=== PATIENT | male | born 1955 | race Caucasian/White ===

== ENCOUNTER 2017-09-22 06:17 | Day surgery (SDC) | payer OTHER ==
[2017-09-18 15:45] VITALS: BMI 25.0
[~2017-09-22 06:17] MED LIST: DEXAMETHASONE SOD PHOSPHATE 10 MG/ML 1 ML VIAL IV ONE; HEPARIN SODIUM,PORCINE 5,000 UNIT/ML 1 ML VIAL SQ ONE; LACTATED RINGERS 1,000 ML IV SCH; LIDOCAINE 1% 20 ML VIAL (10MG/ML) FOR IV START INTRADERMA PRN; MIDAZOLAM 2 MG/2 ML VIAL IV PRN; MORPHINE SULFATE 2 MG/ML SYRINGE IV PRN; ONDANSETRON 4 MG/2 ML VIAL IVP ONE; SCOPOLAMINE 1.5MG/72HR PATCH TRANSDERM ONE; ceFAZolin IN SWFI 2 GM/20 ML SYRINGE IVP ONE
[2017-09-22] MEDS ORDERED: LACTATED RINGERS 1,000 ML IV ONE ×2 (07:16→09:08)
--- NOTE | 2017-09-22 07:55 | P.GSHP ---
History of Present Illness H&P Date: 09/22/17 Chief Complaint: Incarcerated umbilical hernia This a 6-year-old male referred from Dr. Emely Baker. Patient rents today for laparoscopic robotic-assisted repair of incarcerated umbilical hernia. Past Medical History Past Medical History: Hyperlipidemia, Osteoarthritis (OA), Prostate Disorder History of Any Multi-Drug Resistant Organisms: None Reported Past Surgical History: Hernia Repair Additional Past Surgical History / Comment(s): inguinal hernia repair Past Anesthesia/Blood Transfusion Reactions: No Reported Reaction Smoking Status: Former smoker - Past Family History Mother Family Medical History: No Reported History Medications and Allergies Home Medications Medication Instructions Recorded Confirmed Type Atorvastatin [Lipitor] 40 mg PO HS 09/18/17 09/22/17 History Naproxen Sodium [Aleve] 220 mg PO BID PRN 09/18/17 09/18/17 History Prozac(Unknown Dose) 1 tab PO DAILY 09/18/17 09/22/17 History Seroquel(Unknown Dose) 1 tab PO HS 09/18/17 09/22/17 History Tamsulosin HCl [Flomax] 0.4 mg PO BID 09/18/17 09/22/17 History Allergies Allergy/AdvReac Type Severity Reaction Status Date / Time No Known Allergies Allergy Verified 09/18/17 14:44 Surgical - Exam Vital Signs Temp Pulse Resp BP Pulse Ox 97.9 F 95 18 156/90 98 09/22/17 07:03 09/22/17 07:03 09/22/17 07:03 09/22/17 07:03 09/22/17 07:03 - General well developed, no distress - Eyes PERRL - ENT normal pinna - Neck no masses - Respiratory normal expansion - Cardiovascular Rhythm: regular - Abdomen Abdomen: soft, non tender Hernia: umbilical (Incarcerated umbilical hernia 3 cm) Assessment and Plan Assessment: Incarcerated umbilical hernia. We'll perform laparoscopic robotic assistance repair.
[2017-09-22] MEDS ORDERED: PROPOFOL 10 MG/ML 20 ML VIAL IV ONE (07:58)
[2017-09-22] MEDS ORDERED: GLYCOPYRROLATE 0.2 MG/ML 2 ML VIAL ONE (07:58)
[2017-09-22] MEDS ORDERED: ROCURONIUM BROMIDE 10 MG/ML 10 ML VIAL IV ONE (07:58)
[2017-09-22] MEDS ORDERED: LIDOCAINE 1% INJ 10MG/ML (20 ML MDV) ONE (07:58)
[2017-09-22] MEDS ORDERED: NEOSTIGMINE 1 MG/ML 10 ML VIAL ONE (07:58)
[2017-09-22] MEDS ORDERED: SUCCINYLCHOLINE CHLORIDE 100 MG/5 ML SYR IV ONE (07:58)
[2017-09-22] MEDS ORDERED: fentaNYL (PF) 50 MCG/ML 2 ML AMP ONE (07:58)
[2017-09-22] MEDS ORDERED: BUPIVACAINE (PF) 0.25% 30 ML VIAL SQ ONE ×2 (08:24→08:30)
[2017-09-22 09:23] VITALS: TEMP 97.8
[2017-09-22] MEDS: fentaNYL (PF) 50 MCG/ML 2 ML AMP IVP ONE ×2 (09:31→09:38)
--- NOTE | 2017-09-22 09:38 | P.OP ---
Date of Procedure: 09/22/17 Preoperative Diagnosis: Incarcerated umbilical hernia Postoperative Diagnosis: Incarcerated umbilical hernia Procedure(s) Performed: Laparoscopic robotic system repair of incarcerated umbilical hernia Partial omentectomy Anesthesia: KARLA Surgeon: Dwight Gagnon Estimated Blood Loss (ml): 5 Pathology: other (Omentum) Condition: stable Disposition: PACU Description of Procedure: RThe patient was placed on the operating table in the supine position. He received general anesthesia. His abdomen was prepped and draped usual fashion. Using a 5 mm optical trocar under direct visualization the peritoneal cavity was entered in the left upper quadrant. The abdomen was then insufflated. The laparoscope was placed back into the perineal cavity. Next a 8 mm robotic trocar was placed in the left lower quadrant and a 12 mm robotic trocar was placed in the left lateral position. The original 5 mm trocar was exchanged for a 8 mm robotic trocar. The patient's placed in the left side up position. And the patient was undocked the robot. The umbilical hernia was visualized. Using hook cautery the peritoneum over the umbilical hernia was excised. Incarcerated omentum was excised. The fascial opening was repaired using 0V LOC suture. Next a piece of 11 cm round ventral light ST mesh was placed into the. Cavity and secured with 2 OV lock suture. The patient was undocked the robot. The needles were retrieved. The incarcerated omentum was retrieved. The fascia of the 12 mm trocar site was closed with 0 Ethibond suture. Skin was closed interrupted 3-0 Monocryl suture. Dermabond dressings was applied. Patient top procedure well and was sent to recovery room stable condition.
[2017-09-22] MEDS ORDERED: KETOROLAC 30 MG/ML 1 ML VIAL IVP ONE (09:45)
[2017-09-22] MEDS ORDERED: HYDROcodone/APAP 7.5-325MG 1 EACH TAB PO ONE (10:27)
[2017-09-22 12:20] VITALS: RESP 16
[2017-09-22] MEDS ORDERED: TAMSULOSIN 0.4 MG CAP.ER.24H PO STA (14:27)
[2017-09-22 15:25] VITALS: BP 140/85; PULSE 78
[2017-09-22] MEDS ORDERED: ONDANSETRON 4 MG/2 ML VIAL IVP ONE (16:35)
== END 2017-09-22 18:28 | disposition home or self-care (01) ==
LOC: OR 06:17
PROVIDERS: ATTEND Surgery
DX: K42.0 Umbilical hernia with obstruction, without gangrene (principal); E78.5 Hyperlipidemia, unspecified; M19.90 Unspecified osteoarthritis, unspecified site; N40.0 Benign prostatic hyperplasia without lower urinary tract symptoms; F32.9 Major depressive disorder, single episode, unspecified; Z87.891 Personal history of nicotine dependence; Z79.899 Other long term (current) drug therapy
CPT/HCPCS: 88305; 49653; C1781; J1644; J1100; J2405; J3010; J1885; J0690

== ENCOUNTER → 2019-03-29 | Outpatient (CLI) | payer OTHER ==
--- NOTE | 2019-03-29 11:36 | US ---
EXAMINATION TYPE: US venous doppler duplex LE LT DATE OF EXAM: 03/29/2019 11:06 AM COMPARISON: NONE CLINICAL HISTORY: Left Lower Ext, R22.42 swelling/mass. SIDE PERFORMED: Left TECHNIQUE: The lower extremity deep venous system is examined utilizing real time linear array sonog katlin with graded compression, doppler sonography and color-flow sonography. VESSELS IMAGED: External Iliac Vein (EIV) Common Femoral Vein Deep Femoral Vein Greater Saphenous Vein * Femoral Vein Popliteal Vein Small Saphenous Vein * Proximal Calf Veins (* superficial vessels) Left Leg: Negative for DVT IMPRESSION: 1. Left lower extremity ultrasound negative for deep venous thrombosis.
== END | disposition home or self-care (01) ==
LOC: RADUSWWP 10:35
PROVIDERS: ATTEND Family Medicine
DX: R22.42 Localized swelling, mass and lump, left lower limb (principal)

== ENCOUNTER → 2019-04-21 | Outpatient (CLI) | payer OTHER ==
--- NOTE | 2019-04-22 03:07 | MR ---
EXAMINATION TYPE: MR ankle LT wo con DATE OF EXAM: 04/21/2019 COMPARISON: None HISTORY: Lt ankle pain/swelling, no trauma; did not bring outside xrays Standard multiplanar, multisequence MRI departmental protocol Multiplanar, multisequence images of the left ankle were acquired. FINDINGS: The Achilles tendon is intact. Plantar fascia is intact. Ankle mortise is anatomic. Joint s paces are fairly normal. The collateral ligaments appear intact. There is a mild ankle joint effusion . There is no evidence of a fracture. I see no bony destructive process. The medial and lateral flexo r tendons of the ankle appear intact. There is moderate subcutaneous edema around the lower leg and a nkle and foot. There is a moderate plantar calcaneal spur. IMPRESSION: No fracture seen. Extensive subcutaneous edema. Calcaneal spurring. No evidence of ligament or tendon tear. Ankle joint effusion consistent with synovitis.
== END | disposition home or self-care (01) ==
LOC: RADMRIMAIN 18:21
PROVIDERS: ATTEND Nurse Practitioner Family
DX: M77.32 Calcaneal spur, left foot (principal)

== ENCOUNTER 2019-06-07 08:33 | Day surgery (SDC) | payer OTHER ==
[2019-06-07 09:34] VITALS: TEMP 97
[2019-06-07] MEDS ORDERED: LACTATED RINGERS 1,000 ML IV ONE (09:34)
[2019-06-07] MEDS ORDERED: PROPOFOL 10 MG/ML 20 ML VIAL IV ONE (10:13)
--- NOTE | 2019-06-07 11:05 | P.PCN ---
Date of Procedure: 06/07/19 Description of Procedure: BRIEF HISTORY: Patient is a 63-year-old pleasant male scheduled for an elective colonoscopy as a part of evaluation of change in bowel habits. Patient reports that during the summer hematuria. Of having multiple loose stools. Currently he reports that this is improved. No blood per rectum or family history of colon cancer. He reports last colonoscopy was approximately 11 years ago. PROCEDURE PERFORMED: Colonoscopy with polypectomy. PREOPERATIVE DIAGNOSIS: Change in bowel habits, last colonoscopy 11 years. ESTIMATED BLOOD LOSS: Minimal. IV sedation per Anesthesia. PROCEDURE: After informed consent was obtained, the patient, was brought into the endoscopy unit. IV sedation was administered by Anesthesia under continuous monitoring. Digital rectal examination was normal. Initially the Olympus CF-190 flexible video colonoscope was then inserted in the rectum, gradually advanced into the cecum without any difficulty. Careful examination was performed as the scope was gradually being withdrawn. Ileocecal valve and the appendiceal orifice were visualized and appeared normal. Prep was excellent. Mucosa of the cecum, ascending colon, transverse colon, descending colon, sigmoid colon, and rectum appeared normal. A 5 mm sessile ascending colon polyp removed with cold snare polypectomy. 6 mm sessile descending colon polyp removed with cold snare polypectomy. Diminutive 2 mm sigmoid polyp removed with cold forcep polypectomy. Diminutive 2 mm rectal polyp removed with cold forcep polypectomy. 2 rectal polyps measuring 4 mm and 6 mm in size removed with cold snare polypectomy. Random biopsies were taken of the left colon in the setting of altered bowel habits. Retroflexion was performed in the rectum and no lesions were seen. The patient tolerated the procedure well. IMPRESSION: 6 colonic polyps measuring from 2 mm in size to 6 mm in size (please see body of report for location, size and the technique of removal). Random biopsies of the left colon. RECOMMENDATIONS: Findings of this examination were discussed with the patient and his mother. Okay to resume diet. Okay to resume medications. Anticipate repeat colonoscopy in 3 years for high-risk colon polyps pending pathology from polypectomies. Await pathology from polypectomies.
[2019-06-07 11:29] VITALS: BP 132/89; PULSE 74; RESP 18
== END 2019-06-07 11:50 | disposition home or self-care (01) ==
LOC: ORWHC2ENDO 08:33
PROVIDERS: ATTEND Internal Medicine
DX: D12.2 Benign neoplasm of ascending colon (principal); D12.4 Benign neoplasm of descending colon; D12.5 Benign neoplasm of sigmoid colon; D12.8 Benign neoplasm of rectum; K62.1 Rectal polyp; E78.5 Hyperlipidemia, unspecified; N40.0 Benign prostatic hyperplasia without lower urinary tract symptoms; Z87.891 Personal history of nicotine dependence; Z79.899 Other long term (current) drug therapy; Z98.890 Other specified postprocedural states; Z87.448 Personal history of other diseases of urinary system
CPT/HCPCS: 88305; 45385; 45380; J2704

== ENCOUNTER 2021-06-11 09:15 | Inpatient (IN) | payer OTHER ==
[2021-06-11] MEDS ORDERED: DIPH,PERTUS(ACELL)TETVAC-LF 0.5 ML VIAL IM ONE (09:25)
[2021-06-11] MEDS ORDERED: SODIUM CHLORIDE 0.9% 1,000 ML IV STA (09:25)
[2021-06-11 09:42] LABS: Basophils % (A) 0 %; Eosinophils # (A) 0.1 k/uL (0-0.7); Eosinophils % (A) 1 %; HCT 40.2 % (39.0-53.0); HGB 13.5 gm/dL (13.0-17.5); Lymphocytes % (A) 26 %; MCH 33.1 pg (25.0-35.0); MCHC 33.6 g/dL (31.0-37.0); MCV 98.8 fL (80.0-100.0); Mean Platelet Volume 6.8; Monocytes # (A) 0.3 k/uL (0-1.0); Monocytes % (A) 4 %; Neutrophils # (A) 5.2 k/uL (1.3-7.7); Neutrophils % (A) 67 %; Platelet Count 204 k/uL (150-450); RBC 4.07 m/uL (4.30-5.90); WBC 7.7 k/uL (3.8-10.6)
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
[2021-06-11 09:51] LABS: AST 40 U/L (17-59); African American GFR (CKD) >90 (>60 ml/min/1.73 sqM); Albumin 3.5 g/dL (3.5-5.0); Alkaline Phosphatase 74 U/L (38-126); Carbon Dioxide 23 mmol/L (22-30); Glucose 148 mg/dL (74-99); Non-African American GFR(CKD) >90 (>60 ml/min/1.73 sqM)
[2021-06-11 09:56] LABS: Partial Thromboplastin Time 20.2 sec (22.0-30.0); Prothrombin Time 10.4 sec (9.0-12.0)
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
[2021-06-11 10:20] LABS: ALT 23 U/L (4-49); Anion Gap 9 mmol/L; Blood Urea Nitrogen 6 mg/dL (9-20); Calcium 7.7 mg/dL (8.4-10.2); Chloride 100 mmol/L (98-107); Potassium 3.6 mmol/L (3.5-5.1); Sodium 132 mmol/L (137-145); Total Bilirubin 0.4 mg/dL (0.2-1.3)
[2021-06-11 10:22] LABS: Alcohol 114 mg/dL
[2021-06-11 10:22] LABS: Appearance,Urine Clear (Clear); Bilirubin,Urine Negative (Negative); Blood,Urine Moderate (Negative); Color,Urine Yellow; Glucose,Urine (UA) Trace (Negative); Hyaline Casts,Urine 3 /lpf (0-2); Ketones,Urine Negative (Negative); Leukocyte Esterase,Urine Negative (Negative); Mucus,Urine Rare /hpf; Nitrite,Urine Negative (Negative); Protein,Urine 1+ (Negative); RBC,Urine 4 /hpf (0-5); Specific Gravity,Urine 1.013 (1.001-1.035); Urobilinogen,Urine <2.0 mg/dL (<2.0); WBC,Urine 1 /hpf (0-5)
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
[2021-06-11 10:29] LABS: Amphetamine Screen,Urine Not Detected (NotDetected); Barbiturate Screen,Urine Not Detected (NotDetected); Benzodiazepines Screen,Urine Not Detected (NotDetected); Cocaine Screen,Urine Not Detected (NotDetected); Methadone Screen, Urine Not Detected (NotDetected); Opiate Screen,Urine Not Detected (NotDetected); Oxycodone Screen, Urine Not Detected (NotDetected); Phencyclidine Screen,Urine Not Detected (NotDetected); Tricyclic Antidepressant,Urine Not Detected (NotDetected); Urn Cannabinoid Scrn Detected (NotDetected)
--- NOTE | 2021-06-11 10:38 | CT ---
EXAMINATION TYPE: CT brain yoniine wo con DATE OF EXAM: 06/11/2021 COMPARISON: None HISTORY: [facility] trauma CT DLP: 1337.8 mGycm Automated exposure control for dose reduction was used. TECHNIQUE: CT scan of the head and cervical spine are performed without contrast. FINDINGS: There is mild to moderate generalized degenerative change with no evidence of acute intra cranial hemorrhage or mass effect. No midline shift. Sinuses are clear. Orbits are symmetric. Assessment spinal canal is limited due to resolution and artifact. There is multilevel severe degener ative disc disease with facet arthropathy. Suspect canal stenosis C5-6 and C6-C7 with bilateral brian inal encroachment. Again noted is soft tissue fullness in the paraspinal region anterior to the T2 le reno. This could be related to soft tissue mass or adenopathy, extra medullary hematopoiesis. Hematoma or esophageal injury not excluded correlate clinically. There is a deformity of the right facet C6 suspicious for a fracture through the facet on the right. Additionally along the left facet at this level findings are also suspicious for hairline fracture. IMPRESSION: 1. No acute hemorrhage or mass effect. 2. Findings are suspicious for fractures through the bilateral facet of C6 no anterior listhesis. MRI is recommended. Multilevel severe degenerative disc disease, facet arthropathy, canal stenosis and f oraminal encroachment suspected. 3. Increased soft tissue attenuation paraspinal region and paraesophageal region at the cervical thor acic junction of indeterminate etiology possibly hematoma or mass.
[2021-06-11] MEDS ORDERED: DEXAMETHASONE SOD PHOSPHATE 10 MG/ML 1 ML VIAL IVP STA (12:01)
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
[2021-06-11] MEDS ORDERED: HYDROmorphone 0.5 MG/0.5 ML SYRINGE IVP STA (14:01)
[2021-06-11] MEDS ORDERED: SODIUM CHLORIDE 0.9% 500 ML 500 ML IV ONE (14:01)
--- NOTE | 2021-06-11 14:30 | P.PN ---
Progress Note - Text Progress Note Date: 06/11/21 Mri of CTL spine is reviewed. 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 There is pincer type lesion at C6-7 and Grade I anterior listhesis of C7-T1 which apperas chronic in nature. No fractures evident of C7-T1 at this time. C0-1 and C1-2 appear stable and w/o fracture T spine: T12 burst fracture as mentioned AOA4 type. No stenosis related. No retropulsion. Fracture does extend into the pedicle on the L side. Multilevel spondylotic changes of the T spine. No other fractures evident at this time. L spine: Multilevel lumbar spondylosis with varying degrees of central and foaminal stenosis due to disc collapse, dessication, boggy facets, facet arthrosis. There are modic edplate changes L1-2 due to complete disc collapse in this area. There is central and foraminal stenosis that is on the LHS of L5-S1 as well. No acute lumbar fractures evident at this time. No acute areas of compression noted. Continue with plan of C5-7 ACDF today urgently. Cont with steroids NPO
[2021-06-11] MEDS ORDERED: IV FLUID CONTINUATION 1,000 ML IV ONE (14:35)
[2021-06-11] MEDS ORDERED: LACTATED RINGERS 1,000 ML IV ONE ×4 (14:47→17:26)
[2021-06-11] MEDS ORDERED: MIDAZOLAM 2 MG/2 ML VIAL IVP ONE (15:00)
[2021-06-11] MEDS ORDERED: fentaNYL (PF) 50 MCG/ML 5 ML AMP IVP ONE ×2 (15:02→15:29)
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
[2021-06-11] MEDS ORDERED: TRANEXAMIC ACID 1,000 MG in SODIUM CHLORIDE 0.9% 100 ML IVPB ONE ×4 (15:14)
[2021-06-11] MEDS: ONDANSETRON 4 MG/2 ML VIAL ONE (15:28)
[2021-06-11] MEDS ORDERED: SODIUM CHLORIDE 0.9% 100 ML BAG ONE (16:10)
[2021-06-11] MEDS ORDERED: SUCCINYLCHOLINE CHLORIDE 100 MG/5 ML SYR IV ONE (16:10)
[2021-06-11] MEDS ORDERED: TRANEXAMIC ACID 1,000 MG/10 ML VIAL ONE (16:10)
[2021-06-11] MEDS ORDERED: MIDAZOLAM 2 MG/2 ML VIAL ONE (16:10)
[2021-06-11] MEDS ORDERED: fentaNYL (PF) 50 MCG/ML 2 ML AMP ONE (16:10)
[2021-06-11] MEDS ORDERED: KETAMINE 10 MG/ML 20 ML VIAL ONE (16:10)
[2021-06-11] MEDS ORDERED: PROPOFOL 10 MG/ML 20 ML VIAL IV ONE (16:10)
[2021-06-11] MEDS ORDERED: LIDOCAINE 1% INJ 10MG/ML (20 ML MDV) ONE (16:10)
[2021-06-11] MEDS ORDERED: ePHEDrine 50 MG/ML 1 ML AMP ONE (16:10)
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
[2021-06-11] MEDS ORDERED: HYDROcodone/APAP 7.5-325MG 1 EACH TAB PO PRN (19:05)
[2021-06-11] MEDS ORDERED: HYDROmorphone 0.5 MG/0.5 ML SYRINGE IVP PRN (19:07)
[2021-06-11] MEDS ORDERED: MAG HYDROX/AL HYDROX/SIMETH 30 ML CUP PO PRN (19:07)
[2021-06-11] MEDS ORDERED: SENNOSIDES-DOCUSATE SODIUM 1 EACH TAB PO PRN (19:07)
[2021-06-11] MEDS ORDERED: MAGNESIUM HYDROXIDE 2,400 MG/10 ML CUP PO PRN (19:07)
[2021-06-11] MEDS ORDERED: bisacodyL 10 MG SUPP RECTAL PRN (19:07)
--- NOTE | 2021-06-11 19:14 | P.PN ---
Progress Note - Text Progress Note Date: 06/11/21 Brief Post Op: Surgeon: Elke Assist: Branch Pre op dx; C6 7 bilateral facet fractures with severe stenosis C5 to C7 Post op dx: Same Procedure: C5 to C7 ACDF Anesthesia: GETA EBL: 50 Fluids: 1200 UO: 220 Dispo: Stable to PACU Post op Plan: Post operative noncontrasted CT scan Encourage ambulation IS 10x/hr Teds/SCDs Pain control Hard cervical collar at all times Record Drain output Neuro checks every 3 hours Patient moving all 4 extremities postop still weak in the left lower extremity does not follow commands well secondary to just waking up from surgery.
--- NOTE | 2021-06-11 19:19 | FL ---
EXAMINATION TYPE: FL guidance operating room DATE OF EXAM: 06/11/2021 FLUOROSCOPY Fluoroscopy time of 39.9 seconds was used during hardware placement. 0 image/s document/s the proced ure.
[2021-06-11] MEDS: DEXAMETHASONE SOD PHOSPHATE 10 MG/ML 1 ML VIAL IVP SCH ×2 (22:23→22:29)
[2021-06-11] MEDS: ACETAMINOPHEN TAB 325 MG TAB PO SCH (22:30)
[2021-06-11] MEDS: ONDANSETRON 4 MG/2 ML VIAL IVP PRN (22:36)
[2021-06-11] MEDS: SODIUM CHLORIDE 0.9% 1,000 ML IV SCH (22:37)
--- NOTE | 2021-06-11 23:07 | XR ---
EXAMINATION TYPE: XR cervical spine limited DATE OF EXAM: 06/11/2021 7:08 PM INDICATION: Patient age:Male; 65 years old; Reason for study: HARDWARE PLACEMENT; FINDINGS/TECHNIQUE/IMPRESSION: Intraoperative fluoroscopic services were provided for internal fixation of a cervical spine. Total f luoroscopy time is 39.9 seconds with a total of 6 submitted images to PACS. Please see the operative note for further details. Gross evidence of fracture. Fixation hardware in place and appears intact. Endotracheal tube is present.
[2021-06-11] MEDS: HYDROmorphone 1 MG/ML 1 ML SYRINGE IVP PRN (23:17)
[2021-06-12] MEDS: DEXAMETHASONE SOD PHOSPHATE 10 MG/ML 1 ML VIAL IVP SCH ×6 (02:25→20:55)
[2021-06-12] MEDS: HYDROmorphone 1 MG/ML 1 ML SYRINGE IVP PRN ×5 (03:12→23:59)
[2021-06-12] MEDS: ACETAMINOPHEN TAB 325 MG TAB PO SCH ×4 (05:39→23:59)
[2021-06-12 05:59] LABS: Basophils % (A) 0 %; Eosinophils % (A) 0 %; HCT 37.6 % (39.0-53.0); HGB 12.4 gm/dL (13.0-17.5); Lymphocytes # (A) 0.4 k/uL (1.0-4.8); Lymphocytes % (A) 3 %; MCH 33.1 pg (25.0-35.0); MCHC 32.9 g/dL (31.0-37.0); MCV 100.7 fL (80.0-100.0); Mean Platelet Volume 7.1; Monocytes # (A) 0.3 k/uL (0-1.0); Monocytes % (A) 2 %; Neutrophils % (A) 94 %; Platelet Count 176 k/uL (150-450); RBC 3.74 m/uL (4.30-5.90); RDW 13.8 % (11.5-15.5); WBC 12.7 k/uL (3.8-10.6)
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
[2021-06-12] MEDS: ONDANSETRON 4 MG/2 ML VIAL IVP PRN (09:14)
[2021-06-12] MEDS: SODIUM CHLORIDE 0.9% 1,000 ML IV SCH (09:14)
--- NOTE | 2021-06-12 09:45 | CT ---
EXAMINATION TYPE: CT cervical spine wo con DATE OF EXAM: 06/12/2021 COMPARISON: MRI and CT cervical spine yesterday HISTORY: Post op CT DLP: 560.1 mGycm. Automated Exposure Control for Dose Reduction was Utilized. TECHNIQUE: CT scan of the cervical spine is obtained without contrast, axial images are obtained, sa gittal and coronal reformatted images are also reviewed. FINDINGS: There is new anterior fusion plate and metallic disc material C5-C7 levels with satisfactor y and improved alignment after surgery. Some adjacent foci of air present including anterior spinal c anal sagittal image 52 at C5 level. There is stable anterior positioning of the C7 spinous process effacing the posterior aspect of the s jeronimo canal sagittal image [address] sagittal image 32 and MRI sagittal image 9 wh ere it extends to the posterior level of the spinal cord. [id number] disc space narrowing and spurring C4-C5 level redemonstrated. Slight underlying scol iotic curvature on coronal images. C1-C2 articulation maintained. Axial images redemonstrate multilevel left-sided uncovertebral facet degenerative changes causing mul tilevel left-sided neural foraminal narrowing. Additional involvement right C5-C6 and left C6-C7 leve ls remains present. Persistent bony fragmentation into the superior aspect of the left C6-C7 neural foramina sagittal angely ge 59 at site of fracture noted. Thyroid gland remains within normal limits. Lung apices show emphysematous change without pneumothora x. Foci of subcutaneous air extending inferiorly. Some posterior right upper lung opacity favoring at electatic change is now present. IMPRESSION: Improved alignment after surgical fixation. Some persistent areas of concern noted as det tung above.
[2021-06-12 11:20] LABS: African American GFR (CKD) 114.8 (60.0-200.0); Anion Gap 12.4 mmol/L (10.00-18.00); BUN/Creat Ratio 14.71 Ratio (12.00-20.00); Blood Urea Nitrogen 10.3 mg/dL (9.0-27.0); Calcium 8.2 mg/dL (8.7-10.3); Carbon Dioxide 20.6 mmol/L (20.0-27.5); Potassium 4.4 mmol/L (3.5-5.5)
[2021-06-12] MEDS ORDERED: IV FLUID CONTINUATION 700 ML IV ONE (12:46)
[2021-06-12 12:48] LABS: Glucose,Whole Blood 129 mg/dL (75-99)
[2021-06-12] MEDS: ONDANSETRON 4 MG/2 ML VIAL ONE (13:22)
[2021-06-12] MEDS ORDERED: DEXAMETHASONE SOD PHOSPHATE 4 MG/ML 1 ML VIAL IVP ONE (13:22)
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
[2021-06-12] MEDS ORDERED: MIDAZOLAM 2 MG/2 ML VIAL ONE (14:06)
[2021-06-12] MEDS ORDERED: PROPOFOL 10 MG/ML 20 ML VIAL IV ONE (14:06)
[2021-06-12] MEDS ORDERED: GLYCOPYRROLATE 0.2 MG/ML 2 ML VIAL ONE (14:06)
[2021-06-12] MEDS ORDERED: fentaNYL (PF) 50 MCG/ML 2 ML AMP ONE (14:06)
[2021-06-12] MEDS ORDERED: KETAMINE 10 MG/ML 20 ML VIAL ONE (14:06)
[2021-06-12] MEDS ORDERED: PHENYLEPHRINE-0.9% NACL SYG 1,000 MCG/10 ML SYRINGE ONE (14:06)
[2021-06-12] MEDS ORDERED: SUCCINYLCHOLINE CHLORIDE 100 MG/5 ML SYR IV ONE (14:06)
[2021-06-12] MEDS ORDERED: LIDOCAINE 1% INJ 10MG/ML (20 ML MDV) ONE (14:06)
[2021-06-12] MEDS ORDERED: ALBUMIN HUMAN 5% (25gm) 500 ML VIAL IVPB ONE (14:06)
[2021-06-12] MEDS ORDERED: BUPIVACAINE (PF) 0.5% 30 ML VIAL SQ ONE (15:21)
[2021-06-12] MEDS ORDERED: ceFAZolin 3,000 MG in SODIUM CHLORIDE 0.9% IRRIGATIO 3,000 ML IRRIGATION ONE (15:37)
[2021-06-12] MEDS ORDERED: LORazepam 2 MG/ML INJ IV PRN ×2 (16:44)
[2021-06-12] MEDS ORDERED: THIAMINE 100 MG/ML 2 ML VIAL IM STA (16:44)
[2021-06-12] MEDS ORDERED: LACTATED RINGERS 1,000 ML IV ONE (16:59)
[2021-06-12] MEDS ORDERED: ONDANSETRON 4 MG/2 ML VIAL IVP ONE (18:08)
[2021-06-12] MEDS ORDERED: HYDROmorphone 0.5 MG/0.5 ML SYRINGE IVP ONE (18:08)
--- NOTE | 2021-06-12 19:45 | XR ---
INDICATION PROVIDED: Intraoperative thoracolumbar fusion. COMPARISON: CT 06/11/2021. TECHNIQUE: 19 stored intraoperative fluoroscopic images of the thoracolumbar spine in the AP and late ral projections for surgical hardware localization were created. FINDINGS: Intraoperative fluoroscopic images obtained during thoracolumbar spine fusion. Total fluoroscopic ti me is 180 seconds. IMPRESSION: Intraoperative images obtained during thoracolumbar spine fusion. See operative report for surgical details.
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
[2021-06-12] MEDS: PANTOPRAZOLE 40 MG/10 ML VIAL IVP SCH (20:54)
[2021-06-12] MEDS: TAMSULOSIN 0.4 MG CAP.ER.24H PO SCH (20:54)
[2021-06-12] MEDS: ATORVASTATIN 20 MG TAB PO SCH (20:55)
[2021-06-12] MEDS: HEPARIN SODIUM,PORCINE/PF 5,000 UNIT/0.5 ML SYRINGE SQ SCH (20:55)
[2021-06-12] MEDS: QUEtiapine 100 MG TAB PO SCH (20:56)
[2021-06-13] MEDS: HYDROmorphone 1 MG/ML 1 ML SYRINGE IVP PRN ×3 (02:53→20:16)
[2021-06-13] MEDS: DEXAMETHASONE SOD PHOSPHATE 10 MG/ML 1 ML VIAL IVP SCH ×6 (02:56→20:16)
[2021-06-13] MEDS: ACETAMINOPHEN TAB 325 MG TAB PO SCH ×3 (04:52→18:08)
[2021-06-13 06:29] LABS: Basophils % (A) 0 %; Eosinophils % (A) 0 %; HCT 30.5 % (39.0-53.0); Lymphocytes # (A) 0.8 k/uL (1.0-4.8); Lymphocytes % (A) 5 %; MCH 32.9 pg (25.0-35.0); MCHC 32.5 g/dL (31.0-37.0); Macrocytosis Slight; Mean Platelet Volume 7.2; Monocytes # (A) 0.7 k/uL (0-1.0); Monocytes % (A) 5 %; Neutrophils # (A) 13.6 k/uL (1.3-7.7); Neutrophils % (A) 90 %; Platelet Count 146 k/uL (150-450); RBC 3.01 m/uL (4.30-5.90); RDW 14.3 % (11.5-15.5); WBC 15.1 k/uL (3.8-10.6)
[2021-06-13 06:33] LABS: HGB 9.9 gm/dL (13.0-17.5)
[2021-06-13] MEDS: ONDANSETRON 4 MG/2 ML VIAL IVP PRN ×2 (07:37→13:04)
[2021-06-13] MEDS: PANTOPRAZOLE 40 MG/10 ML VIAL IVP SCH (07:37)
[2021-06-13] MEDS: HEPARIN SODIUM,PORCINE/PF 5,000 UNIT/0.5 ML SYRINGE SQ SCH ×2 (07:38→20:16)
[2021-06-13] MEDS: FLUoxetine HCL 20 MG CAP PO SCH (07:38)
[2021-06-13] MEDS: TAMSULOSIN 0.4 MG CAP.ER.24H PO SCH (07:38)
[2021-06-13] MEDS: VITAMIN D3 PO SCH (07:39)
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
--- NOTE | 2021-06-13 07:54 | FL ---
EXAMINATION TYPE: FL guidance operating room DATE OF EXAM: 06/12/2021 FLUOROSCOPY Fluoroscopy time of not reported was used during T10-L2 stabilization. 19 image/s document/s the pro cedure.
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
[2021-06-13] MEDS: LORazepam 2 MG/ML INJ IV PRN (10:14)
[2021-06-13 10:21] LABS: African American GFR (CKD) 131.8 (60.0-200.0); Anion Gap 9.4 mmol/L (10.00-18.00); BUN/Creat Ratio 23.2 Ratio (12.00-20.00); Blood Urea Nitrogen 11.6 mg/dL (9.0-27.0); Calcium 8.3 mg/dL (8.7-10.3); Carbon Dioxide 24.6 mmol/L (20.0-27.5); Non-African American GFR(CKD) 113.7 (60.0-200.0); Potassium 4.2 mmol/L (3.5-5.5)
--- NOTE | 2021-06-13 11:29 | XR ---
EXAMINATION TYPE: XR chest 1V portable DATE OF EXAM: 06/13/2021 Comparison: 06/11/2021 Clinical History: 65-year-old male pneumonia Findings: ACDF hardware. Heart normal size. Some mild patchy medial right basilar and left basilar opacity like ly atelectasis mild hyperinflation. Lumbar fusion hardware noted. Impression: COPD and strandy basilar areas of atelectasis. Otherwise, no definite acute process.
[2021-06-13] MEDS: CYCLOBENZAPRINE 5 MG TAB PO PRN (13:03)
[2021-06-13] MEDS: 0.9% NACL WITH KCL 20 MEQ/L 1,000 ML with THIAMINE 100 MG, FOLIC ACID 1 MG IV SCH ×6 (14:58)
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
[2021-06-13] MEDS: HYDROcodone/APAP 10-325MG 1 EACH TAB PO PRN (18:08)
[2021-06-13] MEDS: ATORVASTATIN 20 MG TAB PO SCH (20:16)
[2021-06-13] MEDS: QUEtiapine 100 MG TAB PO SCH (20:16)
[2021-06-14] MEDS: DEXAMETHASONE SOD PHOSPHATE 10 MG/ML 1 ML VIAL IVP SCH ×7 (00:39→23:22)
[2021-06-14] MEDS: ACETAMINOPHEN TAB 325 MG TAB PO SCH ×4 (00:39→21:26)
[2021-06-14] MEDS: HYDROcodone/APAP 10-325MG 1 EACH TAB PO PRN (05:35)
[2021-06-14 05:49] LABS: Basophils % (A) 0 %; Eosinophils % (A) 0 %; HCT 29.4 % (39.0-53.0); HGB 9.9 gm/dL (13.0-17.5); Lymphocytes # (A) 0.5 k/uL (1.0-4.8); Lymphocytes % (A) 4 %; MCH 32.8 pg (25.0-35.0); MCHC 33.6 g/dL (31.0-37.0); MCV 97.8 fL (80.0-100.0); Mean Platelet Volume 7.5; Monocytes # (A) 0.3 k/uL (0-1.0); Monocytes % (A) 3 %; Neutrophils # (A) 10.3 k/uL (1.3-7.7); Neutrophils % (A) 93 %; Platelet Count 135 k/uL (150-450); RBC 3.01 m/uL (4.30-5.90); RDW 13.1 % (11.5-15.5); WBC 11.1 k/uL (3.8-10.6)
[2021-06-14] MEDS: LORazepam 2 MG/ML INJ IV PRN ×2 (06:00→21:18)
[2021-06-14] MEDS: HYDROmorphone 1 MG/ML 1 ML SYRINGE IVP PRN ×2 (11:48→22:58)
[2021-06-14] MEDS: TAMSULOSIN 0.4 MG CAP.ER.24H PO SCH (11:51)
[2021-06-14] MEDS: HEPARIN SODIUM,PORCINE/PF 5,000 UNIT/0.5 ML SYRINGE SQ SCH ×2 (11:51→23:31)
[2021-06-14] MEDS: FLUoxetine HCL 20 MG CAP PO SCH (11:52)
[2021-06-14] MEDS: VITAMIN D3 PO SCH (11:52)
[2021-06-14] MEDS: PANTOPRAZOLE 40 MG/10 ML VIAL IVP SCH (11:52)
[2021-06-14] MEDS: 0.9% NACL WITH KCL 20 MEQ/L 1,000 ML with THIAMINE 100 MG, FOLIC ACID 1 MG IV SCH ×6 (11:53→23:02)
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
[2021-06-14] MEDS ORDERED: IV FLUID CONTINUATION 1,000 ML IV ONE (13:50)
[2021-06-14] MEDS ORDERED: ONDANSETRON 4 MG/2 ML VIAL IVP ONE (13:51)
[2021-06-14] MEDS ORDERED: SODIUM CHLORIDE 0.9% 100 ML BAG ONE (14:14)
[2021-06-14] MEDS ORDERED: LIDOCAINE 1% INJ 10MG/ML (20 ML MDV) ONE (14:14)
[2021-06-14] MEDS ORDERED: fentaNYL (PF) 50 MCG/ML 2 ML AMP ONE (14:14)
[2021-06-14] MEDS ORDERED: PROPOFOL 10 MG/ML 20 ML VIAL IV ONE (14:14)
[2021-06-14] MEDS ORDERED: ROCURONIUM 10 MG/ML (5 ML VIAL) IV ONE (14:14)
[2021-06-14] MEDS ORDERED: KETAMINE 10 MG/ML 20 ML VIAL ONE (14:14)
[2021-06-14] MEDS ORDERED: SUCCINYLCHOLINE CHLORIDE 100 MG/5 ML SYR IV ONE (14:14)
[2021-06-14] MEDS ORDERED: TRANEXAMIC ACID 1,000 MG/10 ML VIAL ONE (14:14)
[2021-06-14] MEDS ORDERED: MIDAZOLAM 2 MG/2 ML VIAL ONE (14:14)
[2021-06-14] MEDS ORDERED: THROMBIN (BOVINE) 5,000 UNIT VIAL TOPICAL ONE (14:20)
[2021-06-14] MEDS ORDERED: GELATIN SPONGE,ABSORB (LARGE) 1 EACH SPONGE TOPICAL ONE (14:20)
[2021-06-14] MEDS ORDERED: BUPIVACAIN-EPI 0.25%-1:200,000 30 ML VIAL SQ ONE (14:20)
[2021-06-14] MEDS ORDERED: TRANEXAMIC ACID 1,000 MG in SODIUM CHLORIDE 0.9% 100 ML IVPB ONE ×2 (15:04→15:05)
[2021-06-14] MEDS ORDERED: ceFAZolin 3,000 MG in SODIUM CHLORIDE 0.9% IRRIGATIO 3,000 ML IRRIGATION ONE (16:10)
[2021-06-14 16:27] LABS: Partial Thromboplastin Time 26.4 sec (22.0-30.0); Prothrombin Time 10.7 sec (9.0-12.0)
[2021-06-14] MEDS ORDERED: VANCOMYCIN 1,000 MG VIAL MISCELLANE ONE (17:50)
[2021-06-14] MEDS ORDERED: LACTATED RINGERS 1,000 ML IV ONE ×2 (18:04→18:05)
--- NOTE | 2021-06-14 18:51 | P.PN ---
Progress Note - Text Progress Note Date: 06/14/21 Brief Post op: Pt cecile hardwick. PACU. VSS. Still groggy, not following commands. Will go to fl oor when awake and stable per PACU staff and anesthesia services.
[2021-06-14 19:23] LABS: Basophils % (A) 0 %; Eosinophils % (A) 0 %; HCT 26.6 % (39.0-53.0); HGB 9.2 gm/dL (13.0-17.5); Lymphocytes # (A) 0.5 k/uL (1.0-4.8); Lymphocytes % (A) 6 %; MCH 33.3 pg (25.0-35.0); MCHC 34.6 g/dL (31.0-37.0); MCV 96.1 fL (80.0-100.0); Mean Platelet Volume 7.5; Monocytes # (A) 0.5 k/uL (0-1.0); Monocytes % (A) 6 %; Neutrophils # (A) 7.1 k/uL (1.3-7.7); Neutrophils % (A) 87 %; Platelet Count 121 k/uL (150-450); RBC 2.76 m/uL (4.30-5.90); RDW 13.1 % (11.5-15.5); WBC 8.2 k/uL (3.8-10.6)
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
[2021-06-14] MEDS: QUEtiapine 100 MG TAB PO SCH (23:12)
[2021-06-14] MEDS: ATORVASTATIN 20 MG TAB PO SCH (23:12)
[2021-06-15] MEDS: ACETAMINOPHEN TAB 325 MG TAB PO SCH ×5 (01:31→22:56)
[2021-06-15] MEDS: HYDROmorphone 1 MG/ML 1 ML SYRINGE IVP PRN ×7 (03:59→22:56)
[2021-06-15 04:23] LABS: Basophils % (A) 0 %; Eosinophils % (A) 0 %; HCT 29.9 % (39.0-53.0); Lymphocytes # (A) 0.3 k/uL (1.0-4.8); Lymphocytes % (A) 3 %; MCH 32.8 pg (25.0-35.0); MCHC 33.5 g/dL (31.0-37.0); MCV 97.9 fL (80.0-100.0); Mean Platelet Volume 7.4; Monocytes # (A) 0.4 k/uL (0-1.0); Monocytes % (A) 3 %; Neutrophils # (A) 10.8 k/uL (1.3-7.7); Neutrophils % (A) 93 %; Platelet Count 136 k/uL (150-450); RBC 3.06 m/uL (4.30-5.90); RDW 13.9 % (11.5-15.5); WBC 11.5 k/uL (3.8-10.6)
[2021-06-15] MEDS: DEXAMETHASONE SOD PHOSPHATE 10 MG/ML 1 ML VIAL IVP SCH ×5 (05:25→21:00)
[2021-06-15] MEDS: LORazepam 2 MG/ML INJ IV PRN (05:27)
[2021-06-15] MEDS: HEPARIN SODIUM,PORCINE/PF 5,000 UNIT/0.5 ML SYRINGE SQ SCH ×2 (08:25→21:01)
[2021-06-15] MEDS: TAMSULOSIN 0.4 MG CAP.ER.24H PO SCH (08:26)
[2021-06-15] MEDS: FLUoxetine HCL 20 MG CAP PO SCH (08:26)
[2021-06-15] MEDS: PANTOPRAZOLE 40 MG/10 ML VIAL IVP SCH (08:27)
[2021-06-15] MEDS: VITAMIN D3 PO SCH (09:17)
[2021-06-15 10:12] LABS: African American GFR (CKD) 127.1 (60.0-200.0); Anion Gap 9.4 mmol/L (10.00-18.00); BUN/Creat Ratio 25.27 Ratio (12.00-20.00); Blood Urea Nitrogen 13.8 mg/dL (9.0-27.0); Calcium 7.8 mg/dL (8.7-10.3); Carbon Dioxide 26.2 mmol/L (20.0-27.5); Non-African American GFR(CKD) 109.7 (60.0-200.0); Potassium 4.4 mmol/L (3.5-5.5)
--- NOTE | 2021-06-15 12:10 | P.PN ---
Progress Note - Text Progress Note Date: 06/15/21 Patient is seen lying in bed. Cervical collars in place. He does complain of some back pain. He has no other complaints at this point. He is able to move all 4 extremities but does report some numbness in the upper extremities. There appeared to be good perfusion to all 4 extremities. Hb:10 Impression: Cervical and thoracic spine fractures Plan: Continue current plan as per Dr. Bedoya Medical management
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
[2021-06-15] MEDS: 0.9% NACL WITH KCL 20 MEQ/L 1,000 ML with THIAMINE 100 MG, FOLIC ACID 1 MG IV SCH ×6 (16:16→21:00)
[2021-06-15] MEDS: ONDANSETRON 4 MG/2 ML VIAL IVP PRN (16:33)
[2021-06-15] MEDS: HYDROcodone/APAP 10-325MG 1 EACH TAB PO PRN (16:33)
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
--- NOTE | 2021-06-15 20:46 | FL ---
EXAMINATION TYPE: FL guidance operating room DATE OF EXAM: 06/14/2021 HISTORY: Fluoroscopy time 1 minute and 7 seconds of fluoroscopy provided. IMPRESSION: 1. Fluoroscopy time.
[2021-06-15] MEDS: QUEtiapine 100 MG TAB PO SCH (21:00)
[2021-06-15] MEDS: ATORVASTATIN 20 MG TAB PO SCH (21:00)
[2021-06-16] MEDS: DEXAMETHASONE SOD PHOSPHATE 10 MG/ML 1 ML VIAL IVP SCH ×6 (00:47→22:52)
[2021-06-16] MEDS: HYDROcodone/APAP 10-325MG 1 EACH TAB PO PRN (00:48)
[2021-06-16] MEDS: HYDROmorphone 1 MG/ML 1 ML SYRINGE IVP PRN ×5 (04:44→23:02)
[2021-06-16] MEDS: ACETAMINOPHEN TAB 325 MG TAB PO SCH ×3 (04:44→18:23)
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
[2021-06-16] MEDS: FLUoxetine HCL 20 MG CAP PO SCH (09:54)
[2021-06-16] MEDS: TAMSULOSIN 0.4 MG CAP.ER.24H PO SCH (09:55)
[2021-06-16] MEDS: HEPARIN SODIUM,PORCINE/PF 5,000 UNIT/0.5 ML SYRINGE SQ SCH ×2 (09:55→22:53)
[2021-06-16] MEDS: PANTOPRAZOLE 40 MG/10 ML VIAL IVP SCH (09:55)
[2021-06-16] MEDS: VITAMIN D3 PO SCH (09:56)
[2021-06-16] MEDS: LORazepam 2 MG/ML INJ IV PRN ×3 (11:10→20:53)
[2021-06-16] MEDS: CYCLOBENZAPRINE 5 MG TAB PO PRN (11:11)
--- NOTE | 2021-06-16 11:42 | P.PN ---
Progress Note - Text Progress Note Date: 06/16/21 Patient seen. He complains of some back pain. No new issues. Cervical collar in place. Moving all 4 extremities. Impression/Plan: Recs as per Dr Bedoya Recs as per Medical/Surgial DVT prophylaxis
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
[2021-06-16] MEDS: SODIUM CHLORIDE 0.9% 1,000 ML IV SCH (17:14)
--- NOTE | 2021-06-16 21:47 | CT ---
EXAMINATION TYPE: CT cervical spine wo con DATE OF EXAM: 06/16/2021 COMPARISON: 06/12/2021 HISTORY: Post op. Pt experiencing foot drop. Best possible images given patient would not follow comm ands to remain still. CT DLP: 786.50 mGycm Automated exposure control for dose reduction was used. Images obtained from the skull base to T1 vertebra without contrast. Vertebra have fairly normal alignment. There is anterior fusion surgery at C5-6 and C6-7. There is po sterior fusion surgery from C4 to the T2 vertebra. There are posterior skin chandan. There is multile reno laminectomy defect in the lower cervical spine. There is posterior brain at the surgery site. The prevertebral soft tissues are intact. IMPRESSION: There is recent posterior multilevel fusion surgery. No definite complicating process seen. Exam limi audrey by metal artifact.
[2021-06-16] MEDS: ATORVASTATIN 20 MG TAB PO SCH (22:52)
[2021-06-16] MEDS: QUEtiapine 100 MG TAB PO SCH (22:52)
[2021-06-17] MEDS: ACETAMINOPHEN TAB 325 MG TAB PO SCH ×3 (00:23→13:16)
[2021-06-17] MEDS: DEXAMETHASONE SOD PHOSPHATE 10 MG/ML 1 ML VIAL IVP SCH ×5 (01:25→15:30)
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
[2021-06-17] MEDS: HYDROmorphone 1 MG/ML 1 ML SYRINGE IVP PRN ×4 (05:13→20:01)
[2021-06-17 07:09] LABS: Basophils % (A) 0 %; Eosinophils % (A) 0 %; HCT 27.4 % (39.0-53.0); HGB 9.3 gm/dL (13.0-17.5); Lymphocytes # (A) 0.3 k/uL (1.0-4.8); Lymphocytes % (A) 2 %; MCV 97.1 fL (80.0-100.0); Mean Platelet Volume 7.4; Monocytes # (A) 0.4 k/uL (0-1.0); Monocytes % (A) 4 %; Neutrophils % (A) 94 %; Platelet Count 140 k/uL (150-450); RBC 2.83 m/uL (4.30-5.90); RDW 13.4 % (11.5-15.5); WBC 11.8 k/uL (3.8-10.6)
[2021-06-17 07:19] LABS: African American GFR (CKD) >90 (>60 ml/min/1.73 sqM); Anion Gap 0 mmol/L; Blood Urea Nitrogen 17 mg/dL (9-20); Calcium 7.8 mg/dL (8.4-10.2); Carbon Dioxide 33 mmol/L (22-30); Chloride 99 mmol/L (98-107); Glucose 115 mg/dL (74-99); Magnesium 2.3 mg/dL (1.6-2.3); Non-African American GFR(CKD) >90 (>60 ml/min/1.73 sqM); Potassium 4.4 mmol/L (3.5-5.1); Sodium 132 mmol/L (137-145)
[2021-06-17] MEDS: LORazepam 2 MG/ML INJ IV PRN ×2 (08:10→17:29)
[2021-06-17] MEDS: PANTOPRAZOLE 40 MG/10 ML VIAL IVP SCH (08:10)
[2021-06-17] MEDS: TAMSULOSIN 0.4 MG CAP.ER.24H PO SCH (08:11)
[2021-06-17] MEDS: VITAMIN D3 PO SCH (08:11)
[2021-06-17] MEDS: HEPARIN SODIUM,PORCINE/PF 5,000 UNIT/0.5 ML SYRINGE SQ SCH ×2 (08:11→21:32)
[2021-06-17] MEDS: FLUoxetine HCL 20 MG CAP PO SCH (08:11)
[2021-06-17] MEDS: SODIUM CHLORIDE 0.9% 1,000 ML IV SCH ×2 (08:22→23:46)
[2021-06-17] MEDS: HYDROcodone/APAP 10-325MG 1 EACH TAB PO PRN ×2 (08:24→14:07)
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
--- NOTE | 2021-06-17 10:41 | CT ---
EXAMINATION TYPE: CT brain cspine wo con DATE OF EXAM: 06/17/2021 COMPARISON: Cervical spine 06/16/2021 HISTORY: 65-year-old male Confusion and s/p cervical surgery CT DLP: 3013 mGycm Automated exposure control for dose reduction was used. Technique: Examination of the head was done in axial plane without intravenous contrast. Coronal and sagittal reconstructions performed. CT of the cervical spine was obtained in axial plane without intravenous injection of contrast mater ial. Coronal and sagittal reformatted images were obtained from the axial views for evaluation of f ractures, spinal alignment and canal. FINDINGS: Head: There is extensive patient motion degrading the exam. Unable to reliably exclude any abnormal extra-a xial fluid collection. No midline shift, hydrocephalus, effacement of basal subarachnoid cisterns, or large intraparenchymal hematoma seen. Partially empty sella. Leftward nasal septal deviation. Visualized paranasal sinuses and mastoid air cells well pneumatized. Orbits and globes are intact. Degenerative changes at the TMT joints. Cervical spine: Motion degraded exam. A right-sided anterior surgical drain terminates at the C5-C6 level. A right-sided posterior surgical drain courses down the surgical laminectomy bed at C5-C7 levels There are post surgical changes of C5-C7 ACDF. Additional posterior cervical fusion from C4 through T2 posterior cervical fusion. Lateral osseous fu mani changes are present with laminectomies from C4 through C7 levels. Streak and beam hardening artifact from patient's orthopedic hardware limits evaluation. Posterior skin chandan. Grade 1 anterolisthesis C2-C3 secondary to severe hypertrophic facet arthropathy. Grade 1 anterolisthesis at C7-T1 is unchanged. No prevertebral soft tissue swelling seen. Of note, a segment of the right T1 pedicular screw has an extraosseous course and the distal aspect i s within the medial right second rib and costovertebral joint. The left T2 pedicular screw tip extends just beyond the anterior vertebral body cortex and abuts the posterior wall of the esophagus. Generalized soft tissue swelling relating to the patient's surgery. Some residual pleural-based thick ening/hematoma along the posteromedial right apex. Sagittal and coronal reformatted images confirm above findings. COMBINED IMPRESSION: HEAD: 1. Significantly motion degraded exam. No mass effect, midline shift or hydrocephalus. No obvious int raparenchymal hematoma. Assessment of the extra-axial spaces is suboptimal. CERVICAL SPINE: 2. Relatively similar postoperative appearance with anterior and posterior surgical drains in place a nd posterior skin chandan. Underlying C5-C7 ACDF, posterior cervical fusion from C4 down through T2, lateral osseous fusion changes, and laminectomies from C4 through C7. Postoperative soft tissue edema . 3. Of note, a segment of the right T1 pedicular screw has an extraosseous course and the distal aspec t of the screw is within the head of the right second rib and costovertebral joint. 4. Also, of questionable clinical significance, the left T2 pedicular screw tip extends just beyond t he anterior vertebral body cortex and abuts the posterior wall of the esophagus.
[2021-06-17 10:50] LABS: ABG Base Excess 9.1 mmol/L; ABG HCO3 32 mmol/L (21-25); ABG Oxygen Saturation 95.9 % (94-97); ABG PCO2 40 mmHg (35-45); ABG PH 7.51 (7.35-7.45); ABG PO2 69 mmHg (83-108); ABG TCO2 33 mmol/L (19-24); Allen Test Performed? Yes
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
[2021-06-17] MEDS: CYCLOBENZAPRINE 5 MG TAB PO PRN (13:14)
[2021-06-17] MEDS: THIAMINE 100 MG/ML 2 ML VIAL IVP SCH (13:47)
[2021-06-17] MEDS ORDERED: CYCLOBENZAPRINE 5 MG TAB PO PRN (14:55)
[2021-06-17 16:37] LABS: Folate, Serum 7.8 ng/mL (4.40-31.00)
[2021-06-17] MEDS ORDERED: ACETAMINOPHEN TAB 325 MG TAB PO SCH (18:00)
[2021-06-17] MEDS: ACETAMINOPHEN TAB 500 MG TAB PO SCH ×2 (18:03→23:45)
[2021-06-17] MEDS: ATORVASTATIN 20 MG TAB PO SCH (21:32)
[2021-06-17] MEDS: QUEtiapine 100 MG TAB PO SCH (21:33)
[2021-06-17] MEDS: DEXAMETHASONE SOD PHOSPHATE 4 MG/ML 1 ML VIAL IVP SCH (21:33)
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
[2021-06-18] MEDS: HYDROmorphone 0.5 MG/0.5 ML SYRINGE IVP PRN ×6 (01:34→20:50)
[2021-06-18] MEDS: ACETAMINOPHEN TAB 500 MG TAB PO SCH ×4 (06:08→22:46)
[2021-06-18] MEDS: CYCLOBENZAPRINE 5 MG TAB PO PRN ×2 (06:08→17:56)
[2021-06-18 06:12] LABS: Basophils % (A) 0 %; Eosinophils % (A) 0 %; Lymphocytes # (A) 0.8 k/uL (1.0-4.8); Lymphocytes % (A) 6 %; MCH 33.6 pg (25.0-35.0); MCHC 34.5 g/dL (31.0-37.0); MCV 97.3 fL (80.0-100.0); Mean Platelet Volume 7.6; Monocytes # (A) 0.8 k/uL (0-1.0); Monocytes % (A) 6 %; Neutrophils # (A) 12.6 k/uL (1.3-7.7); Neutrophils % (A) 88 %; Platelet Count 158 k/uL (150-450); RBC 2.98 m/uL (4.30-5.90); RDW 13.9 % (11.5-15.5); WBC 14.3 k/uL (3.8-10.6)
[2021-06-18 06:27] LABS: African American GFR (CKD) >90 (>60 ml/min/1.73 sqM); Anion Gap 2 mmol/L; Blood Urea Nitrogen 20 mg/dL (9-20); Calcium 8.2 mg/dL (8.4-10.2); Carbon Dioxide 31 mmol/L (22-30); Chloride 99 mmol/L (98-107); Glucose 99 mg/dL (74-99); Non-African American GFR(CKD) >90 (>60 ml/min/1.73 sqM); Potassium 4.3 mmol/L (3.5-5.1); Sodium 132 mmol/L (137-145)
[2021-06-18] MEDS: FLUoxetine HCL 20 MG CAP PO SCH (09:31)
[2021-06-18] MEDS: THIAMINE 100 MG/ML 2 ML VIAL IVP SCH (09:31)
[2021-06-18] MEDS: TAMSULOSIN 0.4 MG CAP.ER.24H PO SCH (09:31)
[2021-06-18] MEDS: HEPARIN SODIUM,PORCINE/PF 5,000 UNIT/0.5 ML SYRINGE SQ SCH ×2 (09:33→20:49)
[2021-06-18] MEDS: PANTOPRAZOLE 40 MG/10 ML VIAL IVP SCH (09:33)
[2021-06-18] MEDS: VITAMIN D3 PO SCH (09:33)
[2021-06-18] MEDS: DEXAMETHASONE SOD PHOSPHATE 4 MG/ML 1 ML VIAL IVP SCH ×3 (09:33→20:50)
[2021-06-18] MEDS: SODIUM CHLORIDE 0.9% 1,000 ML IV SCH (11:21)
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
[2021-06-18] MEDS: CYANOCOBALAMIN 500 MCG TAB PO SCH (12:49)
[2021-06-18] MEDS: FOLIC ACID 1 MG TAB PO SCH (12:49)
[2021-06-18 12:57] VITALS: BMI 19.0
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
[2021-06-18] MEDS: ATORVASTATIN 20 MG TAB PO SCH (20:50)
[2021-06-18] MEDS: QUEtiapine 100 MG TAB PO SCH (20:50)
[2021-06-19] MEDS: HYDROmorphone 0.5 MG/0.5 ML SYRINGE IVP PRN ×2 (01:42→07:47)
[2021-06-19] MEDS: SODIUM CHLORIDE 0.9% 1,000 ML IV SCH (05:21)
[2021-06-19] MEDS: ACETAMINOPHEN TAB 500 MG TAB PO SCH ×3 (05:21→17:50)
[2021-06-19] MEDS: FOLIC ACID 1 MG TAB PO SCH (07:45)
[2021-06-19] MEDS: FLUoxetine HCL 20 MG CAP PO SCH (07:45)
[2021-06-19] MEDS: CYANOCOBALAMIN 500 MCG TAB PO SCH (07:45)
[2021-06-19] MEDS: CYCLOBENZAPRINE 5 MG TAB PO PRN (07:46)
[2021-06-19] MEDS: THIAMINE 100 MG TAB PO SCH (07:46)
[2021-06-19] MEDS: HEPARIN SODIUM,PORCINE/PF 5,000 UNIT/0.5 ML SYRINGE SQ SCH ×2 (07:46→20:40)
[2021-06-19] MEDS: TAMSULOSIN 0.4 MG CAP.ER.24H PO SCH (07:46)
[2021-06-19] MEDS: DEXAMETHASONE SOD PHOSPHATE 4 MG/ML 1 ML VIAL IVP SCH ×2 (07:47→20:39)
[2021-06-19] MEDS: PANTOPRAZOLE 40 MG/10 ML VIAL IVP SCH (07:47)
[2021-06-19] MEDS: VITAMIN D3 PO SCH (07:48)
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
[2021-06-19] MEDS: ATORVASTATIN 20 MG TAB PO SCH (20:39)
[2021-06-19] MEDS: QUEtiapine 100 MG TAB PO SCH (20:40)
[2021-06-20] MEDS: ACETAMINOPHEN TAB 500 MG TAB PO SCH ×2 (01:09→05:53)
[2021-06-20] MEDS: SODIUM CHLORIDE 0.9% 1,000 ML IV SCH (04:46)
[2021-06-20] MEDS: TAMSULOSIN 0.4 MG CAP.ER.24H PO SCH (10:00)
[2021-06-20] MEDS: THIAMINE 100 MG TAB PO SCH (10:00)
[2021-06-20] MEDS: CYANOCOBALAMIN 500 MCG TAB PO SCH (10:00)
[2021-06-20] MEDS: FOLIC ACID 1 MG TAB PO SCH (10:00)
[2021-06-20] MEDS: FLUoxetine HCL 20 MG CAP PO SCH (10:00)
[2021-06-20] MEDS: HEPARIN SODIUM,PORCINE/PF 5,000 UNIT/0.5 ML SYRINGE SQ SCH (10:01)
[2021-06-20] MEDS: DEXAMETHASONE SOD PHOSPHATE 4 MG/ML 1 ML VIAL IVP SCH (10:01)
[2021-06-20] MEDS: VITAMIN D3 PO SCH (10:01)
[2021-06-20] MEDS: PANTOPRAZOLE 40 MG/10 ML VIAL IVP SCH (10:01)
[2021-06-20] MEDS ORDERED: HYDROcodone/APAP 7.5-325MG 1 EACH TAB PO PRN (10:51)
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
[2021-06-20 12:51] VITALS: BP 97/50; PULSE 109; RESP 17; TEMP 97.6
[2021-06-20] MEDS: HYDROcodone/APAP 10-325MG 1 EACH TAB PO PRN ×2 (13:01→19:07)
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
--- NOTE | 2021-06-20 16:31 | P.DS ---
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 Anticipate and plan for the challenges you'll face while quitting. Most people who begin smoking again do so within the first 3 months. You can help yourself make it through by preparing ahead for common challenges, such as nicotine withdrawal and cigarette cravings. R = Remove cigarettes and other tobacco products from your home, car, and work. Throw away all your cigarettes (no emergency pack!), lighters, ashtrays, and matches. Wash your clothes and freshen up anything that smells like smoke. Shampoo your car, clean your drapes and carpet, and steam your furniture. T = Talk to your doctor about getting help to quit. Your doctor can prescribe medication to help with withdrawal and suggest other alternatives. If you can't see a doctor, you can get many products over the counter at your local pharmacy or grocery store, including the nicotine patch, nicotine lozenges, and nicotine gum. Resources for Quitting Smoking: <https://www.[place].gov/documents/[facility]/Quit_Tobacco_Resources_for_patients_313 480_7.pdf> Supplementation: Take recommended dosages of Vitamin D and Calcium to help fortify your bones and help them to heal. See your health maintenance packet for dosages and recommended levels. DVT/VTE prophylaxis: You will be given compression stockings from the hospital. Wear these daily for the first two weeks after surgery. You may take them off at night. You may be prescribed a medication to help thin your blood. Take this as directed. If you are not prescribed this medication, early and frequent ambulation has been shown to be the best prophylaxis to deep vein thrombosis and sequelae related to this event. Discharge Disposition: TRANSFER TO SNF/ECF
[2021-06-21] MEDS ORDERED: DEXAMETHASONE SOD PHOSPHATE 4 MG/ML 1 ML VIAL IVP SCH (09:00)
== END 2021-06-20 21:05 | DRG 453 ==
LOC: EC 09:15 → 5NMEDONC 14:40
PROVIDERS: ADMIT Orthopaedic Surgery; ATTEND Orthopaedic Surgery
PROC: 0PS304Z Reposition Cervical Vertebra with Internal Fixation Device, Open Approach (ICD-10-PCS; 2021-06-11)
PROC: 01N80ZZ Release Thoracic Nerve, Open Approach (ICD-10-PCS; 2021-06-11)
PROC: 0WCC0ZZ Extirpation of Matter from Mediastinum, Open Approach (ICD-10-PCS; 2021-06-11)
PROC: 0RG20A0 Fusion of 2 or more Cervical Vertebral Joints with Interbody Fusion Device, Anterior Approach, Anterior Column, Open Approach (ICD-10-PCS; principal; 2021-06-11 12:25)
PROC: 0SH004Z Insertion of Internal Fixation Device into Lumbar Vertebral Joint, Open Approach (ICD-10-PCS; 2021-06-12)
PROC: 0RH604Z Insertion of Internal Fixation Device into Thoracic Vertebral Joint, Open Approach (ICD-10-PCS; 2021-06-12)
PROC: 0RHA04Z Insertion of Internal Fixation Device into Thoracolumbar Vertebral Joint, Open Approach (ICD-10-PCS; 2021-06-12)
PROC: 0RG2071 Fusion of 2 or more Cervical Vertebral Joints with Autologous Tissue Substitute, Posterior Approach, Posterior Column, Open Approach (ICD-10-PCS; 2021-06-14)
PROC: 0RG4071 Fusion of Cervicothoracic Vertebral Joint with Autologous Tissue Substitute, Posterior Approach, Posterior Column, Open Approach (ICD-10-PCS; 2021-06-14)
PROC: 0RG6071 Fusion of Thoracic Vertebral Joint with Autologous Tissue Substitute, Posterior Approach, Posterior Column, Open Approach (ICD-10-PCS; 2021-06-14)
DX: S12.500A Unspecified displaced fracture of sixth cervical vertebra, initial encounter for closed fracture (principal); G92.8 Other toxic encephalopathy; S22.081A Stable burst fracture of T11-T12 vertebra, initial encounter for closed fracture; S22.39XA Fracture of one rib, unspecified side, initial encounter for closed fracture; E44.1 Mild protein-calorie malnutrition; Z68.1 Body mass index [BMI] 19.9 or less, adult; E87.1 Hypo-osmolality and hyponatremia; F31.30 Bipolar disorder, current episode depressed, mild or moderate severity, unspecified; G95.89 Other specified diseases of spinal cord; J98.11 Atelectasis; S27.892A Contusion of other specified intrathoracic organs, initial encounter; S00.83XA Contusion of other part of head, initial encounter; V47.5XXA Car driver injured in collision with fixed or stationary object in traffic accident, initial encounter; D53.9 Nutritional anemia, unspecified; E78.5 Hyperlipidemia, unspecified; F10.129 Alcohol abuse with intoxication, unspecified; Z20.822 Contact with and (suspected) exposure to COVID-19; I10 Essential (primary) hypertension; I48.91 Unspecified atrial fibrillation; J44.9 Chronic obstructive pulmonary disease, unspecified; M21.371 Foot drop, right foot; M21.372 Foot drop, left foot; M43.13 Spondylolisthesis, cervicothoracic region; M47.816 Spondylosis without myelopathy or radiculopathy, lumbar region; M48.02 Spinal stenosis, cervical region; M54.10 Radiculopathy, site unspecified; N40.0 Benign prostatic hyperplasia without lower urinary tract symptoms; S12.600A Unspecified displaced fracture of seventh cervical vertebra, initial encounter for closed fracture; T42.4X5A Adverse effect of benzodiazepines, initial encounter; Y90.5 Blood alcohol level of 100-119 mg/100 ml; Y92.410 Unspecified street and highway as the place of occurrence of the external cause; Z79.899 Other long term (current) drug therapy; Z87.891 Personal history of nicotine dependence
CPT/HCPCS: 36415; 36600; 70450; 71045; 71260; 72040; 72100; 72125; 72141; 72146; 72148; 72170; 74177; 80048; 80053; 80306; 80320; 81001; 82607; 82746; 82805; 83735; 84145; 84439; 84443; 84484; 85025; 85610; 85730; 86850; 86900; 86901; 86920; 87040; 87086; 87635; 90471; 90715; 93005; 96361; 96374; 96375; 99291

== ENCOUNTER 2021-07-07 00:23 | Inpatient (IN) | payer OTHER ==
[2021-07-07 01:12] LABS: Basophils % (A) 0 %; Eosinophils % (A) 1 %; HCT 29.4 % (39.0-53.0); HGB 9.5 gm/dL (13.0-17.5); Hypochromasia Slight; Lymphocytes # (A) 0.5 k/uL (1.0-4.8); Lymphocytes % (A) 8 %; MCH 31.8 pg (25.0-35.0); MCHC 32.3 g/dL (31.0-37.0); MCV 98.6 fL (80.0-100.0); Macrocytosis Slight; Mean Platelet Volume 7.1; Monocytes # (A) 0.4 k/uL (0-1.0); Monocytes % (A) 5 %; Neutrophils # (A) 5.6 k/uL (1.3-7.7); Neutrophils % (A) 84 %; Poikilocytosis Slight; RBC 2.98 m/uL (4.30-5.90); RDW 15.3 % (11.5-15.5); WBC 6.6 k/uL (3.8-10.6)
[2021-07-07 01:28] LABS: ALT 15 U/L (4-49); AST 23 U/L (17-59); African American GFR (CKD) >90 (>60 ml/min/1.73 sqM); Alkaline Phosphatase 136 U/L (38-126); Anion Gap 8 mmol/L; Blood Urea Nitrogen 8 mg/dL (9-20); Calcium 8.7 mg/dL (8.4-10.2); Carbon Dioxide 26 mmol/L (22-30); Chloride 90 mmol/L (98-107); Glucose 117 mg/dL (74-99); Non-African American GFR(CKD) >90 (>60 ml/min/1.73 sqM); Potassium 3.1 mmol/L (3.5-5.1); Sodium 124 mmol/L (137-145); Total Bilirubin 0.9 mg/dL (0.2-1.3); Total Protein 5.4 g/dL (6.3-8.2)
--- NOTE | 2021-07-07 01:28 | XR ---
EXAMINATION TYPE: XR KUB DATE OF EXAM: 07/07/2021 COMPARISON: NONE HISTORY: Abdominal pain TECHNIQUE: 2 views FINDINGS: There are multiple gas-filled distended loops of large bowel throughout the abdomen. Fecal pattern is fairly normal. There is gas down to the rectum. There is skin chandan and posterior lumbar spine fusion surgery. There is no sign of free air. There is some sclerosis in the femoral head suggestive of a vascular necrosis. This appears unchanged compared to pelvis x-ray of 06/11/2021. IMPRESSION: Large bowel ileus. No free air. Abnormal large bowel pattern is a change compared to 05/29 exam.
[2021-07-07] MEDS ORDERED: ONDANSETRON 4 MG/2 ML VIAL IVP PRN ×2 (01:43→03:36)
[2021-07-07] MEDS ORDERED: MORPHINE SULFATE 4 MG/ML SYRINGE IVP STA (01:43)
[2021-07-07] MEDS ORDERED: MORPHINE SULFATE 4 MG/ML SYRINGE IV PRN (01:43)
[2021-07-07] MEDS ORDERED: ONDANSETRON 4 MG/2 ML VIAL IVP STA (01:43)
--- NOTE | 2021-07-07 01:44 | ED ---
Nausea/Vomiting/Diarrhea HPI - General Chief complaint: Nausea/Vomiting/Diarrhea Stated complaint: Nausea, vomiting Time Seen by Provider: 07/07/21 00:36 Source: patient, EMS, RN notes reviewed, old records reviewed Mode of arrival: EMS Limitations: no limitations - History of Present Illness MD complaint: nausea, vomiting, abdominal pain -: days(s) Description of Vomiting: food contents, watery Associated Abdominal Pain: No Location: diffuse Radiation: none Severity: severe Severity scale (1-10): 9 Quality: cramping, stabbing, aching Consistency: constant Improves with: none Worsens with: none Context: recent surgery/procedure, alcohol abuse Associated Symptoms: loss of appetite, nausea/vomiting, weakness - Related Data Home Medications Medication Instructions Recorded Confirmed Atorvastatin [Lipitor] 20 mg PO HS 09/18/17 06/11/21 Tamsulosin HCl [Flomax] 0.8 mg PO DAILY 09/18/17 06/11/21 FLUoxetine HCL [PROzac] 20 mg PO DAILY 06/11/21 06/11/21 Multivitamins, Thera [Multivitamin 1 tab PO DAILY 06/11/21 06/11/21 (formulary)] Vitamin D3(Unknown Dose) 1 cap PO DAILY 06/11/21 06/11/21 Previous Rx's Medication Instructions Recorded Cyclobenzaprine [Flexeril] 5 mg PO BID PRN #60 tab 06/20/21 Folic Acid 1 mg PO DAILY #30 tab 06/20/21 HYDROcodone/APAP 10-325MG [[place] 1 each PO Q6HR PRN #30 tab 06/20/21 10-325] QUEtiapine [SEROquel] 100 mg PO HS #20 tab 06/20/21 Sennosides-Docusate Sodium 2 each PO DAILY PRN tab 06/20/21 [Senokot-S] Thiamine [Vitamin B-1] 100 mg PO DAILY #30 tab 06/20/21 methylPREDNISolone Dose Pack 4 mg PO DIRECTED #1 packet 06/20/21 [Medrol Dose Pack] Allergies Allergy/AdvReac Type Severity Reaction Status Date / Time No Known Allergies Allergy Verified 06/07/19 09:23 Review of Systems ROS Statement: Those systems with pertinent positive or pertinent negative responses have been documented in the HPI. ROS Other: All systems not noted in ROS Statement are negative. Past Medical History Past Medical History: Hyperlipidemia, Osteoarthritis (OA), Prostate Disorder History of Any Multi-Drug Resistant Organisms: None Reported Past Surgical History: Hernia Repair Additional Past Surgical History / Comment(s): inguinal hernia repair, umbilical hernia repair Past Anesthesia/Blood Transfusion Reactions: No Reported Reaction Past Psychological History: Bipolar, Depression Smoking Status: Former smoker Past Alcohol Use History: Occasional Past Drug Use History: Marijuana - Past Family History Mother Family Medical History: No Reported History General Exam Limitations: no limitations General appearance: alert, lethargic, cachectic Head exam: Present: atraumatic, normocephalic, normal inspection Eye exam: Present: normal appearance, PERRL, EOMI. Absent: scleral icterus, conjunctival injection, periorbital swelling ENT exam: Present: normal exam, mucous membranes moist Neck exam: Present: normal inspection. Absent: tenderness, meningismus, lymphadenopathy Respiratory exam: Present: normal lung sounds bilaterally. Absent: respiratory distress, wheezes, rales, rhonchi, stridor Cardiovascular Exam: Present: regular rate, normal rhythm, normal heart sounds. Absent: systolic murmur, diastolic murmur, rubs, gallop, clicks GI/Abdominal exam: Present: soft, normal bowel sounds. Absent: distended, tenderness, guarding, rebound, rigid Extremities exam: Present: normal inspection, full ROM, normal capillary refill. Absent: tenderness, pedal edema, joint swelling, calf tenderness Back exam: Present: normal inspection Neurological exam: Present: alert, oriented X3, CN II-XII intact Psychiatric exam: Present: normal affect, normal mood Skin exam: Present: warm, dry, intact, normal color. Absent: rash Course Vital Signs 07/07/21 00:29 Temperature 98.2 F Pulse Rate 98 Respiratory 16 Rate Blood Pressure 116/81 O2 Sat by Pulse 96 Oximetry - Reevaluation(s) Reevaluation #1: 07/07/21 03:39 Medical record is reviewed Reevaluation #2: 07/07/21 03:39 Patient has mildly improving symptoms here in the emergency department Reevaluation #3: 07/07/21 03:39 Patient is informed of results and questions answered - Consultations Consultation #1: Spoke with [facility] were agreeable to admit this patient Procedures - Rectal Disimpaction Consent Obtained: verbal consent Indication: fecal impaction Procedural Sedation: No Sedation/Analgesia: opioids, benzodiazepines Technique: manual disimpaction with gloved finger Result: significant stool output (Nonsignificant) Complications: none Patient Tolerated Procedure: well Medical Decision Making - Medical Decision Making 65 male DF for evaluation of generalized pain abdominal pain with nausea and vomiting. Patient does have ileus of the large bowel significant electrolyte derangements. Patient be admitted for alleged replacement and symptom management. - Lab Data Result diagrams: 07/07/21 00:48 07/07/21 00:48 Lab Results 07/07/21 07/07/21 07/07/21 Range/Units 00:47 00:48 00:48 WBC 6.6 (3.8-10.6) k/uL RBC 2.98 L (4.30-5.90) m/uL Hgb 9.5 L (13.0-17.5) gm/dL Hct 29.4 L (39.0-53.0) % MCV 98.6 (80.0-100.0) fL MCH 31.8 (25.0-35.0) pg MCHC 32.3 (31.0-37.0) g/dL RDW 15.3 (11.5-15.5) % Plt Count 374 D (150-450) k/uL MPV 7.1 Neutrophils % 84 % Lymphocytes % 8 % Monocytes % 5 % Eosinophils % 1 % Basophils % 0 % Neutrophils # 5.6 (1.3-7.7) k/uL Lymphocytes # 0.5 L (1.0-4.8) k/uL Monocytes # 0.4 (0-1.0) k/uL Eosinophils # 0.0 (0-0.7) k/uL Basophils # 0.0 (0-0.2) k/uL Hypochromasia Slight Poikilocytosis Slight Macrocytosis Slight Sodium 124 L (137-145) mmol/L Potassium 3.1 L (3.5-5.1) mmol/L Chloride 90 L (98-107) mmol/L Carbon Dioxide 26 (22-30) mmol/L Anion Gap 8 mmol/L BUN 8 L (9-20) mg/dL Creatinine 0.47 L (0.66-1.25) mg/dL Est GFR (CKD-EPI)AfAm >90 (>60 ml/min/1.73 sqM) Est GFR (CKD-EPI)NonAf >90 (>60 ml/min/1.73 sqM) Glucose 117 H (74-99) mg/dL Plasma Lactic Acid Jw 0.9 (0.7-2.0) mmol/L Calcium 8.7 (8.4-10.2) mg/dL Total Bilirubin 0.9 (0.2-1.3) mg/dL AST 23 (17-59) U/L ALT 15 (4-49) U/L Alkaline Phosphatase 136 H (38-126) U/L Total Protein 5.4 L (6.3-8.2) g/dL Albumin 3.0 L (3.5-5.0) g/dL Urine Color Urine Appearance (Clear) Urine pH (5.0-8.0) Ur Specific [place] (1.001-1.035) Urine Protein (Negative) Urine Glucose (UA) (Negative) Urine Ketones (Negative) Urine Blood (Negative) Urine Nitrite (Negative) Urine Bilirubin (Negative) Urine Urobilinogen (<2.0) mg/dL Ur Leukocyte Esterase (Negative) 07/07/21 Range/Units 02:22 WBC (3.8-10.6) k/uL RBC (4.30-5.90) m/uL Hgb (13.0-17.5) gm/dL Hct (39.0-53.0) % MCV (80.0-100.0) fL MCH (25.0-35.0) pg MCHC (31.0-37.0) g/dL RDW (11.5-15.5) % Plt Count (150-450) k/uL MPV Neutrophils % % Lymphocytes % % Monocytes % % Eosinophils % % Basophils % % Neutrophils # (1.3-7.7) k/uL Lymphocytes # (1.0-4.8) k/uL Monocytes # (0-1.0) k/uL Eosinophils # (0-0.7) k/uL Basophils # (0-0.2) k/uL Hypochromasia Poikilocytosis Macrocytosis Sodium (137-145) mmol/L Potassium (3.5-5.1) mmol/L Chloride (98-107) mmol/L Carbon Dioxide (22-30) mmol/L Anion Gap mmol/L BUN (9-20) mg/dL Creatinine (0.66-1.25) mg/dL Est GFR (CKD-EPI)AfAm (>60 ml/min/1.73 sqM) Est GFR (CKD-EPI)NonAf (>60 ml/min/1.73 sqM) Glucose (74-99) mg/dL Plasma Lactic Acid Jw (0.7-2.0) mmol/L Calcium (8.4-10.2) mg/dL Total Bilirubin (0.2-1.3) mg/dL AST (17-59) U/L ALT (4-49) U/L Alkaline Phosphatase (38-126) U/L Total Protein (6.3-8.2) g/dL Albumin (3.5-5.0) g/dL Urine Color Yellow Urine Appearance Clear (Clear) Urine pH 6.5 (5.0-8.0) Ur Specific [place] 1.021 (1.001-1.035) Urine Protein Negative (Negative) Urine Glucose (UA) Negative (Negative) Urine Ketones Trace H (Negative) Urine Blood Negative (Negative) Urine Nitrite Negative (Negative) Urine Bilirubin Negative (Negative) Urine Urobilinogen <2.0 (<2.0) mg/dL Ur Leukocyte Esterase Negative (Negative) - Radiology Data Radiology results: report reviewed (X-ray KUB is positive for large bowel ileus, CT head and pelvis shows same), image reviewed Disposition Clinical Impression: Dehydration, Paralytic ileus of large intestine, Hypokalemia, Hyponatremia, Weakness, Urinary retention Disposition: ADMITTED IP TO THIS [facility] Condition: Fair Is patient prescribed a controlled substance at d/c from ED?: No Referrals: [facility],Clinic [Primary Care Provider] - 1-2 days
[2021-07-07 01:47] LABS: Platelet Count 374 k/uL (150-450)
[2021-07-07] MEDS: POTASSIUM CHLORIDE 10 MEQ in WATER FOR INJECTION 1 100ML.BAG IVPB SCH ×6 (02:00→11:07)
[2021-07-07] MEDS ORDERED: HYDROmorphone 1 MG/ML 1 ML SYRINGE IVP STA (02:05)
[2021-07-07] MEDS ORDERED: SENNOSIDES-DOCUSATE SODIUM 1 EACH TAB PO STA (02:05)
[2021-07-07] MEDS ORDERED: KETOROLAC 15 MG/ML 1 ML VIAL IVP STA (02:05)
[2021-07-07] MEDS ORDERED: DICYCLOMINE 10 MG/ML 2 ML AMP IM STA (02:07)
[2021-07-07] MEDS ORDERED: polyethylene glycoL 3350 17 GM POWD.PACK PO STA (02:07)
--- NOTE | 2021-07-07 02:21 | CT ---
EXAMINATION TYPE: CT abdomen pelvis w con DATE OF EXAM: 07/07/2021 COMPARISON: 06/11/2021 HISTORY: abd pain CT DLP: 852.30 mGycm Automated exposure control for dose reduction was used. CONTRAST: Performed with IV Contrast, patient injected with 100 mL of Isovue 300. Images obtained from the diaphragm to the floor the pelvis with IV contrast. There is mild subsegmental atelectasis at the lung bases. There is no pleural effusion. There is post erior fusion surgery in the thoracolumbar junction. Heart size is normal. There is no pericardial eff usion. Liver shows no focal defect. Spleen is intact. There is no pancreatic mass. The bile is nondilated. G allbladder appears normal. There are multiple dilated gas-filled loops of large bowel throughout the abdomen. There is a dilated rectum with fecal material and measures 8 cm. There is no evidence of free air. There is no ascites. Small bowel not dilated. The lumbar vertebrae have normal alignment. There is some degenerative disc space narrowing throughou t the lumbar spine. There is 50% compression deformity of T12 vertebra. IMPRESSION: Dilated small bowel with gas and fluid levels consistent with ileus and partial obstruction. There is rectal fecal impaction. Large bowel abnormality is new compared to old exam. Posterior fusion surger y is new compared to the old exam. Mild compression fracture of T12 without change.
[2021-07-07] MEDS ORDERED: SODIUM CHLORIDE 0.9% 500 ML 500 ML IV STA (02:29)
[2021-07-07] MEDS ORDERED: SODIUM CHLORIDE 0.9% 1,000 ML IV STA ×2 (02:29→02:53)
[2021-07-07 02:33] LABS: Appearance,Urine Clear (Clear); Bilirubin,Urine Negative (Negative); Blood,Urine Negative (Negative); Color,Urine Yellow; Glucose,Urine (UA) Negative (Negative); Ketones,Urine Trace (Negative); Leukocyte Esterase,Urine Negative (Negative); Nitrite,Urine Negative (Negative); PH, Urine 6.5 (5.0-8.0); Protein,Urine Negative (Negative); Specific Gravity,Urine 1.021 (1.001-1.035); Urobilinogen,Urine <2.0 mg/dL (<2.0)
[2021-07-07] MEDS ORDERED: NALOXONE 0.4 MG/ML 1 ML VIAL IV PRN (03:35)
[2021-07-07] MEDS ORDERED: HYDROmorphone 1 MG/ML 1 ML SYRINGE IVP PRN (03:36)
[2021-07-07] MEDS ORDERED: bisacodyL 10 MG SUPP RECTAL PRN (03:36)
[2021-07-07] MEDS ORDERED: LORazepam 2 MG/ML INJ IV PRN (03:36)
[2021-07-07] MEDS ORDERED: LACTULOSE 20 GM/30 ML CUP PO PRN (03:36)
[2021-07-07] MEDS ORDERED: NA PHOS,M-B/NA PHOS,DI-BA 133 ML ENEMA RECTAL PRN (04:00)
[2021-07-07] MEDS: MAGNESIUM SULFATE-D5W PMX 1 GM in DEXTROSE/WATER 1 100ML.BAG IVPB SCH ×2 (04:10→05:37)
[2021-07-07] MEDS: SODIUM CHLORIDE 0.9% 1,000 ML IV SCH ×3 (04:11→18:55)
[2021-07-07 04:14] LABS: Magnesium 1.7 mg/dL (1.6-2.3); Phosphorus 3.7 mg/dL (2.5-4.5)
[2021-07-07] MEDS ORDERED: NA PHOS,M-B/NA PHOS,DI-BA 133 ML ENEMA RECTAL ONE (05:38)
[2021-07-07] MEDS: MULTIVITAMINS, THERA 1 EACH TAB PO SCH (08:40)
[2021-07-07] MEDS: polyethylene glycoL 3350 17 GM POWD.PACK PO SCH (08:40)
[2021-07-07] MEDS: PANTOPRAZOLE 40 MG/10 ML VIAL IVP SCH (08:40)
[2021-07-07] MEDS: FOLIC ACID 1 MG TAB PO SCH (08:40)
[2021-07-07] MEDS ORDERED: PANTOPRAZOLE 40 MG/10 ML VIAL IV SCH (09:00)
[2021-07-07] MEDS: THIAMINE 100 MG/ML 2 ML VIAL IVP SCH (09:26)
[2021-07-07] MEDS: GLYCERIN ADULT SUPPOSITORY 1 EACH RECTAL SCH (09:57)
[2021-07-07] MEDS ORDERED: MAGNESIUM CITRATE 296 ML BOTTLE PO ONE (10:24)
--- NOTE | 2021-07-07 10:24 | P.GSCN ---
History of Present Illness Consult date: 07/07/21 Reason for Consult: Abdominal pain History of present illness: Patient came to the hospital yesterday from [facility]. Patient underwent recent back surgery in May. Was at rehab. Patient says he was having abdominal bloating with nausea and vomiting. Had a mixture of diarrhea and constipation. CAT scan was performed demonstrating significant fecal impaction with proximal colonic distention. Patient had a disimpaction performed in the ER yesterday. Per the patient a large amount of stool was removed. Since then he has had multiple bowel movements and passed a significant amount of gas. Denies pain currently. No further nausea. Review of Systems The patient denies any acute changes in vision, no dysphagia or odynophagia, no chest pain or shortness of breath, no dysuria or hematuria, no headache, no runny nose, no rectal bleeding or melena, no unexplained weight loss Past Medical History Past Medical History: Hyperlipidemia, Osteoarthritis (OA), Prostate Disorder History of Any Multi-Drug Resistant Organisms: None Reported Past Surgical History: Hernia Repair Additional Past Surgical History / Comment(s): inguinal hernia repair, umbilical hernia repair Past Anesthesia/Blood Transfusion Reactions: No Reported Reaction Past Psychological History: Bipolar, Depression Smoking Status: Former smoker Past Alcohol Use History: Occasional Past Drug Use History: Marijuana - Past Family History Mother Family Medical History: No Reported History Medications and Allergies Home Medications Medication Instructions Recorded Confirmed Type Tamsulosin HCl [Flomax] 0.8 mg PO DAILY 09/18/17 07/07/21 History FLUoxetine HCL [PROzac] 20 mg PO DAILY 06/11/21 07/07/21 History Multivitamins, Thera [Multivitamin 1 tab PO DAILY 06/11/21 07/07/21 History (formulary)] Cyclobenzaprine [Flexeril] 5 mg PO BID PRN #60 tab 06/20/21 07/07/21 Rx Folic Acid 1 mg PO DAILY #30 tab 06/20/21 07/07/21 Rx QUEtiapine [SEROquel] 100 mg PO HS #20 tab 06/20/21 07/07/21 Rx Thiamine [Vitamin B-1] 100 mg PO DAILY #30 tab 06/20/21 07/07/21 Rx Atorvastatin Calcium [Lipitor] 20 mg PO HS 07/07/21 07/07/21 History Cholecalciferol [Vitamin D3 (25 25 mcg PO DAILY 07/07/21 07/07/21 History Mcg = 1000 Iu)] HYDROcodone/APAP 10-325MG [[place] 1 tab PO Q6HR PRN 07/07/21 07/07/21 History 10-325] Sennosides-Docusate Sodium 2 tab PO DAILY PRN 07/07/21 07/07/21 History [Senokot-S] Allergies Allergy/AdvReac Type Severity Reaction Status Date / Time No Known Allergies Allergy Verified 07/07/21 07:27 Surgical - Exam Vital Signs Temp Pulse Resp BP Pulse Ox 98.2 F 98 16 116/81 96 07/07/21 00:29 07/07/21 00:29 07/07/21 00:29 07/07/21 00:29 07/07/21 00:29 Physical exam: General: Well-developed, well-nourished HEENT: Normocephalic, sclerae nonicteric, c-collar in place Abdomen: Nontender, nondistended Extremities: No edema Neuro: Alert and oriented Results - Labs 07/07/21 00:48 07/07/21 00:48 Abnormal Lab Results - Last 24 Hours (Table) 07/07/21 07/07/21 07/07/21 Range/Units 00:48 00:48 02:22 RBC 2.98 L (4.30-5.90) m/uL Hgb 9.5 L (13.0-17.5) gm/dL Hct 29.4 L (39.0-53.0) % Lymphocytes # 0.5 L (1.0-4.8) k/uL Sodium 124 L (137-145) mmol/L Potassium 3.1 L (3.5-5.1) mmol/L Chloride 90 L (98-107) mmol/L BUN 8 L (9-20) mg/dL Creatinine 0.47 L (0.66-1.25) mg/dL Glucose 117 H (74-99) mg/dL Alkaline Phosphatase 136 H (38-126) U/L Total Protein 5.4 L (6.3-8.2) g/dL Albumin 3.0 L (3.5-5.0) g/dL Urine Ketones Trace H (Negative) Diabetes panel 07/07/21 Range/Units 00:48 Sodium 124 L (137-145) mmol/L Potassium 3.1 L (3.5-5.1) mmol/L Chloride 90 L (98-107) mmol/L Carbon Dioxide 26 (22-30) mmol/L BUN 8 L (9-20) mg/dL Creatinine 0.47 L (0.66-1.25) mg/dL Glucose 117 H (74-99) mg/dL Calcium 8.7 (8.4-10.2) mg/dL AST 23 (17-59) U/L ALT 15 (4-49) U/L Alkaline Phosphatase 136 H (38-126) U/L Total Protein 5.4 L (6.3-8.2) g/dL Albumin 3.0 L (3.5-5.0) g/dL Calcium panel 07/07/21 07/07/21 Range/Units 00:48 00:48 Calcium 8.7 (8.4-10.2) mg/dL Phosphorus 3.7 (2.5-4.5) mg/dL Albumin 3.0 L (3.5-5.0) g/dL Pituitary panel 07/07/21 Range/Units 00:48 Sodium 124 L (137-145) mmol/L Potassium 3.1 L (3.5-5.1) mmol/L Chloride 90 L (98-107) mmol/L Carbon Dioxide 26 (22-30) mmol/L BUN 8 L (9-20) mg/dL Creatinine 0.47 L (0.66-1.25) mg/dL Glucose 117 H (74-99) mg/dL Calcium 8.7 (8.4-10.2) mg/dL Adrenal panel 07/07/21 Range/Units 00:48 Sodium 124 L (137-145) mmol/L Potassium 3.1 L (3.5-5.1) mmol/L Chloride 90 L (98-107) mmol/L Carbon Dioxide 26 (22-30) mmol/L BUN 8 L (9-20) mg/dL Creatinine 0.47 L (0.66-1.25) mg/dL Glucose 117 H (74-99) mg/dL Calcium 8.7 (8.4-10.2) mg/dL Total Bilirubin 0.9 (0.2-1.3) mg/dL AST 23 (17-59) U/L ALT 15 (4-49) U/L Alkaline Phosphatase 136 H (38-126) U/L Total Protein 5.4 L (6.3-8.2) g/dL Albumin 3.0 L (3.5-5.0) g/dL Assessment and Plan (1) Paralytic ileus of large intestine Narrative/Plan: 65-year-old male with abdominal pain, nausea vomiting, ileus by CAT scan and fecal impaction. Patient's symptoms have improved since disimpaction in the ER. Resume diet as tolerated. Continue stool softeners and will give one bottle of magnesium citrate today. Will follow. Current Visit: Yes Status: Acute Code(s): K56.0 - PARALYTIC ILEUS SNOMED Code(s): 312513824
[2021-07-07] MEDS: DEXTROSE 5%-0.45% NACL 1,000 ML IV SCH ×3 (13:32→13:34)
[2021-07-07 13:37] LABS: Basophils % (A) 0 %; Eosinophils # (A) 0.1 k/uL (0-0.7); Eosinophils % (A) 1 %; HCT 27.5 % (39.0-53.0); HGB 8.9 gm/dL (13.0-17.5); Hypochromasia Moderate; Lymphocytes # (A) 0.7 k/uL (1.0-4.8); Lymphocytes % (A) 9 %; MCH 32.4 pg (25.0-35.0); MCHC 32.2 g/dL (31.0-37.0); MCV 100.5 fL (80.0-100.0); Macrocytosis Slight; Mean Platelet Volume 6.9; Monocytes # (A) 0.4 k/uL (0-1.0); Monocytes % (A) 5 %; Neutrophils # (A) 6.5 k/uL (1.3-7.7); Neutrophils % (A) 83 %; Platelet Count 371 k/uL (150-450); Poikilocytosis Slight; RBC 2.74 m/uL (4.30-5.90); RDW 15.9 % (11.5-15.5); WBC 7.8 k/uL (3.8-10.6)
[2021-07-07 13:46] LABS: ALT 14 U/L (4-49); AST 21 U/L (17-59); African American GFR (CKD) >90 (>60 ml/min/1.73 sqM); Albumin 2.6 g/dL (3.5-5.0); Albumin/Globulin Ratio 1.1; Alkaline Phosphatase 121 U/L (38-126); Anion Gap 3 mmol/L; Bilirubin,Unconjugated 0.5 mg/dL (0.0-1.1); Blood Urea Nitrogen 9 mg/dL (9-20); Calcium 8.3 mg/dL (8.4-10.2); Carbon Dioxide 31 mmol/L (22-30); Chloride 92 mmol/L (98-107); Globulin 2.4 g/dL; Glucose 97 mg/dL (74-99); Non-African American GFR(CKD) >90 (>60 ml/min/1.73 sqM); Potassium 3.7 mmol/L (3.5-5.1); Sodium 126 mmol/L (137-145); Total Bilirubin 0.8 mg/dL (0.2-1.3)
[2021-07-07] MEDS ORDERED: SENNOSIDES-DOCUSATE SODIUM 1 EACH TAB PO PRN (19:08)
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
[2021-07-07] MEDS: ATORVASTATIN 20 MG TAB PO SCH (20:50)
[2021-07-07] MEDS: QUEtiapine 100 MG TAB PO SCH (20:50)
[2021-07-08] MEDS: DEXTROSE 5%-0.45% NACL 1,000 ML IV SCH ×3 (01:12→20:20)
[2021-07-08] MEDS: SODIUM CHLORIDE 0.9% 1,000 ML IV SCH ×2 (04:15→11:53)
[2021-07-08 07:23] LABS: Basophils % (A) 0 %; Eosinophils # (A) 0.2 k/uL (0-0.7); Eosinophils % (A) 3 %; HCT 27.6 % (39.0-53.0); HGB 8.6 gm/dL (13.0-17.5); Hypochromasia Marked; Lymphocytes # (A) 0.6 k/uL (1.0-4.8); Lymphocytes % (A) 10 %; MCH 31.7 pg (25.0-35.0); MCHC 31.1 g/dL (31.0-37.0); MCV 101.9 fL (80.0-100.0); Macrocytosis Slight; Mean Platelet Volume 7.2; Monocytes # (A) 0.3 k/uL (0-1.0); Monocytes % (A) 6 %; Neutrophils # (A) 4.6 k/uL (1.3-7.7); Neutrophils % (A) 79 %; Platelet Count 381 k/uL (150-450); Poikilocytosis Slight; RBC 2.71 m/uL (4.30-5.90); RDW 15.9 % (11.5-15.5); WBC 5.8 k/uL (3.8-10.6)
[2021-07-08] MEDS: GLYCERIN ADULT SUPPOSITORY 1 EACH RECTAL SCH (07:28)
[2021-07-08] MEDS: polyethylene glycoL 3350 17 GM POWD.PACK PO SCH (07:30)
[2021-07-08] MEDS: MULTIVITAMINS, THERA 1 EACH TAB PO SCH (08:40)
[2021-07-08] MEDS: PANTOPRAZOLE 40 MG/10 ML VIAL IVP SCH (08:40)
[2021-07-08] MEDS: FLUoxetine HCL 20 MG CAP PO SCH (08:40)
[2021-07-08] MEDS: CHOLECALCIFEROL 25 MCG (1000 IU) TABLET PO SCH (08:40)
[2021-07-08] MEDS: FOLIC ACID 1 MG TAB PO SCH (08:40)
[2021-07-08] MEDS: THIAMINE 100 MG/ML 2 ML VIAL IVP SCH (08:40)
[2021-07-08] MEDS: TAMSULOSIN 0.4 MG CAP.ER.24H PO SCH (08:40)
[2021-07-08] MEDS ORDERED: MULTIVITAMINS, THERA 1 EACH TAB PO SCH (09:00)
[2021-07-08] MEDS ORDERED: THIAMINE 100 MG TAB PO SCH (09:00)
[2021-07-08] MEDS ORDERED: FOLIC ACID 1 MG TAB PO SCH (09:00)
[2021-07-08 11:15] LABS: African American GFR (CKD) 144.5 (60.0-200.0); Albumin 2.7 g/dL (3.8-4.9); Albumin/Globulin Ratio 1.5 (1.60-3.17); Anion Gap 10.3 mmol/L (10.00-18.00); BUN/Creat Ratio 11.25 Ratio (12.00-20.00); Blood Urea Nitrogen 4.5 mg/dL (9.0-27.0); Calcium 7.7 mg/dL (8.7-10.3); Carbon Dioxide 26.7 mmol/L (20.0-27.5); Globulin 1.8 g/dL (1.6-3.3); Non-African American GFR(CKD) 124.6 (60.0-200.0); Potassium 3.4 mmol/L (3.5-5.5); Total Bilirubin 0.4 mg/dL (0.30-1.20); Total Protein 4.5 g/dL (6.2-8.2)
[2021-07-08] MEDS: HYDROcodone/APAP 10-325MG 1 EACH TAB PO PRN ×2 (11:53→20:18)
[2021-07-08] MEDS ORDERED: POTASSIUM CHLORIDE ER 20 MEQ TAB.ER PO STA (12:46)
--- NOTE | 2021-07-08 12:49 | P.PN ---
<Emiliana Yun - Last Filed: 07/08/21 12:44> Subjective Progress Note Date: 07/08/21 CHIEF COMPLAINT: Abdominal pain HISTORY OF PRESENT ILLNESS: Patient had evidence of ileus and fecal impaction. Patient was disimpacted in ER. He has had multiple bowel movements. Denies any abdominal pain. Tolerating diet. Denies any nausea or vomiting. Afebrile. WBC 5.8 hemoglobin 8.6 sodium 134 potassium 3.4 creatinine 0.4 PHYSICAL EXAM: VITAL SIGNS: Reviewed. GENERAL: Well-developed in no acute distress. HEENT: No sclera icterus. Extraocular movements grossly intact. Moist buccal mucosa. Head is atraumatic, normocephalic. Has c-collar in place ABDOMEN: Soft. Nondistended. Nontender. NEUROLOGIC: Alert and oriented. Cranial nerves II through XII grossly intact. ASSESSMENT: 1. Paralytic ileus of large intestine 2. Fecal impaction status post disimpaction and ER 3. Hypokalemia PLAN: -Continue good bowel regimen -Continue supportive care -Replaced potassium -Surgical service will sign off. Please call with any questions or concerns. Physician Recreational Director note has been reviewed by physician. Signing provider agrees with the documented findings, assessment, and plan of care. Objective - Vital Signs Vital signs: Vital Signs Temp 98.1 F 07/08/21 11:11 Pulse 98 07/08/21 11:11 Resp 16 07/08/21 11:11 BP 124/73 07/08/21 11:11 Pulse Ox 94 L 07/08/21 11:11 Intake & Output 07/07/21 07/08/21 07/08/21 18:59 06:59 18:59 Intake Total 900 1200 Output Total 450 2000 Balance 450 -800 Weight 55.792 kg Intake: Intake, IV Titration 900 1200 Amount Dextrose 5%-0.45% NaCl 1, 500 1200 000 ml @ 100 mls/hr IV . Q10H [facility] Rx#:[id number] Potassium Chloride 10 meq 400 In Water For Injection 1 100ml.bag @ 100 mls/hr IVPB Q1HR [facility] Rx#: [id number] Output: Urine 450 2000 Other: Voiding Method Indwelling Catheter Indwelling Catheter Indwelling Catheter # Bowel Movements 1 1 2 - Labs CBC & Chem 7: 07/08/21 06:36 07/08/21 06:36 Labs: Abnormal Lab Results - Last 24 Hours (Table) 07/07/21 07/07/21 07/08/21 Range/Units 13:08 13:08 06:36 RBC 2.74 L 2.71 L (4.30-5.90) m/uL Hgb 8.9 L 8.6 L (13.0-17.5) gm/dL Hct 27.5 L 27.6 L (39.0-53.0) % MCV 100.5 H 101.9 H (80.0-100.0) fL RDW 15.9 H 15.9 H (11.5-15.5) % Lymphocytes # 0.7 L 0.6 L (1.0-4.8) k/uL Sodium 126 L (137-145) mmol/L Potassium (3.5-5.5) mmol/L Chloride 92 L (98-107) mmol/L Carbon Dioxide 31 H (22-30) mmol/L BUN (9.0-27.0) mg/dL Creatinine 0.55 L (0.66-1.25) mg/dL BUN/Creatinine Ratio (12.00-20.00) Ratio Glucose (70-110) mg/dL Calcium 8.3 L (8.4-10.2) mg/dL Total Protein 5.0 L (6.3-8.2) g/dL Albumin 2.6 L (3.5-5.0) g/dL Albumin/Globulin Ratio (1.60-3.17) g/dL 07/08/21 Range/Units 06:36 RBC (4.30-5.90) m/uL Hgb (13.0-17.5) gm/dL Hct (39.0-53.0) % MCV (80.0-100.0) fL RDW (11.5-15.5) % Lymphocytes # (1.0-4.8) k/uL Sodium 134 L (137-145) mmol/L Potassium 3.4 L (3.5-5.5) mmol/L Chloride (98-107) mmol/L Carbon Dioxide (22-30) mmol/L BUN 4.5 L (9.0-27.0) mg/dL Creatinine 0.4 L (0.66-1.25) mg/dL BUN/Creatinine Ratio 11.25 L (12.00-20.00) Ratio Glucose 116 H (70-110) mg/dL Calcium 7.7 L (8.4-10.2) mg/dL Total Protein 4.5 L (6.3-8.2) g/dL Albumin 2.7 L (3.5-5.0) g/dL Albumin/Globulin Ratio 1.50 L (1.60-3.17) g/dL <SydcynthiaJosé - Last Filed: 07/08/21 18:46> Subjective I have personally seen and examined the patient, 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 Based on total visit time, I have performed more than 50% of the visit. As above. Normal bowel Function. Tolerating diet. No abdominal pain. We'll sign off. Objective - Vital Signs Vital signs: Vital Signs Temp 98.1 F 07/08/21 11:11 Pulse 98 07/08/21 11:11 Resp 16 07/08/21 11:11 BP 124/73 07/08/21 11:11 Pulse Ox 94 L 07/08/21 11:11 Intake & Output 07/07/21 07/08/21 07/08/21 18:59 06:59 18:59 Intake Total 900 1200 Output Total 450 2000 1100 Balance 450 -800 -1100 Weight 55.792 kg 55.792 kg Intake: Intake, IV Titration 900 1200 Amount Dextrose 5%-0.45% NaCl 1, 500 1200 000 ml @ 100 mls/hr IV . Q10H [facility] Rx#:[id number] Potassium Chloride 10 meq 400 In Water For Injection 1 100ml.bag @ 100 mls/hr IVPB Q1HR [facility] Rx#: [id number] Output: Urine 450 2000 1100 Other: Voiding Method Indwelling Catheter Indwelling Catheter Indwelling Catheter # Bowel Movements 1 1 1 - Labs CBC & Chem 7: 07/08/21 06:36 07/08/21 06:36 Labs: Abnormal Lab Results - Last 24 Hours (Table) 07/08/21 07/08/21 Range/Units 06:36 06:36 RBC 2.71 L (4.30-5.90) m/uL Hgb 8.6 L (13.0-17.5) gm/dL Hct 27.6 L (39.0-53.0) % MCV 101.9 H (80.0-100.0) fL RDW 15.9 H (11.5-15.5) % Lymphocytes # 0.6 L (1.0-4.8) k/uL Sodium 134 L (135-145) mmol/L Potassium 3.4 L (3.5-5.5) mmol/L BUN 4.5 L (9.0-27.0) mg/dL Creatinine 0.4 L (0.6-1.5) mg/dL BUN/Creatinine Ratio 11.25 L (12.00-20.00) Ratio Glucose 116 H (70-110) mg/dL Calcium 7.7 L (8.7-10.3) mg/dL Total Protein 4.5 L (6.2-8.2) g/dL Albumin 2.7 L (3.8-4.9) g/dL Albumin/Globulin Ratio 1.50 L (1.60-3.17) g/dL Assessment and Plan (1) Paralytic ileus of large intestine Current Visit: Yes Status: Acute Code(s): K56.0 - PARALYTIC ILEUS SNOMED Code(s): 637956284
[2021-07-08] MEDS: QUEtiapine 100 MG TAB PO SCH (20:18)
[2021-07-08] MEDS: ATORVASTATIN 20 MG TAB PO SCH (20:18)
--- NOTE | 2021-07-08 20:40 | PN ---
PROGRESS NOTE DATE OF SERVICE: 07/08/2021 This 65-year-old gentleman who was admitted with abdominal symptoms was thought to have abdominal ileus. The patient is being closely monitored. The patient has no chest pain. No palpitations. No fever. The patient also has some fecal impaction. PHYSICAL EXAMINATION: Alert and oriented x3. Pulse is 98, blood pressure 124/70, respirations 16, temperature 98.0, pulse ox 94% on room air. HEENT: Conjunctivae normal. Oral mucosa moist. NECK: No jugular venous distention. No lymph node enlargement. CARDIOVASCULAR: S1, S2, muffled. No S3, no S4, RESPIRATORY: Diminished breath sounds at the bases. A few scattered rhonchi. ABDOMEN: Soft. Mild diffuse distention noted. No mass palpable. LEGS: No edema, no swelling. NERVOUS SYSTEM: No focal deficits. LAB STUDIES: WBC ( ), hemoglobin is 8.2, sodium 130, potassium 3.4. ASSESSMENT: 1. Abdominal ileus. 2. Fecal impaction. 3. Hyponatremia. 4. Hypokalemia. 5. Hypoalbuminemia with severe protein-calorie malnutrition. 6. Multiple electrolyte abnormalities. 7. Hyperlipidemia. 8. Chronic back pain. 9. Benign prostatic hypertrophy. RECOMMENDATIONS AND DISCUSSION: Recommend to continue current management and continue symptomatic treatment. Continue following closely. Continue IV fluids. The patient is on regular diet. Guarded prognosis. Further recommendations to follow. MMMICHAELAL / MILANN: [phone] /
[2021-07-09] MEDS: SODIUM CHLORIDE 0.9% 1,000 ML IV SCH (00:54)
[2021-07-09] MEDS: GLYCERIN ADULT SUPPOSITORY 1 EACH RECTAL SCH (08:13)
[2021-07-09] MEDS: polyethylene glycoL 3350 17 GM POWD.PACK PO SCH (08:13)
[2021-07-09] MEDS: MULTIVITAMINS, THERA 1 EACH TAB PO SCH (08:14)
[2021-07-09] MEDS: TAMSULOSIN 0.4 MG CAP.ER.24H PO SCH (08:14)
[2021-07-09] MEDS: CHOLECALCIFEROL 25 MCG (1000 IU) TABLET PO SCH (08:14)
[2021-07-09] MEDS: FLUoxetine HCL 20 MG CAP PO SCH (08:14)
[2021-07-09] MEDS: FOLIC ACID 1 MG TAB PO SCH (08:14)
[2021-07-09] MEDS: PANTOPRAZOLE 40 MG/10 ML VIAL IVP SCH (08:15)
[2021-07-09] MEDS: THIAMINE 100 MG/ML 2 ML VIAL IVP SCH (08:15)
[2021-07-09] MEDS: HYDROcodone/APAP 10-325MG 1 EACH TAB PO PRN (20:34)
[2021-07-09] MEDS: QUEtiapine 100 MG TAB PO SCH (20:34)
[2021-07-09] MEDS: ATORVASTATIN 20 MG TAB PO SCH (20:34)
[2021-07-09] MEDS: DEXTROSE 5%-0.45% NACL 1,000 ML IV SCH (20:52)
--- NOTE | 2021-07-09 22:49 | P.PN ---
Subjective Progress Note Date: 07/09/21 This is a 65-year-old male who was recently admitted with abdominal pain and thought to have ileus and is being closely monitored. General surgery has evaluated the patient and underwent disempaction. Per nursing staff and patient, multiple bowel movements since and passing gas and denies any abdominal pain. Patient is tolerating diet. Recommend to continue with current bowel regimen. Social work following as patient will be returning to [facility] for continued rehab services. Authorization from insurance is required and has been submitted. PT/ OT evaluated the patient and recommending ECF for continued strength and mobility. Will repeat am labs. Review of systems: Constitutional: No reports of fatigue, fever, or chills Cardiovascular: No reports of chest pain or palpitations Respiratory: No reports of shortness of breath, or cough GI: No reports of nausea, vomiting, or diarrhea, reports passing gas and having bowel movements : No reports of dysuria or retention Neurovascular: reports of generalized weakness All medications have been reviewed Active Medications Hydrocodone Bitart/Acetaminophen (Hydrocodone/Apap 10-325mg 1 Each Tab) 1 each PO Q6HR PRN PRN Reason: Pain Last Admin: 07/08/21 20:18 Dose: 1 each Documented by: Atorvastatin Calcium (Atorvastatin 20 Mg Tab) 20 mg PO HS [facility] Last Admin: 07/08/21 20:18 Dose: 20 mg Documented by: Bisacodyl (Bisacodyl 10 Mg Supp) 10 mg RECTAL ONCE PRN PRN Reason: Constipation Cholecalciferol (Cholecalciferol 25 Mcg (1000 Iu) Tablet) 25 mcg PO DAILY [facility] Last Admin: 07/09/21 08:14 Dose: 25 mcg Documented by: Fluoxetine HCl (Fluoxetine Hcl 20 Mg Cap) 20 mg PO DAILY [facility] Last Admin: 07/09/21 08:14 Dose: 20 mg Documented by: Folic Acid (Folic Acid 1 Mg Tab) 1 mg PO DAILY [facility] Last Admin: 07/09/21 08:14 Dose: 1 mg Documented by: Glycerin (Glycerin Adult Suppository 1 Each) 1 each RECTAL DAILY [facility] Last Admin: 07/09/21 08:13 Dose: Not Given Documented by: Hydromorphone HCl (Hydromorphone 1 Mg/Ml 1 Ml Syringe) 1 mg IVP Q3HR PRN PRN Reason: Severe Pain Dextrose/Sodium Chloride (Dextrose 5%-1/2ns Iv Soln) 1,000 mls @ 40 mls/hr IV .Q24H [facility] Last Admin: 07/08/21 20:20 Dose: 40 mls/hr Documented by: Lactulose (Lactulose 20 Gm/30 Ml Cup) 20 gm PO DAILY PRN PRN Reason: Constipation Lorazepam (Lorazepam 2 Mg/Ml Inj) 0.5 mg IV Q6HR PRN PRN Reason: Anxiety Last Admin: 07/07/21 05:36 Dose: 0.5 mg Documented by: Morphine Sulfate (Morphine Sulfate 4 Mg/Ml Syringe) 4 mg IV Q4HR PRN PRN Reason: Severe Pain Multivitamins (Multivitamins, Thera 1 Each Tab) 1 each PO DAILY [facility] Last Admin: 07/09/21 08:14 Dose: 1 each Documented by: Naloxone HCl (Naloxone 0.4 Mg/Ml 1 Ml Vial) 0.2 mg IV Q2M PRN PRN Reason: Opioid Reversal Ondansetron HCl (Ondansetron 4 Mg/2 Ml Vial) 4 mg IVP Q8HR PRN PRN Reason: Nausea And Vomiting Ondansetron HCl (Ondansetron 4 Mg/2 Ml Vial) 4 mg IVP Q8HR PRN PRN Reason: Nausea And Vomiting Pantoprazole Sodium (Pantoprazole 40 Mg/10 Ml Vial) 40 mg IVP DAILY [facility] Last Admin: 07/09/21 08:15 Dose: 40 mg Documented by: Polyethylene Glycol (Polyethylene Glycol 3350 17 Gm Powd.Pack) 17 gm PO DAILY [facility] Last Admin: 07/09/21 08:13 Dose: Not Given Documented by: Quetiapine Fumarate (Quetiapine 100 Mg Tab) 100 mg PO [facility] Last Admin: 07/08/21 20:18 Dose: 100 mg Documented by: Senna/Docusate Sodium (Sennosides-Docusate Sodium 1 Each Tab) 2 each PO DAILY PRN PRN Reason: Constipation Sodium Biphosphate/Sodium Phosphate (Na Phos,M-B/Na Phos,Di-Ba 133 Ml Enema) 133 ml RECTAL ONCE PRN PRN Reason: Constipation Last Admin: 07/07/21 05:33 Dose: 133 ml Documented by: Tamsulosin HCl (Tamsulosin 0.4 Mg Cap.Er.24h) 0.8 mg PO DAILY [facility] Last Admin: 07/09/21 08:14 Dose: 0.8 mg Documented by: Thiamine HCl (Thiamine 100 Mg/Ml 2 Ml Vial) 100 mg IVP DAILY [facility] Last Admin: 07/09/21 08:15 Dose: 100 mg Documented by: Physical Exam: Gen: This is a 65-year-old male who is awake, alert and oriented 3, well-developed, well-nourished. Temp is 98.4 F, pulse is 97, respirations are 16, blood pressure is 146/84, oxygen saturation is 95% on room air HEENT: Head is atraumatic, normocephalic. Pupils equal, round. Sclerae is anicteric. NECK: Supple. No JVD. No lymphadenopathy. No thyromegaly. LUNGS: Breath sounds diminished with no wheezing or rhonchi noted. No intercostal retractions. HEART: S1, S2 are muffled ABDOMEN: Soft. Bowel sounds are present. No masses. No tenderness. EXTREMITIES: No pedal edema. No calf tenderness. NEUROLOGICAL: Patient is awake, alert and oriented 3, no focal deficits. Assessment: Abdominal ileus Fecal impaction Hyponatremia Hypokalemia Hypoalbuminemia with severe protein calorie malnutrition Multiple electrolyte abnormalities Hyperlipidemia Chronic back pain Benign prostatic hypertrophy Full code Plan: Recommend to continue with current medications and symptomatic management. Patient continues on bowel regimen. General surgery has evaluated the patient. Patient is passing gas and having bowel movements. PT/OT evaluated the patient and social work following as the discharge plan is to return to [facility] for continued PT/OT therapy. No new labs from today and potassium was replaced. Will repeat am labs and continue to monitor closely. Due to multiple complex medical issues prognosis is guarded. Possible discharge in 24 hours. Objective - Vital Signs Vital signs: Vital Signs Temp 98.4 F 07/09/21 11:00 Pulse 97 07/09/21 11:00 Resp 16 07/09/21 11:00 BP 146/84 07/09/21 11:00 Pulse Ox 95 07/09/21 11:00 Intake & Output 07/08/21 07/09/21 07/09/21 18:59 06:59 18:59 Output Total 1100 1300 Balance -1100 -1300 Weight 55.792 kg Output: Urine 1100 1300 Uretheral (Hernandez) 1300 Other: Voiding Method Indwelling Catheter Indwelling Catheter Indwelling Catheter # Bowel Movements 1 1 - Labs CBC & Chem 7: 07/08/21 06:36 07/08/21 06:36
[2021-07-10 07:02] LABS: Basophils % (A) 0 %; Eosinophils # (A) 0.2 k/uL (0-0.7); Eosinophils % (A) 4 %; HCT 29.2 % (39.0-53.0); HGB 9.4 gm/dL (13.0-17.5); Hypochromasia Moderate; Lymphocytes # (A) 0.8 k/uL (1.0-4.8); Lymphocytes % (A) 14 %; MCH 32.4 pg (25.0-35.0); MCHC 32.3 g/dL (31.0-37.0); MCV 100.1 fL (80.0-100.0); Macrocytosis Slight; Monocytes # (A) 0.4 k/uL (0-1.0); Monocytes % (A) 7 %; Neutrophils # (A) 3.8 k/uL (1.3-7.7); Neutrophils % (A) 72 %; Platelet Count 451 k/uL (150-450); Poikilocytosis Slight; RBC 2.92 m/uL (4.30-5.90); RDW 14.9 % (11.5-15.5); WBC 5.2 k/uL (3.8-10.6)
[2021-07-10 07:10] LABS: Chloride 98 mmol/L (98-107)
[2021-07-10 07:12] LABS: African American GFR (CKD) >90 (>60 ml/min/1.73 sqM); Anion Gap 3 mmol/L; Blood Urea Nitrogen 4 mg/dL (9-20); Calcium 8.4 mg/dL (8.4-10.2); Carbon Dioxide 29 mmol/L (22-30); Glucose 91 mg/dL (74-99); Non-African American GFR(CKD) >90 (>60 ml/min/1.73 sqM); Sodium 130 mmol/L (137-145)
[2021-07-10 07:38] LABS: Potassium 3.6 mmol/L (3.5-5.1)
[2021-07-10] MEDS: PANTOPRAZOLE 40 MG/10 ML VIAL IVP SCH (07:59)
[2021-07-10] MEDS: TAMSULOSIN 0.4 MG CAP.ER.24H PO SCH (07:59)
[2021-07-10] MEDS: FOLIC ACID 1 MG TAB PO SCH (07:59)
[2021-07-10] MEDS: FLUoxetine HCL 20 MG CAP PO SCH (07:59)
[2021-07-10] MEDS: CHOLECALCIFEROL 25 MCG (1000 IU) TABLET PO SCH (07:59)
[2021-07-10] MEDS: MULTIVITAMINS, THERA 1 EACH TAB PO SCH (07:59)
[2021-07-10] MEDS: HYDROcodone/APAP 10-325MG 1 EACH TAB PO PRN ×2 (08:00→19:59)
[2021-07-10] MEDS: polyethylene glycoL 3350 17 GM POWD.PACK PO SCH (08:00)
[2021-07-10] MEDS: THIAMINE 100 MG/ML 2 ML VIAL IVP SCH (13:21)
[2021-07-10] MEDS: GLYCERIN ADULT SUPPOSITORY 1 EACH RECTAL SCH (16:58)
[2021-07-10] MEDS: ATORVASTATIN 20 MG TAB PO SCH (19:59)
[2021-07-10] MEDS: QUEtiapine 100 MG TAB PO SCH (19:59)
[2021-07-10] MEDS: DEXTROSE 5%-0.45% NACL 1,000 ML IV SCH (20:02)
[2021-07-11 04:18] VITALS: RESP 16
--- NOTE | 2021-07-11 05:42 | P.PN ---
Subjective Progress Note Date: 07/10/21 This is a 65-year-old male who was recently admitted with abdominal pain and thought to have ileus and is being closely monitored. General surgery has evaluated the patient and underwent disempaction. Per nursing staff and patient, multiple bowel movements since and passing gas and denies any abdominal pain. Patient is tolerating diet. Recommend to continue with current bowel regimen. Social work following as patient will be returning to [facility] for continued rehab services. Authorization from insurance is required and has been submitted. PT/ OT evaluated the patient and recommending ECF for continued strength and mobility. Will repeat am labs. 07/10/2021 Patient is seen in follow-up this morning and reports to tolerating diet and continues with bowel movements. Patient denies any abdominal pain. Patient is working with PT/OT daily. Social work following as patient is going to [facility] once discharged. Awaiting insurance authorization. Patient denies chest pain or shortness of breath. Patient continues with neck brace with orthopedics following as needed. Patient eager to return to rehab. Paitent is afebrile. Labs: White blood count is 5.2, hemoglobin is 9.4, platelets are 451, sodium is 130, potassium 3.6, BUN is 4, creatinine 0.51, calcium 8.4, magnesium 2.0 Review of systems: Constitutional: No reports of fatigue, fever, or chills Cardiovascular: No reports of chest pain or palpitations Respiratory: No reports of shortness of breath, or cough GI: No reports of nausea, vomiting, or diarrhea, reports passing gas and having bowel movements : No reports of dysuria or retention Neurovascular: reports of generalized weakness All medications have been reviewed Active Medications Hydrocodone Bitart/Acetaminophen (Hydrocodone/Apap 10-325mg 1 Each Tab) 1 each PO Q6HR PRN PRN Reason: Pain Last Admin: 07/10/21 08:00 Dose: 1 each Documented by: Atorvastatin Calcium (Atorvastatin 20 Mg Tab) 20 mg PO HS [facility] Last Admin: 07/09/21 20:34 Dose: 20 mg Documented by: Bisacodyl (Bisacodyl 10 Mg Supp) 10 mg RECTAL ONCE PRN PRN Reason: Constipation Cholecalciferol (Cholecalciferol 25 Mcg (1000 Iu) Tablet) 25 mcg PO DAILY [facility] Last Admin: 07/10/21 07:59 Dose: 25 mcg Documented by: Fluoxetine HCl (Fluoxetine Hcl 20 Mg Cap) 20 mg PO DAILY [facility] Last Admin: 07/10/21 07:59 Dose: 20 mg Documented by: Folic Acid (Folic Acid 1 Mg Tab) 1 mg PO DAILY [facility] Last Admin: 07/10/21 07:59 Dose: 1 mg Documented by: Glycerin (Glycerin Adult Suppository 1 Each) 1 each RECTAL DAILY [facility] Last Admin: 07/09/21 08:13 Dose: Not Given Documented by: Hydromorphone HCl (Hydromorphone 1 Mg/Ml 1 Ml Syringe) 1 mg IVP Q3HR PRN PRN Reason: Severe Pain Dextrose/Sodium Chloride (Dextrose 5%-1/2ns Iv Soln) 1,000 mls @ 40 mls/hr IV .Q24H [facility] Last Admin: 07/09/21 20:52 Dose: 40 mls/hr Documented by: Lactulose (Lactulose 20 Gm/30 Ml Cup) 20 gm PO DAILY PRN PRN Reason: Constipation Lorazepam (Lorazepam 2 Mg/Ml Inj) 0.5 mg IV Q6HR PRN PRN Reason: Anxiety Last Admin: 07/07/21 05:36 Dose: 0.5 mg Documented by: Morphine Sulfate (Morphine Sulfate 4 Mg/Ml Syringe) 4 mg IV Q4HR PRN PRN Reason: Severe Pain Multivitamins (Multivitamins, Thera 1 Each Tab) 1 each PO DAILY [facility] Last Admin: 07/10/21 07:59 Dose: 1 each Documented by: Naloxone HCl (Naloxone 0.4 Mg/Ml 1 Ml Vial) 0.2 mg IV Q2M PRN PRN Reason: Opioid Reversal Ondansetron HCl (Ondansetron 4 Mg/2 Ml Vial) 4 mg IVP Q8HR PRN PRN Reason: Nausea And Vomiting Ondansetron HCl (Ondansetron 4 Mg/2 Ml Vial) 4 mg IVP Q8HR PRN PRN Reason: Nausea And Vomiting Pantoprazole Sodium (Pantoprazole 40 Mg/10 Ml Vial) 40 mg IVP DAILY [facility] Last Admin: 07/10/21 07:59 Dose: 40 mg Documented by: Polyethylene Glycol (Polyethylene Glycol 3350 17 Gm Powd.Pack) 17 gm PO DAILY [facility] Last Admin: 07/10/21 08:00 Dose: 17 gm Documented by: Quetiapine Fumarate (Quetiapine 100 Mg Tab) 100 mg PO HS [facility] Last Admin: 07/09/21 20:34 Dose: 100 mg Documented by: Senna/Docusate Sodium (Sennosides-Docusate Sodium 1 Each Tab) 2 each PO DAILY PRN PRN Reason: Constipation Sodium Biphosphate/Sodium Phosphate (Na Phos,M-B/Na Phos,Di-Ba 133 Ml Enema) 133 ml RECTAL ONCE PRN PRN Reason: Constipation Last Admin: 07/07/21 05:33 Dose: 133 ml Documented by: Tamsulosin HCl (Tamsulosin 0.4 Mg Cap.Er.24h) 0.8 mg PO DAILY [facility] Last Admin: 07/10/21 07:59 Dose: 0.8 mg Documented by: Thiamine HCl (Thiamine 100 Mg/Ml 2 Ml Vial) 100 mg IVP DAILY [facility] Last Admin: 07/10/21 13:21 Dose: 100 mg Documented by: Physical Exam: Gen: This is a 65-year-old male who is awake, alert and oriented 3, well- developed, well-nourished. Temp is 97.8 F, pulse is 100, respirations are 16, blood pressure is 119/73, oxygen saturation is 95% on room air HEENT: Head is atraumatic, normocephalic. Pupils equal, round. Sclerae is anicteric. Neck brace noted NECK: Supple. No JVD. No lymphadenopathy. No thyromegaly. LUNGS: Breath sounds diminished with no wheezing or rhonchi noted. No i ntercostal retractions. HEART: S1, S2 are muffled ABDOMEN: Soft. Bowel sounds are present. No masses. No tenderness. EXTREMITIES: No pedal edema. No calf tenderness. NEUROLOGICAL: Patient is awake, alert and oriented 3, no focal deficits. Assessment: Abdominal ileus Fecal impaction, status post disempaction Hyponatremia Hypokalemia Hypoalbuminemia with severe protein calorie malnutrition Multiple electrolyte abnormalities Hyperlipidemia Chronic back pain Benign prostatic hypertrophy Full code Plan: Recommend to continue with current medications and symptomatic management. Patient continues on bowel regimen. General surgery following. Patient is passing gas and having bowel movements. PT/OT following the patient and social work following as the discharge plan is to return to [facility] for continued PT/OT therapy. Will continue to monitor closely. Due to multiple complex medic al issues prognosis is guarded. Possible discharge in 24 hours. Objective - Vital Signs Vital signs: Vital Signs Temp 98.7 F 07/10/21 12:04 Pulse 57 L 07/10/21 12:04 Resp 18 07/10/21 12:04 BP 110/67 07/10/21 12:04 Pulse Ox 100 07/10/21 12:04 Intake & Output 07/09/21 07/10/21 07/10/21 18:59 06:59 18:59 Intake Total 400 320 Output Total 1000 1500 Balance -600 -1180 Intake: Intake, IV Titration 400 320 Amount Dextrose 5%-0.45% NaCl 1, 400 320 000 ml @ 40 mls/hr IV . Q24H [facility] Rx#:[id number] Output: Urine 1000 1500 Uretheral (Hernandez) 1500 Other: Voiding Method Indwelling Catheter Indwelling Catheter Indwelling Catheter # Bowel Movements 1 1 - Labs CBC & Chem 7: 07/10/21 06:13 07/10/21 06:13 Labs: Abnormal Lab Results - Last 24 Hours (Table) 07/10/21 07/10/21 Range/Units 06:13 06:13 RBC 2.92 L (4.30-5.90) m/uL Hgb 9.4 L (13.0-17.5) gm/dL Hct 29.2 L (39.0-53.0) % MCV 100.1 H (80.0-100.0) fL Plt Count 451 H (150-450) k/uL Lymphocytes # 0.8 L (1.0-4.8) k/uL Sodium 130 L (137-145) mmol/L BUN 4 L (9-20) mg/dL Creatinine 0.51 L (0.66-1.25) mg/dL
[2021-07-11] MEDS: THIAMINE 100 MG/ML 2 ML VIAL IVP SCH (08:22)
[2021-07-11] MEDS: TAMSULOSIN 0.4 MG CAP.ER.24H PO SCH (08:22)
[2021-07-11] MEDS: MULTIVITAMINS, THERA 1 EACH TAB PO SCH (08:22)
[2021-07-11] MEDS: FOLIC ACID 1 MG TAB PO SCH (08:22)
[2021-07-11] MEDS: polyethylene glycoL 3350 17 GM POWD.PACK PO SCH (08:22)
[2021-07-11] MEDS: CHOLECALCIFEROL 25 MCG (1000 IU) TABLET PO SCH (08:22)
[2021-07-11] MEDS: FLUoxetine HCL 20 MG CAP PO SCH (08:22)
[2021-07-11] MEDS: PANTOPRAZOLE 40 MG/10 ML VIAL IVP SCH (08:24)
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
[2021-07-11 12:35] VITALS: BP 124/84; PULSE 107; TEMP 97.7
--- NOTE | 2021-07-11 12:59 | P.DS ---
Providers Date of admission: 07/07/21 03:35 Expected date of discharge: 07/11/21 Attending physician: Jhonathan Pitts Consults: 07/11/21 08:44 Consult Physician Routine Consulting Provider: Camden Bedoya Consult Reason/Comments: post-op eval Do you want consulting provider notified?: Yes Primary care physician: [facility] Hospital Course: Final diagnosis Abdominal ileus Fecal impaction, status post disempaction Hyponatremia Hypokalemia, improved Hypoalbuminemia with severe protein calorie malnutrition Multiple electrolyte abnormalities Hyperlipidemia Chronic back pain Benign prostatic hypertrophy Full code Discharge disposition Patient is being discharged in a stable condition with guarded prognosis to [facility] for continued PT/OT therapy. Patient will follow-up with Dr. Loco in the outpatient setting upon discharge. Patient also follow-up with orthopedics in the next 10 days. Total time taken is greater than 35 minutes. Hospital course This is a 65-year-old male who was recently admitted with abdominal pain with possible ileus and had fecal impaction and general surgery evaluated the patient and disimpacted and patient is having bowel movements with no difficulties. Recommend continue with bowel regimen and current diet. Patient also continues with neck brace for orthopedics and will follow-up in the next 10 days outpatient. Orthopedics evaluated the patient and removed chandan from surgery previously. Recommend repeat labs of CBC and BMP in the outpatient setting. Currently no reports of chest pain, shortness of breath, or palpitations. Patient is afebrile. No reports of nausea or vomiting and patient is tolerating diet. Patient will be going to [facility] today. On exam vital signs are stable. Cardio S1, S2 are muffled. Respiratory system shows diminished breath sounds at the bases with no wheezing or rhonchi noted. Abdomen is soft and nontender. Nervous system shows diffuse weakness. Please refer to medication reconciliation sheet for a list of medications. Patient Condition at Discharge: Fair Plan - Discharge Summary Discharge Rx Participant: No New Discharge Prescriptions: New Lactulose [Cephulac] 20 gm PO DAILY PRN ml PRN Reason: Constipation Glycerin Adult Suppository 1 each RECTAL DAILY supp bisacodyL [Dulcolax] 10 mg RECTAL ONCE PRN supp PRN Reason: Constipation Na Phos,M-B/Na Phos,Di-Ba [Fleet Adult] 133 ml RECTAL ONCE PRN PRN Reason: Constipation polyethylene glycoL 3350 [Miralax] 17 gm PO DAILY packet Continue Tamsulosin HCl [Flomax] 0.8 mg PO DAILY Multivitamins, Thera [Multivitamin (formulary)] 1 tab PO DAILY FLUoxetine HCL [PROzac] 20 mg PO DAILY Cyclobenzaprine [Flexeril] 5 mg PO BID PRN #60 tab PRN Reason: Muscle Spasm Folic Acid 1 mg PO DAILY #30 tab Atorvastatin Calcium [Lipitor] 20 mg PO HS Cholecalciferol [Vitamin D3 (25 Mcg = 1000 Iu)] 25 mcg PO DAILY Thiamine [Vitamin B-1] 100 mg PO DAILY #30 tab QUEtiapine [SEROquel] 100 mg PO HS #20 tab Sennosides-Docusate Sodium [Senokot-S] 2 tab PO DAILY PRN PRN Reason: Constipation Changed HYDROcodone/APAP 10-325MG [Hammond 10-325] 1 tab PO Q6HR PRN #6 tab PRN Reason: Pain Discharge Medication List Tamsulosin HCl [Flomax] 0.8 mg PO DAILY 09/18/17 [History] FLUoxetine HCL [PROzac] 20 mg PO DAILY 06/11/21 [History] Multivitamins, Thera [Multivitamin (formulary)] 1 tab PO DAILY 06/11/21 [History] Cyclobenzaprine [Flexeril] 5 mg PO BID PRN #60 tab 06/20/21 [Rx] Folic Acid 1 mg PO DAILY #30 tab 06/20/21 [Rx] QUEtiapine [SEROquel] 100 mg PO HS #20 tab 06/20/21 [Rx] Thiamine [Vitamin B-1] 100 mg PO DAILY #30 tab 06/20/21 [Rx] Atorvastatin Calcium [Lipitor] 20 mg PO HS 07/07/21 [History] Cholecalciferol [Vitamin D3 (25 Mcg = 1000 Iu)] 25 mcg PO DAILY 07/07/21 [History] Sennosides-Docusate Sodium [Senokot-S] 2 tab PO DAILY PRN 07/07/21 [History] Glycerin Adult Suppository 1 each RECTAL DAILY supp 07/11/21 [Rx] HYDROcodone/APAP 10-325MG [Hammond 10-325] 1 tab PO Q6HR PRN #6 tab 07/11/21 [Rx] Lactulose [Cephulac] 20 gm PO DAILY PRN ml 07/11/21 [Rx] Na Phos,M-B/Na Phos,Di-Ba [Fleet Adult] 133 ml RECTAL ONCE PRN 07/11/21 [Rx] bisacodyL [Dulcolax] 10 mg RECTAL ONCE PRN supp 07/11/21 [Rx] polyethylene glycoL 3350 [Miralax] 17 gm PO DAILY packet 07/11/21 [Rx] Follow up Appointment(s)/Referral(s): Camden Bedoya DO [Doctor of Osteopathic Medicine] - 10 Days [facility] [Primary Care Provider] - 1-2 days Ambulatory/Diagnostic Orders: Complete Blood Count w/diff [LAB.AMB] Time Frame: 3 Days, Location: None [facility] Activity/Diet/Wound Care/Special Instructions: Patient is going to [place] Activity as tolerated Continue current diet Continue bowel regimen Follow-up orthopedics outpatient as discussed Recommend repeat labs of CBC BMP in 2-3 days Spine Discharge and Recovery Instructions Dressing: Utilize basic gauze bandage while patient is utilizing the rigid collar Showering: Okay to shower directly over the incision with soap and water Follow up: Please confirm a follow up appointment with your surgeon 3 weeks post operatively. Please make an appointment to follow up with your PCP in 1-2 weeks after surgery for evaluation 3 phase, 3-week plan POST OP WEEKS 1-3 1. Lifting/carrying/pushing/pulling limited to less than 5 pounds. 2. Do not sit for longer than 15 minutes at one time. Get up and walk around. Prolonged sitting is NOT advised. If you lay down, see if you can tolerate laying down on you front (belly side) 3. Walk for periods of 15 minutes = 1 mile but no longer; do it multiple times times each day. 4. Ice your low back after activity. POST OP WEEKS 3-6 1. Lifting limited to less than 20 pounds. 2. Do not sit for longer than 30 minutes at a time. Frequently change positions. Use a sit-to stand workstation or take frequent breaks from sitting if you have returned to work. 3. Walk for 30 minutes each day. If possible, do these three or more times a day POST OP WEEKS 6+ At your 6-week appointment we will give you a physical therapy referral to focus on a core stabilization and strengthening program. You should also work on leg & buttock strengthening, hamstring & quadriceps stretching, and continue a low impact aerobic activity program such as swimming, walking, or riding a stationary bicycle. During the initial 6 weeks after your surgery, you are at the highest risk of re-injuring your spine. You should generally avoid BLTs (bending, lifting and twisting combination motions) and follow the above guidelines to reduce the chance of reinjury. You can anticipate post op appointments in our office at approximately 3 weeks and 6 weeks after your surgery. INCISION CARE: If your incision is not draining you do NOT need to cover it with a dressing. Keep your incision clean, dry and intact. In most cases, we apply skin glue, chandan or sutures to the incision at the time of surgery. This will be like a crust or have the appearance of a scab and will fall off in time on its own. The stitches or chandan need to be removed at 3 weeks post op appointment. You may begin to shower 3 days after surgery (this allows the glue to vaughan well). However, please avoid scrubbing the incis ion site or peeling off any of the skin glue. This will ensure optimal healing of your incision. Also, during this time avoid soaking the incision area in water - this includes swimming pools, hot tubs or baths. No ointments, lotions or oils on the incision until your surgeon allows. Leave chandan, sutures or glue in place. Neurological dysfunction that comes on suddenly can also be a sign of a stroke. Below some common symptoms of a stroke are listed: B - balance difficulty such as sudden onset walking or leaning to one side - NEW E - eye problem such as sudden double vision or trouble seeing on one side - NEW F - Facial weakness or numbness on one side - NEW A - Arm or leg weakness or numbness on one side - NEW S - Slurred speech or difficulty with word finding - NEW T - Time is BRAIN! Call 911 as soon as you recognize these symptoms Diet: Consume a regular diet rich in vegetables and lean protein such as chicken or fish. You should consume in a ratio of approximately 20% fats|40% carbohydrates|40%protein. Vegetables, sweet potatoes, brown rice or quinoa are examples of good carbohydrates. Chips, white bread, cookies and sweets/sugar are examples of bad carbohydrates. Limit your bad carbs, go wild with good carbs. "Life's Simple 7" Guidelines as per [employer] These will help you reclaim your life after surgery and sheet metal worker helper in your recovery, keeping in mind your restrictions. (1) Get Active. Physical activity can help people lose weight, control high blood pressure and cholesterol, feel emotionally better, and sleep better. (2) Control Cholesterol. Avoid a diet high in saturated fat, trans fat, & cholesterol. Limit whole milk & cream, ice cream, butter, egg yolks, processed meats (like sausage and hot dogs), and fatty meats. Choose healthy foods that are low in saturated fat, trans fat and cholesterol which include: Fruits and vegetables, fiber rich grain products (like whole grain pasta and brown rice), lean meat such as chicken, fish, nuts, seeds, and legumes. (3) Eat Better. Eat small portions. Shop at the grocery with a list and do not stray from it. Tips for a healthy diet include: Limit sodium intake to less than 1500mg daily, avoid prepackaged, processed, and fast foods, choose a diet rich in fruits, vegetables, and whole grain, high fiber foods, and limit saturated & cholesterol in your diet. (4) Manage Blood Pressure. If you have high blood pressure, you should have a cuff at home so that you can check your blood pressure regularly. Be sure you have a good cuff. An arm one is generally better than a wrist one. Bring the cuff to a doctor's appointment to validate that the measurements that your cuff are taking are accurate. Take your blood pressure twice daily when you are sitting down and relaxing. Record the numbers in a log and bring this log with you to your doctors' appointments. (5) Lose Weight if your BMI is above 25. A healthy BMI is between 19-25. To calculate Your BMI, you may use a Standard BMI Calculator on the NIH BMI website: <www.nhlbi.nih.gov/guidelines/obesity/BMI/bmicalc.htm>. Weigh oneself daily. If you are overweight, set a goal to lose weight. A pound a week loss if needed is a good target. (6) Reduce Blood Sugar. Limit foods and liquids with "added sugars." (Added sugars include sucrose, fructose, glucose, maltose, dextrose, high fructose corn syrup, corn syrup, concentrated fruit juice and honey). (7) Stop Smoking. If you smoke, quitting smoking is one of the best things that you can do for your health. Smoking increases your risk of heart attack, stroke, and peripheral vascular disease, which is a build-up of plaque in your arteries. Please discard all the cigarettes and lighters in your house. Have a plan for what you will do when you have the urge to smoke. Direct and second- hand smoke shortens your life as well as the lives of your family, friends and others around you. For your health and the health of those around you, please consider quitting! Proper Bending Body Mechanics: Maintain a wide stance with one foot slightly in front of the other. Keep your back straight. Bend utilizing the strength in your hips and knees. Do not bend at the waist. Maintain the lifted object at your waist-level close to your body. Avoid lifting weight that causes immediately pain or pain anywhere in the body afterwards. Smoking/Nicotine If there was ever one thing that you could do to increase your overall health, decrease your risk of cardiovascular problems by about 39% the second you make the choice, it is to STOP SMOKING. Your body's most instant gratification is the second you stop smoking. We have all heard the studies, read the articles but it is true, smoking is extremely bad for your overall health, and moreover it is detrimental to your bone health. Nicotine, IN ANY FORM, kills bone cells, prevents your body from healing fractures, and significantly prolongs healing after surgery. In spine surgery specifically, it increases your risk of not healing your bones to create a fusion and increases your risk of having a revision surgery due to this up to 60%. I know it is hard. I know it feels impossible. But there are ways. Take control of your life. We are here to help you through it. And when you are ready, ask us and we can direct you to help if you desire. Use the START Plan to Quit Smoking (please visit the [employer]org website liste d below for more information): S = Set a quit date. Choose a date within the next 2 weeks, so you have enough time to prepare without losing your motivation to quit. If you mainly smoke at work, quit on the weekend, so you have a few days to adjust to the change. T = Tell family, friends, and co-workers that you plan to quit. Let your friends and family in on your plan to quit smoking and tell them you need their support and encouragement to stop. Look for a quit jayashree who wants to stop smoking as well. You can help each other get through the rough times. A = Anticipate and plan for the challenges you'll face while quitting. Most people who begin smoking again do so within the first 3 months. You can help yourself make it through by preparing ahead for common challenges, such as nicotine withdrawal and cigarette cravings. R = Remove cigarettes and other tobacco products from your home, car, and work. Throw away all your cigarettes (no emergency pack!), lighters, ashtrays, and matches. Wash your clothes and freshen up anything that smells like smoke. Shampoo your car, clean your drapes and carpet, and steam your furniture. T = Talk to your doctor about getting help to quit. Your doctor can prescribe medication to help with withdrawal and suggest other alternatives. If you can't see a doctor, you can get many products over the counter at your local pharmacy or grocery store, including the nicotine patch, nicotine lozenges, and nicotine gum. Resources for Quitting Smoking: <https://www.[place].gov/documents/[facility]/Quit_Tobacco_Resources_ for_patients_313480_7.pdf> Supplementation: Take recommended dosages of Vitamin D and Calcium to help fortify your bones and help them to heal. See your health maintenance packet for dosages and recommended levels. DVT/VTE prophylaxis: You will be given compression stockings from the hospital. Wear these daily for the first two weeks after surgery. You may take them off at night. You may be prescribed a medication to help thin your blood. Take this as directed. If you are not prescribed this medication, early and frequent ambulation has been shown to be the best prophylaxis to deep vein thrombosis and sequelae related to this event. Discharge Disposition: TRANSFER TO SNF/ECF
--- NOTE | 2021-07-11 14:16 | XR ---
EXAMINATION TYPE: XR cervical spine 3 views, XR thoracic spine 3 views DATE OF EXAM: 07/11/2021 Comparison: Cervical spine CT 06/17/2021 Clinical History: 65-year-old male s/p cervical fusion Findings: CERVICAL SPINE: No predental space widening or prevertebral soft tissue swelling. Post surgical changes C5-C7 ACDF. Posterior cervical fusion from C4 through T2 levels. Laminectomies at C4-C7 levels better demonstrated on the patient's recent CT. Lateral osseous fusion changes. Some bone graft material along the dorsal midline opposite C4 and C5 also noted. Grade 1 anterolisthesis at the fused C7-T1 level better demonstrated on CT. Otherwise, no malalignmen t seen. Normal odontoid view. Reversal of the normal cervical lordosis in the upper cervical spine. THORACIC SPINE: Bridging anterior endplate spondylosis midthoracic spine. Postsurgical change of T10-L2 posterior lum bar fusion. Vertebroplasty change T10 and L2 vertebral bodies. Alignment appears maintained and verte bral body heights are preserved. Underpenetration of the lower thoracic and upper lumbar vertebral rosangela dies limiting assessment. IMPRESSION: 1. Status post C5-C7 ACDF and C4-T2 posterior cervical fusion. C4-C7 laminectomies. Lateral osseous f usion bone graft material not fully consolidated at this time. Some bone graft material along the kristen dianna midline soft tissues opposite C4 and C5 noted. 2. Fixed grade 1 anterolisthesis at the C7-T1 level better demonstrated on the patient's recent CT. O therwise, no malalignment. 3. Bridging anterior endplate spondylosis midthoracic spine. Postsurgical change T10-L2 posterior lum bar fusion and a couple levels of vertebroplasty. 4. Some limitation in visualization of the lower thoracic and upper lumbar vertebral bodies due to un derpenetration. No definite vertebral compression collapse.
[2021-07-11] MEDS: GLYCERIN ADULT SUPPOSITORY 1 EACH RECTAL SCH (15:33)
[2021-07-11 15:57] VITALS: BMI 24.5
== END 2021-07-11 19:10 | DRG 388 ==
LOC: EC 00:23 → 5NMEDONC 03:35
PROVIDERS: ADMIT Hospitalist; ATTEND Hospitalist
DX: K56.0 Paralytic ileus (principal); E43 Unspecified severe protein-calorie malnutrition; E87.1 Hypo-osmolality and hyponatremia; K56.41 Fecal impaction; E78.5 Hyperlipidemia, unspecified; E86.0 Dehydration; E87.6 Hypokalemia; F32.A Depression, unspecified; G89.29 Other chronic pain; N40.1 Benign prostatic hyperplasia with lower urinary tract symptoms; R33.8 Other retention of urine; Z79.899 Other long term (current) drug therapy; Z87.891 Personal history of nicotine dependence; Z20.822 Contact with and (suspected) exposure to COVID-19
CPT/HCPCS: 36415; 72040; 72070; 74018; 74177; 80048; 80053; 80076; 81003; 83605; 83690; 83735; 84100; 85025; 87324; 87635

== ENCOUNTER 2023-04-22 09:46 | Day surgery (SDC) | payer OTHER ==
[2023-04-20 11:24] VITALS: BMI 20.3
[2023-04-22] MEDS ORDERED: SODIUM CHLORIDE 0.9% 1,000 ML IV ONE (10:06)
[2023-04-22] MEDS ORDERED: ALPRAZolam 0.25 MG TAB PO PRN (10:10)
[2023-04-22] MEDS ORDERED: ALPRAZolam 0.5 MG TAB PO PRN (10:10)
[2023-04-22] MEDS ORDERED: ASPIRIN 325 MG TAB PO STA (10:10)
[2023-04-22] MEDS ORDERED: ATORVASTATIN 80 MG TAB PO STA (10:10)
[2023-04-22] MEDS ORDERED: NITROGLYCERIN SL TABS 0.4 MG TAB SUBLINGUAL PRN (10:10)
[2023-04-22] MEDS ORDERED: SODIUM CHLORIDE 0.9% 1,000 ML in EMPTY BAG 1 BAG IV SCH (10:15)
[2023-04-22 10:21] LABS: Basophils % (A) 0 %; Eosinophils # (A) 0.2 k/uL (0-0.7); Eosinophils % (A) 2 %; HCT 42.2 % (39.0-53.0); HGB 14.6 gm/dL (13.0-17.5); Lymphocytes # (A) 1.3 k/uL (1.0-4.8); Lymphocytes % (A) 11 %; MCH 33.4 pg (25.0-35.0); MCHC 34.7 g/dL (31.0-37.0); MCV 96.4 fL (80.0-100.0); Mean Platelet Volume 6.9; Monocytes # (A) 0.5 k/uL (0-1.0); Monocytes % (A) 4 %; Neutrophils # (A) 10.1 k/uL (1.3-7.7); Neutrophils % (A) 83 %; Platelet Count 280 k/uL (150-450); RBC 4.37 m/uL (4.30-5.90); RDW 14.5 % (11.5-15.5); WBC 12.3 k/uL (3.8-10.6)
[2023-04-22 10:22] VITALS: TEMP 98
[2023-04-22 10:54] LABS: African American GFR (CKD) >90 (>60 ml/min/1.73 sqM); Anion Gap 7 mmol/L; Blood Urea Nitrogen 14 mg/dL (9-20); Calcium 8.7 mg/dL (8.4-10.2); Carbon Dioxide 34 mmol/L (22-30); Chloride 89 mmol/L (98-107); Glucose 106 mg/dL (74-99); Non-African American GFR(CKD) >90 (>60 ml/min/1.73 sqM); Potassium 3.4 mmol/L (3.5-5.1); Sodium 130 mmol/L (137-145)
[2023-04-22] MEDS ORDERED: HEPARIN SODIUM 1,000 UN/ML (10ML VL) ONE (11:01)
[2023-04-22] MEDS ORDERED: LIDOCAINE 1% INJ 10MG/ML (20 ML MDV) ONE (11:01)
[2023-04-22] MEDS ORDERED: VERAPAMIL 2.5 MG/ML 2 ML AMP ONE (11:02)
[2023-04-22] MEDS ORDERED: fentaNYL (PF) 50 MCG/ML 2 ML AMP ONE (11:02)
[2023-04-22] MEDS ORDERED: MIDAZOLAM 2 MG/2 ML VIAL IVP ONE (11:14)
[2023-04-22] MEDS ORDERED: fentaNYL (PF) 50 MCG/1 ML VIAL IVP ONE (11:14)
[2023-04-22] MEDS ORDERED: LIDOCAINE 1% INJ 10MG/ML (5 ML VIAL-PF) SQ ONE (11:18)
[2023-04-22] MEDS ORDERED: VERAPAMIL SYRINGE (5 MG/10 ML) INTRAARTER ONE (11:19)
[2023-04-22] MEDS ORDERED: HEPARIN SODIUM 1,000 UN/ML (10ML VL) IV ONE (11:20)
--- NOTE | 2023-04-22 11:29 | P.CARDCATH ---
Description of Procedure: PROCEDURES PERFORMED: Left heart catheterization, bilateral coronary angiography, ultrasound guided arterial access INDICATION: Abnormal stress test CONSENT:I have discussed the risks, benefits and alternative therapies for the above-mentioned procedure and for both sedation/analgesia as well as necessary blood product administration, if indicated, as they pertain to this patient. The patient has indicated understanding and acceptance of the risks and procedures discussed. PROCEDURE: After the risks, benefits and alternatives of the above mentioned procedure explained in detail with the patient, informed consent was obtained. Patient was taken to the catheterization lab and prepped and draped in usual fashion. Ultrasound guidance was used to assess for arterial access. 1% lidocaine was used to anesthetize the right radial artery. A 6-Georgian sheath was placed in the right radial artery using modified Seldinger technique and ultrasound guidance. Left coronary angiography was performed with a 5-Georgian JL 3.5 catheter and right coronary angiography was performed with a 5-Georgian JR5 catheter in various views. A 5-Georgian FR5 catheter was inserted into the left ventricle and pressure measurements were obtained. The right radial sheath was removed and a TR band was placed with hemostasis achieved. The patient to lerated the procedure well. Patient was transported back to the post catheterization holding area in stable condition. Conscious Sedation: Patient was monitored under the direct supervision of myself for conscious sedation using Versed and fentanyl for a total duration of 10 minutes HEMODYNAMICS: Aorta: 108/64 LV: 100/6, LVEDP 11 SELECTIVE CORONARY ARTERIOGRAPHY: LEFT MAIN: The left main is a large caliber vessel which bifurcates into the LAD and circumflex. There is no significant stenosis. LEFT ANTERIOR DESCENDING CORONARY ARTERY: LAD is a large caliber vessel which wraps around to the apex. There is no significant stenosis. LEFT CIRCUMFLEX CORONARY ARTERY: Left circumflex is a moderate caliber vessel without significant stenosis. RIGHT CORONARY ARTERY: The right coronary artery is a large caliber vessel which gives off a PDA and PLV branch and is the dominant vessel. There is no significant stenosis. FINAL IMPRESSION: 1. Normal coronary arteries as described above. 2. Normal left sided filling pressures PLAN: 1. Aggressive risk factor modification per most recent ACC/AHA guidelines. 2. Follow-up in the office in 1-2 weeks.
[2023-04-22] MEDS ORDERED: IOPAMIDOL-370 100ML BTL IVP ONE (11:33)
[2023-04-22 12:48] VITALS: RESP 16
[2023-04-22 14:53] VITALS: BP 118/72; PULSE 74
[2023-04-23] MEDS ORDERED: HEPARIN SODIUM,PORCINE (1 ML) 2,500 UNIT in SODIUM CHLORIDE 0.9% 250 ML IRRIGATION PRN (07:00)
[2023-04-23] MEDS ORDERED: HEPARIN SODIUM,PORCINE 10,000 UNIT in SODIUM CHLORIDE 0.9% 1,000 ML IRRIGATION PRN (07:00)
== END 2023-04-22 15:10 | disposition home or self-care (01) ==
LOC: CATHCVL 09:46
PROVIDERS: ATTEND Internal Medicine
DX: R94.39 Abnormal result of other cardiovascular function study (principal); E78.5 Hyperlipidemia, unspecified; F41.9 Anxiety disorder, unspecified; F31.9 Bipolar disorder, unspecified; Z79.01 Long term (current) use of anticoagulants; Z79.899 Other long term (current) drug therapy
CPT/HCPCS: 93458; 76937; 80048; 85025; 99152; C1769; C1894; J2250; J2001; J1644; Q9967; J3010

== ENCOUNTER → 2023-12-17 | Outpatient (CLI) | payer MEDICARE ==
[2023-12-17 12:47] LABS: African American GFR (CKD) >90 (>60 ml/min/1.73 sqM); Blood Urea Nitrogen 14 mg/dL (9-20); Non-African American GFR(CKD) >90 (>60 ml/min/1.73 sqM)
--- NOTE | 2023-12-19 21:29 | CT ---
EXAMINATION TYPE: CT angio abdomen pelvis DATE OF EXAM: 12/17/2023 COMPARISON: 07/07/2021 INDICATION: abnormal weight loss 40-50lbs in the past 3-4 months DLP: 476.90 mGycm, Automated exposure control for dose reduction was used. CONTRAST: 100ml mL of Isovue 370. Study performed without Oral Contrast TECHNIQUE: Axial images were obtained from above the diaphragm to the pubic rami in the axial plane a t 5 mm thick sections. Reconstructed images are reviewed on the computer in the coronal plane. Thre e-D reconstructed images through the arterial system are performed. FINDINGS: Limited CT sections are obtained the lung bases. There is a 1.1 cm density in the posterior left saud g base sulcus.. CT ABDOMEN: Liver: Normal Spleen: Normal Pancreas: Normal Adrenal glands: The adrenal glands are normal. Gallbladder: Some small gallbladder stones may be within the fundus the gallbladder. Kidneys: No masses are evident. No hydronephrosis is present. No cysts are present. No renal stone s are evident. Aorta: Vascular calcification is within the aorta. Following contrast administration and evaluation of the arterial phase the celiac axis and superior m esenteric artery origins appear normal. Renal artery origins appear patent. Minimal calcifications at the right renal artery origin. No aneurysmal dilatation or dissection is evident. Inferior mesenteri c artery appears normal. There is mild prominence of the right common iliac artery measuring 1.6 cm. Left common iliac artery appears normal. Internal and external iliac vessels are patent. Visualized c ommon femoral arteries are normal. Profunda femoris and superficial femoral arteries within the field of view appear normal. No focal stenoses are identified Inferior vena cava: Normal. CT PELVIS: Loops of bowel within the abdomen and pelvis are normal. The study is without oral contrast limit ing bowel evaluation. Appendix: Normal as visualized. Urinary bladder: Normal. Genitourinary structures: Prostate is very prominent contains calcification. Osseous structures: No suspicious lytic or sclerotic lesions. Fixation pedicle screws and rods within the rectal lumbar junction IMPRESSION: 1. Atheromatous calcified plaquing without significant flow-limiting stenosis through the abdominal aorta to the proximal lower extremity arterial system. 2. Very prominent prostate. 3. Cholelithiasis. 4. There may be a 1 cm nodular density in the posterior left lung sulcus. Consider follow-up PET/CT.
== END | disposition home or self-care (01) ==
LOC: RADCTMAIN 11:46
PROVIDERS: ATTEND Family Medicine
DX: R63.4 Abnormal weight loss (principal); K80.20 Calculus of gallbladder without cholecystitis without obstruction; I70.90 Unspecified atherosclerosis
CPT/HCPCS: 82565; 84520; 36415; 74174; Q9967

== ENCOUNTER → 2024-01-14 | Outpatient (CLI) | payer MEDICARE ==
--- NOTE | 2024-01-16 09:33 | PE ---
EXAMINATION TYPE: PET CT fusion skull to thigh DATE OF EXAM: 01/14/2024 CLINICAL INDICATION:Male, 68 years old with history of R91.1 PULMONARY NODULE; TECHNIQUE: Following the intravenous administration of 11.8 mCi of F-18 FDG, whole body images are performed from the skull base to the midthigh. Images are reviewed on the computer in the coronal, a xial, and sagittal planes. Reconstructed rotating images are created on independent workstation and reviewed on the computer. A non-contrast CT is performed in conjunction with the PET scan. Glucose level 129 mg/dL CT DLP: 2:30 mGycm, Automated exposure control for dose reduction was used. COMPARISON: CT 12/17/2023, PET/CT None, MRI: None FINDINGS: Mediastinal SUV mean is 1.6. Hepatic parenchyma SUV mean is 2.0. SKULL BASE AND NECK: No suspicious radiotracer activity. CHEST, MEDIASTINUM, AND HILAR REGION: No suspicious radiotracer activity. ABDOMEN AND PELVIS: No suspicious radiotracer activity. MUSCULOSKELETAL STRUCTURES: No suspicious radiotracer activity. Multiple left-sided rib fractures wit h mild uptake involving left ribs 5, 6, 7. OTHER CT: Centrilobular emphysema changes throughout the lungs. Fixation hardware throughout the spin e grossly intact. Atherosclerosis of the arterial vasculature. 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 Left inguinal hernia repair changes. Prostatomegaly. IMPRESSION: 1. No suspicious FDG activity, area of concern in the left lung base is most compatible with atelect asis. 2. Subacute fractures of left ribs 5 through 7
== END | disposition home or self-care (01) ==
LOC: RADPETMAIN 07:16
PROVIDERS: ATTEND Family Medicine
DX: R91.1 Solitary pulmonary nodule (principal); S22.42XA Multiple fractures of ribs, left side, initial encounter for closed fracture; R93.5 Abnormal findings on diagnostic imaging of other abdominal regions, including retroperitoneum
CPT/HCPCS: 78815; A9552

== ENCOUNTER → 2024-06-15 | Outpatient (CLI) | payer OTHER ==
[2024-06-15 09:42] LABS: African American GFR (CKD) >90 (>60 ml/min/1.73 sqM); Blood Urea Nitrogen 10 mg/dL (9-20); Non-African American GFR(CKD) >90 (>60 ml/min/1.73 sqM)
--- NOTE | 2024-06-15 11:47 | CT ---
EXAMINATION TYPE: CT ChestAbdPelvis wo/w con CT DLP: 1024.10 mGycm, Automated exposure control for dose reduction was used. DATE OF EXAM: 06/15/2024 11:32 AM COMPARISON: PET CT 01/14/2024, CT abdomen and pelvis 12/17/2023, CT chest abdomen pelvis 06/11/2021 CLINICAL INDICATION:Male, 68 years old with history of R63.4 ABNORMAL WEIGHT LOSS; PHH, weightloss an d weakness Technique: Multiple axial images of the chest, abdomen, and pelvis were obtained before and after the intravenous administration of 100 mL Isovue-300. Oral contrast was administered. Two-dimensional cor onal and sagittal reconstructions were obtained. Findings: CHEST: LUNGS/ PLEURA: No pleural effusion, pneumothorax, or focal consolidation. Moderate centrilobular emph ysematous changes. Minimal bilateral lower lobe subsegmental atelectasis. No suspicious pulmonary nod ule or mass. AIRWAY: Patent and unremarkable.. HEART: Size within normal limits.Trace pericardial effusion. Small coronary calcification. MEDIASTINUM: No gross evidence of adenopathy. VASCULATURE: No aortic aneurysm. Mild atherosclerotic calcification of the aorta and its branches. MUSCULOSKELETAL: No acute osseous abnormalities. Partial visualization of the anterior cervical fusio n hardware. Upper thoracic posterior fusion hardware. Lower thoracic lumbar fixation hardware involvi ng T10-T11 and L1-L2. Superior endplate compression deformity involving the T12 vertebral body again. Vertebral cement involving the T10 and T12 vertebral bodies. Multilevel degenerative disc disease. SOFT TISSUES/LYMPH NODES: Unremarkable. LOWER NECK: No significant findings. ABDOMEN: ABDOMEN LIVER: Unremarkable GALLBLADDER AND BILE DUCTS: Unremarkable. PANCREAS: Unremarkable. SPLEEN: Unremarkable. ADRENAL GLANDS: Unremarkable. KIDNEYS AND URETERS: No evidence of hydronephrosis or renal calculus. The kidneys enhance symmetrical ly. Contrast is demonstrated within both collecting systems on the delayed phase. PELVIS BLADDER: Unremarkable REPRODUCTIVE: Coarse calcifications of the prostate gland are identified. Prostate gland is enlarged measuring 5.0 cm in transverse dimension. ABDOMEN & PELVIS STOMACH AND BOWEL: Stomach and duodenum are unremarkable. Enteric contrast reaches the ileocecal junc tion. Rectal fecaloma measured 8.8 cm without surrounding inflammatory changes. No evidence of bowel obstruction. PERITONEUM: No evidence of pneumoperitoneum or free fluid. VASCULATURE: Mild atherosclerotic calcifications are present throughout the abdominal aorta and its b ranches. No abdominal aortic aneurysm. Pelvic phleboliths. Similar curvilinear high density notified within the IVC which may represent cement from vertebral augmentation. MUSCULOSKELETAL: No acute osseous abnormalities. Posterior fixation hardware involving T10-T11 and L1 -L2. Superior endplate compression deformity involving the T12 vertebral body again. Vertebral cement involving the T10 and T12 vertebral bodies. Multilevel degenerative disc disease. Avascular necrosis of the bilateral femoral heads without subchondral collapse. LYMPH NODES: No evidence for lymphadenopathy. SOFT TISSUE/ABDOMINAL WALL: Postsurgical changes from left inguinal hernia repair with mesh. IMPRESSION: 1. No CT evidence for malignancy within the chest, abdomen or pelvis. 2. Rectal fecaloma without surrounding inflammatory changes to suggest stercoral colitis. 3. Moderate COPD changes. 4. Postsurgical changes of the visualized spine redemonstrated. [facility], , 06/15/2024 11:45 AM
== END | disposition home or self-care (01) ==
LOC: RADCTMAIN 08:56
PROVIDERS: ATTEND Family Medicine
DX: J44.9 Chronic obstructive pulmonary disease, unspecified (principal); R63.4 Abnormal weight loss; Z98.890 Other specified postprocedural states
CPT/HCPCS: 82565; 84520; 71270; 74178; 36415; Q9967

== ENCOUNTER 2024-09-02 11:51 | Emergency (ER) | payer OTHER, MEDICARE ==
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
[2024-09-02 12:59] LABS: Basophils % (A) 0 %; Eosinophils # (A) 0.1 k/uL (0-0.7); Eosinophils % (A) 1 %; HCT 43.3 % (39.0-53.0); Lymphocytes # (A) 0.8 k/uL (1.0-4.8); Lymphocytes % (A) 9 %; MCH 31.3 pg (25.0-35.0); MCHC 32.5 g/dL (31.0-37.0); MCV 96.4 fL (80.0-100.0); Mean Platelet Volume 6.6; Monocytes # (A) 0.5 k/uL (0-1.0); Monocytes % (A) 5 %; Neutrophils # (A) 7.3 k/uL (1.3-7.7); Neutrophils % (A) 84 %; Platelet Count 288 k/uL (150-450); RBC 4.49 m/uL (4.30-5.90); RDW 12.7 % (11.5-15.5); WBC 8.8 k/uL (3.8-10.6)
--- NOTE | 2024-09-02 12:59 | XR ---
EXAMINATION TYPE: XR chest 2V DATE OF EXAM: 09/02/2024 12:55 PM COMPARISON: CT chest abdomen and pelvis 06/15/2024, chest radiograph 06/13/2021. TECHNIQUE: XR chest 2V Frontal and lateral views of the chest. CLINICAL INDICATION:Male, 69 years old with history of cough; FINDINGS: Lungs/Pleura: There is flattening of the diaphragm with increased lucency of the lungs. No evidence o f pneumothorax, pleural effusion or focal consolidation. Chronic senescent parenchymal change. Pulmonary vascularity: Unremarkable. Heart/mediastinum: Cardiomediastinal silhouette is unremarkable. Musculoskeletal: No acute osseous pathology. Postsurgical changes from anterior and posterior cervica l fusion with thoracolumbar fixation. 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 IMPRESSION: 1. No acute cardiopulmonary disease process. 2. COPD changes. [facility], , 09/02/2024 12:57 PM
[2024-09-02 13:01] LABS: Influenza A Not Detected (Not Detectd); Influenza B Not Detected (Not Detectd); RSV Not Detected (Not Detectd)
[2024-09-02 13:14] LABS: INR 0.9 (<1.2); Partial Thromboplastin Time 25.1 sec (22.0-30.0); Prothrombin Time 10.3 sec (10.0-12.5)
[2024-09-02 13:17] LABS: ALT 23 U/L (4-49); AST 23 U/L (17-59); African American GFR (CKD) >90 (>60 ml/min/1.73 sqM); Albumin 3.8 g/dL (3.5-5.0); Alkaline Phosphatase 97 U/L (38-126); Anion Gap 6 mmol/L; Blood Urea Nitrogen 5 mg/dL (9-20); Calcium 9.1 mg/dL (8.4-10.2); Carbon Dioxide 31 mmol/L (22-30); Chloride 90 mmol/L (98-107); Glucose 110 mg/dL (74-99); Magnesium 1.8 mg/dL (1.6-2.3); Non-African American GFR(CKD) >90 (>60 ml/min/1.73 sqM); Potassium 3.8 mmol/L (3.5-5.1); Sodium 127 mmol/L (137-145); Total Bilirubin 0.6 mg/dL (0.2-1.3); Total Protein 5.9 g/dL (6.3-8.2)
[2024-09-02] MEDS: SODIUM CHLORIDE 0.9% 1,000 ML IV ONE (13:25)
[2024-09-02 13:26] LABS: NT-Pro-B-Type Natriuretic Pept 40 pg/mL
[2024-09-02] MEDS: IPRATROPIUM-ALBUTEROL 3 ML NEB INHALATION STA (13:30)
[2024-09-02 13:55] LABS: Appearance,Urine Clear (Clear); Bilirubin,Urine Negative (Negative); Blood,Urine Small (Negative); Color,Urine Yellow; Glucose,Urine (UA) Negative (Negative); Ketones,Urine Negative (Negative); Leukocyte Esterase,Urine Negative (Negative); Mucus,Urine Many /hpf; Nitrite,Urine Negative (Negative); Protein,Urine Negative (Negative); RBC,Urine 14 /hpf (0-5); Specific Gravity,Urine 1.014 (1.001-1.035); Squamous Epithelial Cell,Urine <1 /hpf (0-4); Urobilinogen,Urine <2.0 mg/dL (<2.0); WBC,Urine 1 /hpf (0-5)
[2024-09-02] MEDS: ONDANSETRON 4 MG/2 ML VIAL IVP STA (14:01)
[2024-09-02 14:32] VITALS: PULSE 87; RESP 18
[2024-09-02 16:12] VITALS: BP 139/87; TEMP 98
== END 2024-09-02 16:12 | disposition home or self-care (01) ==
LOC: EC 11:51
DX: R06.02 Shortness of breath (principal); E87.1 Hypo-osmolality and hyponatremia; F41.9 Anxiety disorder, unspecified; J44.89 Other specified chronic obstructive pulmonary disease; Z87.891 Personal history of nicotine dependence
CPT/HCPCS: 36415; 71046; 80053; 81001; 83605; 83735; 83880; 84484; 85025; 85379; 85610; 85730; 87636; 93005; 94640; 96360; 96361; 99285

== ENCOUNTER 2024-09-07 13:02 | Emergency (ER) | payer OTHER, MEDICARE ==
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
[2024-09-07 13:56] LABS: Basophils % (A) 0 %; Eosinophils # (A) 0.1 k/uL (0-0.7); Eosinophils % (A) 1 %; HCT 45.7 % (39.0-53.0); HGB 14.9 gm/dL (13.0-17.5); Lymphocytes # (A) 0.7 k/uL (1.0-4.8); Lymphocytes % (A) 8 %; MCH 31.6 pg (25.0-35.0); MCHC 32.5 g/dL (31.0-37.0); MCV 97.1 fL (80.0-100.0); Mean Platelet Volume 6.6; Monocytes # (A) 0.5 k/uL (0-1.0); Monocytes % (A) 6 %; Neutrophils # (A) 7.4 k/uL (1.3-7.7); Neutrophils % (A) 84 %; Platelet Count 259 k/uL (150-450); RDW 12.7 % (11.5-15.5); WBC 8.8 k/uL (3.8-10.6)
[2024-09-07 14:02] LABS: ALT 20 U/L (4-49); AST 23 U/L (17-59); African American GFR (CKD) >90 (>60 ml/min/1.73 sqM); Albumin 4.2 g/dL (3.5-5.0); Alkaline Phosphatase 113 U/L (38-126); Anion Gap 8 mmol/L; Blood Urea Nitrogen 11 mg/dL (9-20); Calcium 9.3 mg/dL (8.4-10.2); Carbon Dioxide 32 mmol/L (22-30); Chloride 88 mmol/L (98-107); Glucose 126 mg/dL (74-99); Magnesium 1.8 mg/dL (1.6-2.3); Non-African American GFR(CKD) >90 (>60 ml/min/1.73 sqM); Potassium 3.9 mmol/L (3.5-5.1); Sodium 128 mmol/L (137-145); Total Bilirubin 0.9 mg/dL (0.2-1.3); Total Protein 6.6 g/dL (6.3-8.2)
[2024-09-07] MEDS: SODIUM CHLORIDE 0.9% 1,000 ML IV ONE (14:18)
[2024-09-07 15:20] VITALS: BP 138/91; PULSE 91; RESP 18; TEMP 98.1
== END 2024-09-07 15:20 | disposition home or self-care (01) ==
LOC: EC 13:02
DX: E87.1 Hypo-osmolality and hyponatremia (principal); Z87.891 Personal history of nicotine dependence
CPT/HCPCS: 36415; 80053; 83735; 85025; 96360; 99284

== ENCOUNTER 2024-09-25 18:08 | Inpatient (IN) | payer OTHER, MEDICARE ==
[2024-09-25] MEDS: SODIUM CHLORIDE 0.9% 1,000 ML IV ONE (18:32)
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
[2024-09-25 18:37] LABS: Basophils % (A) 0 %; Eosinophils % (A) 0 %; HCT 41.4 % (39.0-53.0); HGB 13.8 gm/dL (13.0-17.5); Lymphocytes # (A) 0.5 k/uL (1.0-4.8); Lymphocytes % (A) 10 %; MCH 31.3 pg (25.0-35.0); MCHC 33.3 g/dL (31.0-37.0); MCV 93.9 fL (80.0-100.0); Mean Platelet Volume 6.9; Monocytes # (A) 0.4 k/uL (0-1.0); Monocytes % (A) 8 %; Neutrophils # (A) 4.5 k/uL (1.3-7.7); Neutrophils % (A) 81 %; Platelet Count 210 k/uL (150-450); RDW 13.2 % (11.5-15.5); WBC 5.6 k/uL (3.8-10.6)
[2024-09-25 18:52] LABS: ALT 39 U/L (4-49); AST 39 U/L (17-59); African American GFR (CKD) >90 (>60 ml/min/1.73 sqM); Albumin 3.3 g/dL (3.5-5.0); Alkaline Phosphatase 117 U/L (38-126); Anion Gap 6 mmol/L; Blood Urea Nitrogen 8 mg/dL (9-20); Calcium 8.3 mg/dL (8.4-10.2); Carbon Dioxide 32 mmol/L (22-30); Chloride 92 mmol/L (98-107); Glucose 112 mg/dL (74-99); Magnesium 1.6 mg/dL (1.6-2.3); Non-African American GFR(CKD) >90 (>60 ml/min/1.73 sqM); Potassium 3.1 mmol/L (3.5-5.1); Sodium 130 mmol/L (137-145); Total Bilirubin 0.6 mg/dL (0.2-1.3); Total Protein 5.6 g/dL (6.3-8.2)
[2024-09-25 18:56] LABS: INR 0.9 (<1.2); Partial Thromboplastin Time 26.3 sec (22.0-30.0); Prothrombin Time 10.4 sec (10.0-12.5)
[2024-09-25 18:59] LABS: NT-Pro-B-Type Natriuretic Pept 153 pg/mL
--- NOTE | 2024-09-25 19:10 | XR ---
EXAMINATION TYPE: XR chest 2V DATE OF EXAM: 09/25/2024 7:07 PM COMPARISON: 09/02/24 CLINICAL INDICATION: Male, 69 years old with history of difficulty breathing: Shortness of breath TECHNIQUE: XR chest 2V views of the chest are obtained. FINDINGS: Scattered senescent parenchymal changes noted. Hyperinflation compatible with COPD. No evidence for infiltrate. No evidence for atelectasis. Heart size is stable. Mediastinal structures are stable and grossly unremarkable. No evidence for hilar prominence. Degenerative changes dorsal spine. IMPRESSION: 1. No evidence for acute pulmonary disease. [facility], , 09/25/2024 7:08 PM
[2024-09-25] MEDS: LORazepam 2 MG/ML INJ IV STA (19:19)
[2024-09-25] MEDS: POTASSIUM CHLORIDE ER 20 MEQ TAB.ER PO STA (19:19)
[2024-09-25] MEDS: POTASSIUM CHLORIDE 20 MEQ in WATER FOR INJECTION 1 100ML.BAG IVPB STA (19:24)
--- NOTE | 2024-09-25 19:52 | CT ---
EXAMINATION TYPE: CT neck chest w con DATE OF EXAM: 09/25/2024 7:40 PM COMPARISON: None. CLINICAL INDICATION: Male, 69 years old with history of Dyspnea, hypoxia, difficulty breathing, TECHNIQUE: Axial CT was performed with sagittal and coronal reformats. IV CONTRAST: with IV Contrast, patient injected with 100 ml mL of Isovue 300. (None if empty) CT DLP: 469.6 mGycm, Automated exposure control for dose reduction was used. FINDINGS: AIRWAY: The supraglottic, glottic, and subglottic portions of the airway appear patent and free of mass. SALIVARY GLANDS: The submandibular and parotid glands are free of mass or inflammatory process. THYROID GLAND: No nodules or masses seen. LYMPH NODES: No adenopathy seen greater than 1cm. LUNG APICES: No nodule or mass is seen. Emphysematous changes noted. OTHER: Vascular structures are patent. No significant degenerative change of the cervical spine. N o abscess seen. IMPRESSION: No discrete abnormality to account for the patient's symptoms. EXAMINATION TYPE: CT neck chest w con DATE OF EXAM: 09/25/2024 7:40 PM COMPARISON: None. CLINICAL INDICATION: Male, 69 years old with history of Dyspnea, hypoxia, difficulty breathing, TECHNIQUE: CT scan of the chest is performed with IV Contrast, patient injected with 100 ml mL of Iso andre 300. CT DLP: 469.6 mGycm, Automated exposure control for dose reduction was used. FINDINGS: LUNGS: The lungs are grossly clear, there is no concerning parenchymal mass or nodule identified. Hyp erinflation with moderate COPD. There is no pleural effusion or pneumothorax seen. The tracheobronch ial tree is patent. MEDIASTINUM: There are no greater than 1 cm hilar or mediastinal lymph nodes. No pericardial effusi on is seen. Thoracic aorta is of normal caliber. HEART: Size within normal limits. No significant coronary artery calcifications. UPPER ABDOMEN: No significant abnormality appreciated. OTHER: Postoperative changes of the spine. IMPRESSION: Hyperinflation with moderate COPD. [facility], , 09/25/2024 7:50 PM
[2024-09-25] MEDS: IPRATROPIUM-ALBUTEROL 3 ML NEB INHALATION STA (20:01)
[2024-09-25] MEDS ORDERED: ALBUTEROL NEBULIZED 2.5 MG/3 ML INHALATION PRN (20:14)
[2024-09-25] MEDS ORDERED: IBUPROFEN 400 MG TAB PO PRN (20:44)
[2024-09-25] MEDS ORDERED: LORazepam 0.5 MG TAB PO PRN (20:44)
[2024-09-25] MEDS ORDERED: ONDANSETRON 4 MG/2 ML VIAL IVP PRN (20:44)
[2024-09-25] MEDS ORDERED: ACETAMINOPHEN TAB 325 MG TAB PO PRN (20:44)
[2024-09-25] MEDS ORDERED: NALOXONE 0.4 MG/ML 1 ML VIAL IV PRN (20:44)
[2024-09-25] MEDS ORDERED: MORPHINE SULFATE 4 MG/ML SYRINGE IV PRN (20:44)
[2024-09-25] MEDS: QUEtiapine 100 MG TAB PO SCH (21:03)
[2024-09-25] MEDS: SODIUM CHLORIDE 0.9% 1,000 ML IV SCH (21:03)
[2024-09-25] MEDS: ATORVASTATIN 20 MG TAB PO SCH (21:03)
[2024-09-25 21:14] LABS: Influenza A Detected (Not Detectd); Influenza B Not Detected (Not Detectd); RSV Not Detected (Not Detectd)
[2024-09-25] MEDS: OSELTAMIVIR 75 MG CAP PO SCH (22:11)
[2024-09-26] MEDS: FINASTERIDE 5 MG TAB PO SCH (09:20)
[2024-09-26] MEDS: FLUoxetine HCL 20 MG CAP PO SCH (09:20)
[2024-09-26] MEDS: TAMSULOSIN 0.4 MG CAP.ER.24H PO SCH (09:21)
[2024-09-26] MEDS: PANTOPRAZOLE 40 MG/10 ML VIAL IV SCH (09:21)
[2024-09-26 09:33] LABS: Basophils # (A) 0.02 X 10*3/uL (0.00-0.10); Basophils % (A) 0.3 %; Eosinophils # (A) 0 X 10*3/uL (0.04-0.35); Eosinophils % (A) 0 %; HCT 38.8 % (39.6-50.0); HGB 12.6 g/dL (13.0-17.0); Lymphocytes # (A) 0.68 X 10*3/uL (0.90-5.00); Lymphocytes % (A) 10.7 %; MCH 31.3 pg (27.0-32.0); MCHC 32.5 g/dL (32.0-37.0); MCV 96.3 FL (80.0-97.0); Mean Platelet Volume 9.4 FL (9.5-12.2); Monocytes # (A) 0.65 X 10*3/uL (0.20-1.00); Monocytes % (A) 10.3 %; NRBC Per 100 WBC 0 X 10*3/uL (0.00-0.01); Neutrophils # (A) 4.97 X 10*3/uL (1.80-7.70); Neutrophils % (A) 78.4 %; Platelet Count 203 X 10*3/uL (140-440); RBC 4.03 X 10*6/uL (4.40-5.60); RDW 13.2 % (11.5-14.5); WBC 6.34 X 10*3/uL (4.50-10.00)
[2024-09-26 10:42] LABS: BUN/Creat Ratio 10.67 Ratio (12.00-20.00); Blood Urea Nitrogen 6.4 mg/dL (9.0-27.0); Calcium 8.4 mg/dL (8.7-10.3); Carbon Dioxide 28.9 mmol/L (21.6-31.8); Chloride 100 mmol/L (96-109); Glucose 101 mg/dL (70-110); Potassium 4.6 mmol/L (3.5-5.5); Sodium 136 mmol/L (135-145)
[2024-09-26] MEDS: IPRATROPIUM-ALBUTEROL 3 ML NEB INHALATION SCH (10:54)
[2024-09-26] MEDS: SYMBICORT 160-4.5 MCG INHALER INHALATION SCH (10:55)
[2024-09-26] MEDS ORDERED: methylPREDNISolone SOD SUCCIN 60 MG in SODIUM CHLORIDE 0.9% 100 ML IVPB SCH (12:00)
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
--- NOTE | 2024-09-26 14:40 | HP ---
HISTORY AND PHYSICAL CHIEF COMPLAINT: Shortness of breath. HISTORY OF PRESENT ILLNESS: This is a 69-year-old gentleman with past medical history of multiple complex medical problems, was complaining of shortness of breath for the past several days. The patient came to [facility], found to be hypoxic. The chest x-ray showed no acute abnormalities. The patient . There are no history of fever, rigors, chills. The patient has multiple electrolyte imbalance also. PAST MEDICAL HISTORY: Reviewed, which includes asthma and COPD. Rest of the history and rest of the chart is also reviewed. HOME MEDICATIONS: Reviewed and include Seroquel. Dose and rest of medications reviewed. ALLERGIES: None. FAMILY HISTORY: No history of heart disease or strokes in the family. SOCIAL HISTORY: Previous history of smoking. REVIEW OF SYSTEMS: Fourteen-point review of systems is negative except as mentioned earlier. PHYSICAL EXAMINATION: VITAL SIGNS: Pulse is 92, blood pressure 110/82, respirations 18. HEENT: Conjunctivae normal. NECK: No JVD. CARDIOVASCULAR: S1, S2. RESPIRATIONS: Breath sounds diminished at the bases. Bilateral scattered rhonchi. ABDOMEN: Soft and nontender. LEGS: No edema. NERVOUS SYSTEM: No focal deficits. LABORATORY DATA: Reviewed. ASSESSMENT: 1. Chronic obstructive pulmonary disease with acute exacerbation. 2. Acute influenza A. 3. Hypokalemia. 4. Hyponatremia. 5. History of asthma. 6. Hyperlipidemia. 7. History of degenerative joint disease. 8. History of prostate disorder. RECOMMENDATIONS AND DISCUSSION: Recommend to continue current medications and continue symptomatic treatment. Continue with bronchodilators. Continue steroids. Continue with Tamiflu. Closely follow with Pulmonary. Guarded prognosis. Further recommendations to follow. MMODL / IJN: [id number] / MTDD
[2024-09-26] MEDS: methylPREDNISolone SOD SUCCI 125 MG/2 ML VIAL IV SCH (15:09)
[2024-09-26] MEDS ORDERED: HEPARIN SODIUM 1,000 UN/ML (10ML VL) IV PRN (17:04)
[2024-09-26 17:25] LABS: Basophils % (A) 1 %; Eosinophils % (A) 1 %; HCT 40.5 % (39.0-53.0); HGB 12.8 gm/dL (13.0-17.5); Lymphocytes # (A) 0.5 k/uL (1.0-4.8); Lymphocytes % (A) 10 %; MCHC 31.5 g/dL (31.0-37.0); MCV 98.4 fL (80.0-100.0); Mean Platelet Volume 7.4; Monocytes # (A) 0.4 k/uL (0-1.0); Monocytes % (A) 8 %; Neutrophils # (A) 3.9 k/uL (1.3-7.7); Neutrophils % (A) 79 %; Platelet Count 190 k/uL (150-450); RBC 4.12 m/uL (4.30-5.90); RDW 13.7 % (11.5-15.5)
[2024-09-26 17:34] LABS: INR 0.9 (<1.2); Partial Thromboplastin Time 26.5 sec (22.0-30.0); Prothrombin Time 10.2 sec (10.0-12.5)
[2024-09-26] MEDS: IPRATROPIUM-ALBUTEROL 3 ML NEB INHALATION PRN (20:48)
[2024-09-27 08:35] LABS: Basophils % (A) 0 %; Eosinophils % (A) 0 %; HCT 41.3 % (39.0-53.0); HGB 13.4 gm/dL (13.0-17.5); Lymphocytes # (A) 0.2 k/uL (1.0-4.8); Lymphocytes % (A) 5 %; MCH 31.5 pg (25.0-35.0); MCHC 32.4 g/dL (31.0-37.0); MCV 97.1 fL (80.0-100.0); Mean Platelet Volume 6.8; Monocytes # (A) 0.1 k/uL (0-1.0); Monocytes % (A) 2 %; Neutrophils # (A) 4.2 k/uL (1.3-7.7); Neutrophils % (A) 93 %; Platelet Count 197 k/uL (150-450); RBC 4.25 m/uL (4.30-5.90); RDW 13.4 % (11.5-15.5); WBC 4.5 k/uL (3.8-10.6)
[2024-09-27 08:39] LABS: INR 0.9 (<1.2); Prothrombin Time 10.6 sec (10.0-12.5)
[2024-09-27] MEDS: HEPARIN SOD,PORK IN 0.45% NACL 25,000 UNIT in 0.45% NACL 1 250ML.BAG IV SCH (14:22)
[2024-09-27] MEDS: HEPARIN SODIUM 1,000 UN/ML (10ML VL) IV ONE (14:22)
[2024-09-27] MEDS: AMIODARONE 360 MG in DEXTROSE 5% IN WATER 200 ML IV ONE (14:22)
[2024-09-27] MEDS: AMIODARONE 450 MG in DEXTROSE 5% IN WATER 250 ML IV SCH (14:23)
[2024-09-27] MEDS: HYDROcodone/APAP 5-325MG 1 EACH TAB PO PRN (14:26)
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
[2024-09-27] MEDS: ALPRAZolam 0.25 MG TAB PO PRN (15:36)
[2024-09-27] MEDS: LOSARTAN 25 MG TAB PO SCH (15:36)
[2024-09-27] MEDS: METOPROLOL SUCCINATE (ER) 25 MG TAB.ER.24H PO SCH (15:36)
--- NOTE | 2024-09-27 18:18 | XR ---
EXAMINATION TYPE: XR chest 1V portable DATE OF EXAM: 09/27/2024 5:58 PM COMPARISON: Chest radiographs from 09/25/2024 CLINICAL INDICATION: Male, 69 years old with history of shortness of breath; [facility] TECHNIQUE: XR chest 1V portable Frontal view of the chest. FINDINGS: Lungs/Pleura: Prominent interstitial lung markings are seen scattered throughout the lungs with gretchen ening of the diaphragm and increased lucency of the lung apices. No evidence of focal consolidation, pneumothorax or pleural effusion. Pulmonary vascularity: Unremarkable. Heart/mediastinum: Cardiomediastinal silhouette is unremarkable. Musculoskeletal: No acute osseous pathology. There is lower spine fixation hardware is present. Verte broplasty changes present. Fixation changes in the cervical spine appear intact. IMPRESSION: Chronic changes without acute pulmonary process. No significant change from prior. [facility], , 09/27/2024 6:15 PM
[2024-09-28 11:00] LABS: Basophils % (A) 0 %; Eosinophils % (A) 0 %; HCT 38.7 % (39.0-53.0); HGB 12.7 gm/dL (13.0-17.5); Lymphocytes # (A) 0.4 k/uL (1.0-4.8); Lymphocytes % (A) 3 %; MCH 31.6 pg (25.0-35.0); MCHC 32.8 g/dL (31.0-37.0); MCV 96.4 fL (80.0-100.0); Monocytes # (A) 0.3 k/uL (0-1.0); Monocytes % (A) 3 %; Neutrophils # (A) 9.6 k/uL (1.3-7.7); Neutrophils % (A) 93 %; Platelet Count 204 k/uL (150-450); RBC 4.02 m/uL (4.30-5.90); RDW 13.4 % (11.5-15.5); WBC 10.4 k/uL (3.8-10.6)
[2024-09-28 11:17] LABS: African American GFR (CKD) >90 (>60 ml/min/1.73 sqM); Anion Gap 3 mmol/L; Blood Urea Nitrogen 10 mg/dL (9-20); Calcium 8.4 mg/dL (8.4-10.2); Carbon Dioxide 35 mmol/L (22-30); Chloride 92 mmol/L (98-107); Glucose 126 mg/dL (74-99); Magnesium 1.7 mg/dL (1.6-2.3); Non-African American GFR(CKD) >90 (>60 ml/min/1.73 sqM); Potassium 3.4 mmol/L (3.5-5.1); Sodium 130 mmol/L (137-145)
[2024-09-28 12:11] LABS: T4, Free (Free Thyroxine) 1.18 ng/dL (0.78-2.19)
[2024-09-28] MEDS ORDERED: Potassium Replacement Protocol 1 EACH MISC MISCELLANE PRN (12:17)
--- NOTE | 2024-09-28 12:21 | CA ---
Transthoracic Echo Report Name: Yovani Sanchez Age: 69 Gender: M : 1955 Exam Date: 09/28/2024 10:58 Exam Location: [facility] Ht (in): 72 Wt (lb): 116 Ordering Physician: Corby Garcia MD ([id number]) Attending/Referring Phys: Paper Coating Machine Operator Rodrigo Zapata, DANIELLE Procedure CPT: Indications: SVT, Shortness of breath Cardiac Hx: COPD, Asthma Technical Quality: Fair Contrast 1: Total Dose (mL): Contrast 2: Total Dose (mL): MEASUREMENTS (Male / Female) Normal Values 2D ECHO LV Diastolic Diameter PLAX 4.9 cm 4.2 - 5.9 / 3.9 - 5.3 cm LV Systolic Diameter PLAX 3.6 cm IVS Diastolic Thickness 0.8 cm 0.6 - 1.0 / 0.6 - 0.9 cm LVPW Diastolic Thickness 0.8 cm 0.6 - 1.0 / 0.6 - 0.9 cm LV Relative Wall Thickness 0.3 RV Internal Dim ED PLAX 4.3 cm LVOT Diameter 1.6 cm LA Systolic Diameter LX 3.5 cm 3.0 - 4.0 / 2.7 - 3.8 cm DOPPLER MV Area PHT 4.6 cm??? Mitral E Point Velocity 52.6 cm/s Mitral A Point Velocity 73.3 cm/s Mitral E to A Ratio 0.7 MV Deceleration Time 164.9 ms TR Peak Velocity 230.9 cm/s TR Peak Gradient 21.3 mmHg Right Atrial Pressure 10.0 mmHg Pulmonary Artery Systolic Pressu 31.3 mmHg Right Ventricular Systolic Press 31.3 mmHg FINDINGS Left Ventricle Left ventricular ejection fraction is estimated at 55-60%. Normal left ventricular systolic function with no obvious regional wall motion abnormalities. Right Ventricle Moderate right ventricular dilatation. Right ventricular systolic pressure within normal limits. Right Atrium Normal right atrial size. Left Atrium Normal left atrial size. Mitral Valve Structurally normal mitral valve. No mitral stenosis. Trace mitral regurgitation. Aortic Valve Aortic valve not well visualized. Tricuspid Valve Structurally normal tricuspid valve. No tricuspid stenosis. Trace tricuspid regurgitation. Pulmonic Valve Structurally normal pulmonic valve. No pulmonic stenosis. No pulmonic regurgitation. Pericardium Small pericardial effusion. Aorta Moderate aortic dilatation at the level of the sinuses of valsalva (root). CONCLUSIONS Indication for the procedure: Shortness of breath Normal LV size and function Right ventricular enlargement Thickened pericardium with trace effusion Previewed by: Dr. Miah Carrero MD (Electronically Signed) Final Date: 28 September 2024 12:21
[2024-09-28] MEDS: POTASSIUM CHLORIDE ER 20 MEQ TAB.ER PO SCH (12:23)
--- NOTE | 2024-09-28 13:31 | P.PN ---
Subjective HISTORY OF PRESENT ILLNESS: Patient is a 69-year-old male who presented to the hospital because of increased worsening shortness of breath. For the last 2 days it has progressively got worse. He has been dealing with shortness of breath for the last 6 months. He also had increased fatigue, chills and some associated cough. On admission he w as tested positive for influenza A. He was also being treated for acute COPD exacerbation. He is previously known to Dr. Serna who performed a heart cath in 03/2023 which did not show any obstructive coronary artery disease. Yesterday patient was noticed to have narrowness tachycardia with heart rate in 150s for which cardiology was consulted for suspected atrial fibrillation. On detailed review of telemetry patient went into narrow complex tachycardia which appears to be most likely SVT likely AVNRT versus atrial tachycardia, more likely AVNRT. It lasted for 1 hour from 3:30 PM to 4:30 PM on 09/26/2024. Less likely atrial fibrillation Admission Labs: Hb 12.6, BUN 8, creatinine 0.5, troponins were negative x 3, influenza A was positive for, NT-proBNP 153 Admission EKG: Sinus rhythm heart rate 99 bpm, nonspecific ST changes in inferolateral leads Imaging: Chest x-ray shows hyperinflated lung with no signs of congestion or consolidation Prior cardiac testing: Heart cath from 03/2023 shows no significant obstructive coronary artery disease. 09/28/2024 Patient examined this morning at the bedside. Patient had an episode this morning of shortness of breath when using the commode. He is currently on 4 L nasal cannula. He denies shortness of breath at the time of examination. He denies chest pain or pressure. He is maintaining sinus mechanism on telemetry. PHYSICAL EXAM: VITAL SIGNS: Reviewed. GENERAL: Well-developed in no acute distress. NECK: Supple. No JVD or thyromegaly LUNGS: Respirations even and unlabored. Lungs essentially clear to auscultation bilaterally. HEART: Regular rate and rhythm. S1 and S2 heard. EXTREMITIES: Normal range of motion. No clubbing or cyanosis. Peripheral pulses intact. 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 Less likely atrial fibrillation # Ex-smoker # Essential hypertension # Dyslipidemia PLAN: Continue current cardiac medications including Lipitor, losartan, metoprolol Continue telemetry monitoring Further recommendations pending patient course Nurse practitioner note has been reviewed by physician. Signing provider agrees with the documented findings, assessment, and plan of care documented by BUS INSPECTOR as a scribe. Objective - Vital Signs Vital signs: Vital Signs Temp 97.7 F 09/28/24 08:36 Pulse 81 09/28/24 09:01 Resp 24 09/28/24 09:19 BP 154/83 09/28/24 08:36 Pulse Ox 93 L 09/28/24 09:19 FiO2 Intake & Output 09/27/24 09/28/24 09/28/24 18:59 06:59 18:59 Intake Total 360 10 462 Balance 360 10 462 Intake: IV 10 Invasive Line 1 10 Oral 360 462 Other: Voiding Method Urinal Bedside Commode Bedside Commode Diaper Diaper # Voids 2 1 1 # Bowel Movements 1 - Labs CBC & Chem 7: 09/28/24 10:05 09/28/24 10:05 Labs: Abnormal Lab Results - Last 24 Hours (Table) 09/28/24 09/28/24 Range/Units 10:05 10:05 RBC 4.02 L (4.30-5.90) m/uL Hgb 12.7 L (13.0-17.5) gm/dL Hct 38.7 L (39.0-53.0) % Neutrophils # 9.6 H (1.3-7.7) k/uL Lymphocytes # 0.4 L (1.0-4.8) k/uL Sodium 130 L (137-145) mmol/L Potassium 3.4 L (3.5-5.1) mmol/L Chloride 92 L (98-107) mmol/L Carbon Dioxide 35 H (22-30) mmol/L Creatinine 0.43 L (0.66-1.25) mg/dL Glucose 126 H (74-99) mg/dL TSH 0.127 L (0.465-4.680) mIU/L
[2024-09-28 15:13] LABS: Chol/HDL Ratio 2.69 Ratio; LDL Cholesterol,Calculated 72.1 mg/dL (0.0-131.0)
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
--- NOTE | 2024-09-29 02:04 | PN ---
PROGRESS NOTE DATE OF SERVICE: 09/28/2024 SUBJECTIVE: This is a 69-year-old gentleman admitted with COPD acute exacerbation as well as acute influenza A. He is being closely monitored. No chest pain. No palpitation. OBJECTIVE: VITAL SIGNS: Pulse is 80, blood pressure 152/84, respirations 24. HEENT: Conjunctivae normal. CARDIOVASCULAR: S1, S2. RESPIRATIONS: Bilateral scattered rhonchi and crackles. ABDOMEN: Soft. NERVOUS SYSTEM: Nonfocal. LABORATORY DATA: Noted. ASSESSMENT: 1. Chronic obstructive pulmonary disease with acute exacerbation. 2. Acute influenza A. 3. Hypokalemia. 4. Hyponatremia. 5. History of asthma. 6. Hyperlipidemia. 7. History of degenerative joint disease. RECOMMENDATIONS AND DISCUSSION: Recommend to continue current management and continue symptomatic treatment. Otherwise, closely follow with multiple consultants. Guarded prognosis. Further recommendations to follow. MMMICHAELAL / IJN: [id number] /
[2024-09-29] MEDS ORDERED: Potassium Replacement Protocol 1 EACH MISC MISCELLANE PRN (08:51)
[2024-09-29 09:02] VITALS: TEMP 97.1
[2024-09-29] MEDS: POTASSIUM CHLORIDE ER 20 MEQ TAB.ER PO SCH (09:06)
--- NOTE | 2024-09-29 11:41 | P.PN ---
Subjective HISTORY OF PRESENT ILLNESS: Patient is a 69-year-old male who presented to the hospital because of increased worsening shortness of breath. For the last 2 days it has progressively got worse. He has been dealing with shortness of breath for the last 6 months. He also had increased fatigue, chills and some associated cough. On admission he w as tested positive for influenza A. He was also being treated for acute COPD exacerbation. He is previously known to Dr. Serna who performed a heart cath in 03/2023 which did not show any obstructive coronary artery disease. Yesterday patient was noticed to have narrowness tachycardia with heart rate in 150s for which cardiology was consulted for suspected atrial fibrillation. On detailed review of telemetry patient went into narrow complex tachycardia which appears to be most likely SVT likely AVNRT versus atrial tachycardia, more likely AVNRT. It lasted for 1 hour from 3:30 PM to 4:30 PM on 09/26/2024. Less likely atrial fibrillation Admission Labs: Hb 12.6, BUN 8, creatinine 0.5, troponins were negative x 3, influenza A was positive for, NT-proBNP 153 Admission EKG: Sinus rhythm heart rate 99 bpm, nonspecific ST changes in inferolateral leads Imaging: Chest x-ray shows hyperinflated lung with no signs of congestion or consolidation Prior cardiac testing: Heart cath from 03/2023 shows no significant obstructive coronary artery disease. 09/28/2024 Patient examined this morning at the bedside. Patient had an episode this morning of shortness of breath when using the commode. He is currently on 4 L nasal cannula. He denies shortness of breath at the time of examination. He denies chest pain or pressure. He is maintaining sinus mechanism on telemetry. 09/29/2024 Patient examined this morning at the bedside. Patient currently denies chest pain or pressure. He denies shortness of breath at the time of examination. Vital signs are stable. Telemetry reveals sinus mechanism PHYSICAL EXAM: VITAL SIGNS: Reviewed. GENERAL: Well-developed in no acute distress. NECK: Supple. No JVD or thyromegaly LUNGS: Respirations even and unlabored. Lungs essentially clear to auscultation bilaterally. HEART: Regular rate and rhythm. S1 and S2 heard. EXTREMITIES: Normal range of motion. No clubbing or cyanosis. Peripheral pulses intact. 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 Less likely atrial fibrillation # Ex-smoker # Essential hypertension # Dyslipidemia PLAN: Continue current cardiac medications including Lipitor, losartan, metoprolol Continue telemetry monitoring No further inpatient recommendations from a cardiac standpoint We will sign off. Please reconsult if needed. Nurse practitioner note has been reviewed by physician. Signing provider agrees with the documented findings, assessment, and plan of care documented by INJECTION MOLD TECHNICIAN as a scribe. Objective - Vital Signs Vital signs: Vital Signs Temp 97.1 F L 09/29/24 09:01 Pulse 74 09/29/24 11:24 Resp 19 09/29/24 11:24 BP 134/83 09/29/24 11:24 Pulse Ox 85 L 09/29/24 11:35 FiO2 Intake & Output 09/28/24 09/29/24 09/29/24 18:59 06:59 18:59 Intake Total 462 10 Balance 462 10 Weight 51.8 kg Intake: IV 10 Invasive Line 1 10 Oral 462 Other: Voiding Method Bedside Commode Bedside Commode Bedside Commode Diaper # Voids 1 4 - Labs CBC & Chem 7: 09/28/24 10:05 09/28/24 10:05 Labs: Abnormal Lab Results - Last 24 Hours (Table) 09/28/24 Range/Units 10:05 Sodium 130 L (137-145) mmol/L Potassium 3.4 L (3.5-5.1) mmol/L Chloride 92 L (98-107) mmol/L Carbon Dioxide 35 H (22-30) mmol/L Creatinine 0.43 L (0.66-1.25) mg/dL Glucose 126 H (74-99) mg/dL TSH 0.127 L (0.465-4.680) mIU/L
[2024-09-29 13:09] VITALS: BMI 15.5
--- NOTE | 2024-09-29 14:01 | P.PN ---
Progress Note - Text Progress Note Date: 09/29/24 Patient will require 4 L of oxygen on discharge via nasal cannula to manage his COPD.
[2024-09-29 15:28] VITALS: BP 159/95; RESP 18
[2024-09-29 16:56] VITALS: PULSE 85
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
--- NOTE | 2024-09-30 06:42 | P.DS ---
Providers Date of admission: 09/25/24 20:45 Expected date of discharge: 09/29/24 Attending physician: Jhonathan Pitts Consults: 09/25/24 20:44 Consult Physician Urgent Consulting Provider: Jono De Guzman Reason/Comments: Shortness of breath, hypoxia Do you want consulting provider notified?: Yes Primary care physician: Becca Lyles [facility] Hospital Course: . . Final diagnosis Chronic obstructive pulmonary disease with acute exacerbation Acute influenza A Acute hypoxic respiratory failure secondary to COPD exacerbation as well as acute influenza A infection Hypokalemia, improved Hyponatremia, improved History of asthma Anxiety Hyperlipidemia History of degenerative joint disease Discharge disposition Patient is being discharged in a stable condition with guarded prognosis to home with supplemental oxygen as patient will require 4 L on discharge to manage COPD. Patient will follow-up with Dr. Lyles in the outpatient setting upon discharge. Patient is to continue with completing Tamiflu along with breathing treatments and prednisone taper with close outpatient follow-up with pulmonary as scheduled. Total time taken is greater than 35 minutes. Hospital course This is a 69-year-old male who was recently admitted with increasing shortness of breath with COPD acute exacerbation with acute hypoxic respiratory failure. Patient also noted to be influenza A positive and is maintained on Tamiflu. Patient receiving vushys-hyr-fdtzz DuoNeb treatments along with IV steroids and will transition to oral prednisone. Patient will require 4 L of oxygen via nasal cannula to manage COPD on discharge. Patient is extremely anxious when becoming more short of breath and experiencing panic attacks. Recommend close outpatient follow-up with pulmonary as well as primary care provider on discharge. Patient has been cleared by consultations. Please refer to consultation notes for further HPI. Currently no reports of chest pain, continued intermittent shortness of breath, mostly with exertion, denies palpitations. Patient is afebrile. No reports of nausea or vomiting and patient is tolerating diet. Patient will be discharged home today. Extremely guarded prognosis given significant comorbidities and high risk for readmission. Physical exam: Gen: This is a 69-year-old male who is awake, alert and oriented x 3, thin build, elderly appearing, ill-appearing HEENT: Head is atraumatic, normocephalic. Pupils equal, round. Sclerae is anicteric. NECK: Supple. No JVD. No lymphadenopathy. No thyromegaly. LUNGS: Diminished breath sounds bilaterally with expiratory wheezes and coarse scattered rhonchi. No intercostal retractions. HEART: Regular rate and rhythm. No murmur. ABDOMEN: Soft. Thin. Bowel sounds are present. No masses. No tenderness. EXTREMITIES: No pedal edema. No calf tenderness. NEUROLOGICAL: Patient is awake, alert and oriented x3. Cranial nerves 2 through 12 are grossly intact. Please refer to medication reconciliation sheet for a list of medications. The impression and plan of care has been dictated by Cindy Vee, Nurse Practitioner as directed. Dr. Hong MD I have performed a history and examination and MDM of this patient, discussed the same with the dictator, and agree with the dictator's assessment and plan as written ,documented as a scribe. Based on total visit time, I have performed more than 50% of the visit. Patient Condition at Discharge: Fair Plan - Discharge Summary Discharge Rx Participant: No New Discharge Prescriptions: New Losartan [Cozaar] 25 mg PO DAILY #30 tab Ipratropium-Albuterol Nebulize [Duoneb 0.5 mg-3 mg/3 ml Soln] 3 ml INHALATION RT-QID PRN each PRN Reason: Shortness Of Breath Or Wheezing predniSONE See Taper PO DIRECTED #30 tab Budesonide-Formot 160-4.5 Mcg [Symbicort 160-4.5 Mcg Inhaler] 2 puff INHALATION RT-BID #1 each Oseltamivir [Tamiflu] 75 mg PO Q12HR 2 Days #3 cap Metoprolol Succinate (ER) [Toprol XL] 25 mg PO DAILY #30 tab Acetaminophen Tab [Tylenol] 650 mg PO Q6HR PRN tab PRN Reason: Mild Pain Or Fever > 100.5 Ipratropium-Albuterol Nebulize [Duoneb 0.5 mg-3 mg/3 ml Soln] 3 ml INHALATION RT-QID 30 Days #100 each Ibuprofen [Motrin] 400 mg PO Q6HR PRN tab PRN Reason: Mild Pain Or Fever > 100.5 Continue Tamsulosin HCl [Flomax] 0.8 mg PO DAILY Atorvastatin [Lipitor] 20 mg PO HS QUEtiapine [SEROquel] 100 mg PO HS #20 tab Albuterol Sulfate [Ventolin HFA] 2 puff INHALATION RT-QID PRN PRN Reason: Shortness Of Breath Dutasteride [Avodart] 0.5 mg PO DAILY FLUoxetine HCL 80 mg PO DAILY Discharge Medication List Tamsulosin HCl [Flomax] 0.8 mg PO DAILY 09/18/17 [History] QUEtiapine [SEROquel] 100 mg PO HS #20 tab 06/20/21 [Rx] Atorvastatin [Lipitor] 20 mg PO HS 04/20/23 [History] Albuterol Sulfate [Ventolin HFA] 2 puff INHALATION RT-QID PRN 09/25/24 [History] Dutasteride [Avodart] 0.5 mg PO DAILY 09/25/24 [History] FLUoxetine HCL 80 mg PO DAILY 09/25/24 [History] Acetaminophen Tab [Tylenol] 650 mg PO Q6HR PRN tab 09/29/24 [Rx] Budesonide-Formot 160-4.5 Mcg [Symbicort 160-4.5 Mcg Inhaler] 2 puff INHALATION RT-BID #1 each 09/29/24 [Rx] Ibuprofen [Motrin] 400 mg PO Q6HR PRN tab 09/29/24 [Rx] Ipratropium-Albuterol Nebulize [Duoneb 0.5 mg-3 mg/3 ml Soln] 3 ml INHALATION RT-QID 30 Days #100 each 09/29/24 [Rx] Ipratropium-Albuterol Nebulize [Duoneb 0.5 mg-3 mg/3 ml Soln] 3 ml INHALATION RT-QID PRN each 09/29/24 [Rx] Losartan [Cozaar] 25 mg PO DAILY #30 tab 09/29/24 [Rx] Metoprolol Succinate (ER) [Toprol XL] 25 mg PO DAILY #30 tab 09/29/24 [Rx] Oseltamivir [Tamiflu] 75 mg PO Q12HR 2 Days #3 cap 09/29/24 [Rx] predniSONE See Taper PO DIRECTED #30 tab 09/29/24 [Rx] Follow up Appointment(s)/Referral(s): Corby Garcia MD [Medical Doctor] - 1 Week (Please call to schedule hospital follow up. ) Becca Lyles DO [Primary Care Provider] - 1-2 days (Please call to schedule hopsital follow up. ) Maira Jon MD [STAFF PHYSICIAN] - 10/07/24 9:30 am Patient Instructions/Handouts: Hypokalemia (DC), COPD (Chronic Obstructive Pulmonary Disease) (DC) Activity/Diet/Wound Care/Special Instructions: Activity limited until follow-up Follow-up with primary care provider on discharge Follow-up with pulmonary outpatient in 1 to 2 weeks Follow-up with cardiology outpatient Continue taking medications as prescribed Discharge Disposition: HOME SELF-CARE
== END 2024-09-29 18:26 | disposition home or self-care (01) | DRG 193 ==
LOC: EC 18:08 → 4SSUR 20:45 → 1SOBS 09-26 01:38 → 3SCARD 09-26 18:31
PROVIDERS: ADMIT Hospitalist; ATTEND Hospitalist
DX: J10.1 Influenza due to other identified influenza virus with other respiratory manifestations (principal); J96.01 Acute respiratory failure with hypoxia; J44.0 Chronic obstructive pulmonary disease with (acute) lower respiratory infection; J44.1 Chronic obstructive pulmonary disease with (acute) exacerbation; E87.1 Hypo-osmolality and hyponatremia; I47.10 Supraventricular tachycardia, unspecified; F31.9 Bipolar disorder, unspecified; I10 Essential (primary) hypertension; J20.9 Acute bronchitis, unspecified; M54.9 Dorsalgia, unspecified; N42.9 Disorder of prostate, unspecified; F41.0 Panic disorder [episodic paroxysmal anxiety]; E78.5 Hyperlipidemia, unspecified; E87.6 Hypokalemia; M19.90 Unspecified osteoarthritis, unspecified site; G89.29 Other chronic pain; S12.500S Unspecified displaced fracture of sixth cervical vertebra, sequela; Z20.822 Contact with and (suspected) exposure to COVID-19; Z91.199 Patient's noncompliance with other medical treatment and regimen due to unspecified reason; Z87.891 Personal history of nicotine dependence; S12.600S Unspecified displaced fracture of seventh cervical vertebra, sequela; V49.9XXS Car occupant (driver) (passenger) injured in unspecified traffic accident, sequela; Z98.1 Arthrodesis status; Z79.51 Long term (current) use of inhaled steroids; Z79.899 Other long term (current) drug therapy
CPT/HCPCS: 36415; 70491; 71045; 71046; 71260; 80048; 80053; 80061; 83036; 83605; 83735; 83880; 84145; 84439; 84443; 84484; 85025; 85379; 85610; 85730; 87636; 93005; 93306; 94640; 94760; 96361; 96365; 96366; 96375; 99285

== ENCOUNTER 2024-09-30 06:09 | Inpatient (IN) | payer OTHER, MEDICARE ==
[2024-09-30] MEDS ORDERED: NALOXONE 0.4 MG/ML 1 ML VIAL IVP PRN (06:14)
[2024-09-30] MEDS: methylPREDNISolone SOD SUCCI 125 MG/2 ML VIAL IV STA (06:17)
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
[2024-09-30] MEDS: IPRATROPIUM 0.5 MG/2.5 ML NEBU INHALATION STA (06:26)
[2024-09-30] MEDS: ALBUTEROL NEBULIZED 2.5 MG/3 ML INHALATION STA (06:26)
[2024-09-30 06:33] LABS: Basophils % (A) 0 %; Eosinophils # (A) 0.1 k/uL (0-0.7); Eosinophils % (A) 0 %; HCT 43.2 % (39.0-53.0); HGB 13.9 gm/dL (13.0-17.5); Lymphocytes # (A) 1.1 k/uL (1.0-4.8); Lymphocytes % (A) 6 %; MCH 31.1 pg (25.0-35.0); MCHC 32.1 g/dL (31.0-37.0); MCV 96.9 fL (80.0-100.0); Mean Platelet Volume 7.2; Monocytes # (A) 0.9 k/uL (0-1.0); Monocytes % (A) 6 %; Neutrophils # (A) 14.3 k/uL (1.3-7.7); Neutrophils % (A) 86 %; Platelet Count 264 k/uL (150-450); RBC 4.46 m/uL (4.30-5.90); RDW 13.5 % (11.5-15.5); WBC 16.7 k/uL (3.8-10.6)
[2024-09-30] MEDS: LORazepam 2 MG/ML INJ IV STA (06:39)
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
[2024-09-30 06:50] LABS: ALT 43 U/L (4-49); AST 38 U/L (17-59); African American GFR (CKD) >90 (>60 ml/min/1.73 sqM); Albumin 3.8 g/dL (3.5-5.0); Alkaline Phosphatase 96 U/L (38-126); Anion Gap 3 mmol/L; Blood Urea Nitrogen 18 mg/dL (9-20); Carbon Dioxide 35 mmol/L (22-30); Chloride 96 mmol/L (98-107); Glucose 136 mg/dL (74-99); Non-African American GFR(CKD) >90 (>60 ml/min/1.73 sqM); Potassium 4.5 mmol/L (3.5-5.1); Sodium 134 mmol/L (137-145); Total Bilirubin 0.7 mg/dL (0.2-1.3); Total Protein 6.2 g/dL (6.3-8.2)
[2024-09-30 06:58] LABS: NT-Pro-B-Type Natriuretic Pept 1030 pg/mL
[2024-09-30 06:59] LABS: INR 0.9 (<1.2); Prothrombin Time 10.2 sec (10.0-12.5)
[2024-09-30 07:25] LABS: Partial Thromboplastin Time 21.3 sec (22.0-30.0)
[2024-09-30] MEDS: IPRATROPIUM-ALBUTEROL 3 ML NEB INHALATION SCH (08:15)
[2024-09-30] MEDS ORDERED: ALBUTEROL HFA INHALER INHALATION PRN (09:28)
[2024-09-30] MEDS ORDERED: ACETAMINOPHEN TAB 325 MG TAB PO PRN (09:28)
[2024-09-30] MEDS: FLUoxetine HCL 20 MG CAP PO SCH (10:40)
[2024-09-30] MEDS: TAMSULOSIN 0.4 MG CAP.ER.24H PO SCH (10:40)
[2024-09-30] MEDS: ALPRAZolam 0.25 MG TAB PO PRN (10:40)
[2024-09-30] MEDS: OSELTAMIVIR 75 MG CAP PO SCH (10:41)
[2024-09-30] MEDS: METOPROLOL SUCCINATE (ER) 25 MG TAB.ER.24H PO SCH (10:41)
[2024-09-30] MEDS: LOSARTAN 25 MG TAB PO SCH (10:41)
[2024-09-30] MEDS: FINASTERIDE 5 MG TAB PO SCH (10:41)
[2024-09-30] MEDS: methylPREDNISolone SOD SUCCI 125 MG/2 ML VIAL IV SCH (11:17)
[2024-09-30 13:46] LABS: Influenza A Not Detected (Not Detectd); Influenza B Not Detected (Not Detectd); RSV Not Detected (Not Detectd)
[2024-09-30] MEDS: HEPARIN SODIUM,PORCINE 5,000 UNIT/ML 1 ML VIAL SQ SCH (15:10)
[2024-09-30] MEDS: FORMOTEROL FUMARATE 20 MCG/2 ML NEBU INHALATION SCH (15:43)
[2024-09-30] MEDS: BUDESONIDE 1 MG/2 ML NEBU INHALATION SCH (15:43)
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
[2024-09-30 17:23] LABS: Glucose,Whole Blood 110 mg/dL (70-110)
[2024-09-30 17:42] LABS: ABG Base Excess 8.3 mmol/L; ABG HCO3 36 mmol/L (21-25); ABG Oxygen Saturation 99.7 % (94-97); ABG PCO2 67 mmHg (35-45); ABG PH 7.35 (7.35-7.45); ABG PO2 206 mmHg (83-108); ABG TCO2 39 mmol/L (19-24); Allen Test Performed? Yes
[2024-09-30] MEDS: DEXMEDETOMIDINE/0.9% NACL(PMX) 400 MCG in EMPTY BAG 1 BAG IV SCH (18:41)
[2024-09-30] MEDS ORDERED: SYMBICORT 160-4.5 MCG INHALER INHALATION SCH (20:00)
--- NOTE | 2024-09-30 21:11 | HP ---
HISTORY AND PHYSICAL CHIEF COMPLAINT: Shortness of breath. HISTORY OF PRESENT ILLNESS: This is a 69-year-old gentleman with a past medical history of multiple medical problems including COPD, who was actually discharged yesterday because of COPD with acute exacerbation, acute influenza and other multiple complex medical issues. The patient went home. Apparently, the patient was extremely anxious and the patient had severe respiratory distress and hypoxia, and the patient required CPAP during the transport and the patient was admitted for further evaluation and treatment. Currently, the patient is on BiPAP. Chest x-ray showed COPD. The viral testing is negative. The patient will be admitted for further evaluation and treatment. There is no history of any fever, rigors, or chills at this time. PAST MEDICAL HISTORY: History of recent flu and COPD and other medical issues as mentioned earlier. Rest of history and rest of chart is also reviewed. HOME MEDICATIONS: Reviewed and include DuoNeb. Dose and rest of medications reviewed. ALLERGIES: None. FAMILY HISTORY: Could not be taken as the patient is mildly confused. SOCIAL HISTORY: Could not be taken as the patient is mildly confused. REVIEW OF SYSTEMS: Could not be taken as the patient is mildly confused. PHYSICAL EXAMINATION: VITAL SIGNS: Pulse is 95, blood pressure 172/101, respiratory rate 26. HEENT: Conjunctivae normal. NECK: No JVD. CARDIOVASCULAR: S1, S2. RESPIRATIONS: Breath sounds diminished at the bases. Bilaterally scattered rhonchi and crackles. ABDOMEN: Soft, nontender. LEGS: Nontender. NERVOUS SYSTEM: Nonfocal. LABORATORY DATA: At this time WBC is16.7. ASSESSMENT: 1. Chronic obstructive pulmonary disease with acute exacerbation with acute purulent tracheobronchitis with failure of outpatient treatment. 2. Hypertension. 3. Change in mental status, metabolic encephalopathy. 4. History of asthma. 5. Hyperlipidemia. 6. Degenerative joint disease. 7. History of back surgery. 8. History of bipolar depression. 9. History of nicotine dependence. RECOMMENDATIONS AND DISCUSSION: This is a 69-year-old gentleman, who presented with multiple complex medical issues, we will monitor the patient closely. I would recommend IV steroids and also intensive bronchodilator treatment. I would also recommend empiric antibiotics. Follow up closely with Pulmonary. Monitor blood sugars closely. DVT prophylaxis. Resume the home medications. Prognosis is extremely guarded. Further recommendations to follow. MMODL / IJN: [id number] /
[2024-09-30] MEDS: ATORVASTATIN 40 MG TAB PO SCH (22:24)
[2024-09-30] MEDS: QUEtiapine 100 MG TAB PO SCH (22:24)
[2024-09-30] MEDS: HYDROmorphone 0.5 MG/0.5 ML SYRINGE IVP PRN (23:26)
[2024-10-01 03:21] LABS: Basophils % (A) 0 %; Eosinophils % (A) 0 %; HCT 41.8 % (39.0-53.0); HGB 12.9 gm/dL (13.0-17.5); Lymphocytes # (A) 0.3 k/uL (1.0-4.8); Lymphocytes % (A) 3 %; MCH 30.5 pg (25.0-35.0); MCHC 30.9 g/dL (31.0-37.0); MCV 98.6 fL (80.0-100.0); Mean Platelet Volume 7.6; Monocytes # (A) 0.3 k/uL (0-1.0); Monocytes % (A) 4 %; Neutrophils # (A) 7.8 k/uL (1.3-7.7); Neutrophils % (A) 91 %; Platelet Count 171 k/uL (150-450); RBC 4.24 m/uL (4.30-5.90); RDW 13.8 % (11.5-15.5); WBC 8.5 k/uL (3.8-10.6)
[2024-10-01 03:49] LABS: African American GFR (CKD) >90 (>60 ml/min/1.73 sqM); Anion Gap 8 mmol/L; Blood Urea Nitrogen 29 mg/dL (9-20); Carbon Dioxide 33 mmol/L (22-30); Chloride 94 mmol/L (98-107); Glucose 115 mg/dL (74-99); Non-African American GFR(CKD) >90 (>60 ml/min/1.73 sqM); Potassium 4.7 mmol/L (3.5-5.1); Sodium 135 mmol/L (137-145)
[2024-10-01 04:31] LABS: ABG Base Excess 5.9 mmol/L; ABG HCO3 33 mmol/L (21-25); ABG Oxygen Saturation >100.0 % (94-97); ABG PCO2 56 mmHg (35-45); ABG PH 7.37 (7.35-7.45); ABG TCO2 34 mmol/L (19-24)
[2024-10-01 04:32] LABS: ABG PO2 >420 mmHg (83-108); Allen Test Performed? no
--- NOTE | 2024-10-01 04:52 | XR ---
EXAM: XR Chest, 1 View CLINICAL HISTORY: ITS.REASON XR Reason: Tube placement TECHNIQUE: Frontal view of the chest. COMPARISON: X-ray dated 10/01/2023. FINDINGS: Lungs: Unremarkable. No consolidation. Pleural space: Unremarkable. No pneumothorax. Heart: Unremarkable. No cardiomegaly. Mediastinum: Unremarkable. Normal mediastinal contour. Bones/joints: Unremarkable. No acute fracture. Tubes, lines and devices: Interval placement of endotracheal through terminating 4.4 cm allen. Enteric tube is in place with the side-port overlying the gastric bubble. IMPRESSION: 1. Medical supportive devices as above. 2. Otherwise stable chest
[2024-10-01] MEDS: SODIUM CHLORIDE 0.9% 1,000 ML IV ONE (06:01)
[2024-10-01 06:12] LABS: Glucose,Whole Blood 119 mg/dL (70-110)
[2024-10-01] MEDS ORDERED: NOREPINEPHRINE 8 MG in SODIUM CHLORIDE 0.9% 250 ML IV SCH (08:30)
[2024-10-01] MEDS: SODIUM CHLORIDE 0.9% 1,000 ML IV SCH (08:52)
[2024-10-01] MEDS: NOREPINEPHRINE 4 MG in SODIUM CHLORIDE 0.9% 250 ML IV ONE (09:13)
[2024-10-01] MEDS: CHLORHEXIDINE GLUCONATE 15 ML CUP MUCOUS MEM SCH (09:20)
[2024-10-01] MEDS: PANTOPRAZOLE 40 MG TABLET PO SCH (09:21)
[2024-10-01 11:31] LABS: Glucose,Whole Blood 123 mg/dL (70-110)
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
[2024-10-01 17:48] LABS: Glucose,Whole Blood 111 mg/dL (70-110)
[2024-10-02 00:56] LABS: Glucose,Whole Blood 129 mg/dL (70-110)
--- NOTE | 2024-10-02 02:34 | PN ---
PROGRESS NOTE DATE OF SERVICE: 10/01/2024 SUBJECTIVE: This is a 69-year-old gentleman, who was admitted with COPD exacerbation and recently admitted. The patient had a change in mental status. The patient developed progressive respiratory failure and transferred to ICU and the patient is currently mechanically ventilated at this time. The vent settings are noted. Dr. Jon is following the patient closely. The procalcitonin is normal. The viral panels are also normal. PAST MEDICAL HISTORY: Reviewed. REVIEW OF SYSTEMS: Could not be done. CURRENT MEDICATIONS: Reviewed. PHYSICAL EXAMINATION: VITAL SIGNS: Pulse is 64, blood pressure 92/69, respirations 20. HEENT: Conjunctivae normal. NECK: No JVD. CARDIOVASCULAR: S1, S2 RESPIRATIONS: Breath sounds diminished in the bases. A few scattered rhonchi. ABDOMEN: Soft, nontender. NERVOUS SYSTEM: Nonfocal. LABORATORY DATA: Sodium 135. Rest of the labs are noted. Chest x-ray reviewed. ASSESSMENT: 1. Chronic obstructive pulmonary disease with acute exacerbation with acute purulent tracheobronchitis as well as acute hypoxic respiratory failure, on mechanical ventilation. 2. Change in mental status, acute metabolic encephalopathy. 3. Hypertension. 4. History of asthma. 5. Multiple complex medical issues. RECOMMENDATIONS: Recommended to continue current management, continue symptomatic treatment. Otherwise, continue with empiric antibiotics. We will follow the cultures. Continue with the bronchodilators, IV steroids, mechanical ventilation per Dr. Jon. Monitor blood pressure closely. Recommend repeat labs and chest x-ray in the morning. Guarded prognosis. Further recommendations to follow. MMODL / IJN: [id number] /
[2024-10-02 04:30] LABS: Basophils % (A) 0 %; Eosinophils % (A) 0 %; HGB 11.6 gm/dL (13.0-17.5); Lymphocytes # (A) 0.2 k/uL (1.0-4.8); Lymphocytes % (A) 2 %; MCH 31.3 pg (25.0-35.0); MCHC 32.2 g/dL (31.0-37.0); MCV 97.2 fL (80.0-100.0); Mean Platelet Volume 8.2; Monocytes # (A) 0.4 k/uL (0-1.0); Monocytes % (A) 4 %; Neutrophils # (A) 10.5 k/uL (1.3-7.7); Neutrophils % (A) 94 %; Platelet Count 160 k/uL (150-450); RDW 14.1 % (11.5-15.5); WBC 11.2 k/uL (3.8-10.6)
[2024-10-02 04:42] LABS: ALT 27 U/L (4-49); AST 19 U/L (17-59); African American GFR (CKD) >90 (>60 ml/min/1.73 sqM); Albumin 2.6 g/dL (3.5-5.0); Alkaline Phosphatase 69 U/L (38-126); Anion Gap 2 mmol/L; Blood Urea Nitrogen 27 mg/dL (9-20); Calcium 8.6 mg/dL (8.4-10.2); Carbon Dioxide 33 mmol/L (22-30); Chloride 100 mmol/L (98-107); Glucose 136 mg/dL (74-99); Non-African American GFR(CKD) >90 (>60 ml/min/1.73 sqM); Potassium 3.6 mmol/L (3.5-5.1); Sodium 135 mmol/L (137-145); Total Bilirubin 0.5 mg/dL (0.2-1.3); Total Protein 4.7 g/dL (6.3-8.2)
[2024-10-02] MEDS ORDERED: Potassium Replacement Protocol 1 EACH MISC MISCELLANE PRN (05:14)
[2024-10-02 05:20] LABS: ABG Base Excess 7.2 mmol/L; ABG HCO3 32 mmol/L (21-25); ABG Oxygen Saturation 99.8 % (94-97); ABG PCO2 47 mmHg (35-45); ABG PH 7.44 (7.35-7.45); ABG PO2 192 mmHg (83-108); ABG TCO2 34 mmol/L (19-24)
[2024-10-02 05:21] LABS: Allen Test Performed? no
[2024-10-02] MEDS: POTASSIUM BICARBONATE/CIT AC 20 MEQ TABLET.EFF NG-TUBE SCH ×2 (06:12→17:04)
[2024-10-02 06:22] LABS: Glucose,Whole Blood 150 mg/dL (70-110)
--- NOTE | 2024-10-02 08:01 | XR ---
EXAMINATION TYPE: XR chest 1V portable DATE OF EXAM: 10/02/2024 5:04 AM COMPARISON: 10/01/2024 CLINICAL INDICATION: Male, 69 years old with history of Tube placement, TECHNIQUE: XR chest 1V portable view(s) obtained. FINDINGS: The heart size is normal. The pulmonary vasculature is normal. No focal consolidations evident. Minimal left pleural and right costophrenic angle fluid is present. Endotracheal tube tip is 7.6 cm above the allen. Nasogastric tube transverses the thorax IMPRESSION: 1. Minimal bilateral pleural effusions. 2. Lines and catheters discussed above [facility], , 10/02/2024 7:59 AM
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
[2024-10-02 12:01] LABS: Glucose,Whole Blood 151 mg/dL (70-110)
[2024-10-02] MEDS ORDERED: DEXTROSE 50% SYRINGE 50 ML IVP PRN (14:55)
[2024-10-02] MEDS ORDERED: INSULIN LISPRO (HumaLOG) 100 UNIT/ML 10 mL VL SQ SCH (15:00)
[2024-10-02 18:04] LABS: Glucose,Whole Blood 134 mg/dL (70-110)
[2024-10-02] MEDS: INSULIN LISPRO (HumaLOG) 100 UNIT/ML 10 mL VL SQ SCH (18:42)
[2024-10-02] MEDS ORDERED: LACTATED RINGERS 1,000 ML IV SCH (19:30)
[2024-10-02] MEDS: NOREPINEPHRINE 4 MG in SODIUM CHLORIDE 0.9% 250 ML IV SCH (21:23)
[2024-10-03 00:03] LABS: Glucose,Whole Blood 144 mg/dL (70-110)
--- NOTE | 2024-10-03 00:21 | PN ---
PROGRESS NOTE DATE OF SERVICE: 10/02/2024 SUBJECTIVE: This is a 69-year-old gentleman, who was admitted with COPD acute exacerbation with acute purulent tracheobronchitis as well as acute hypoxic respiratory failure, on mechanical ventilation. The patient is being closely monitored in ICU. The most recent chest x-ray was reviewed. The patient is on BiPAP previous to the intubation. The vent settings are noted. The most recent viral testing is negative. Hemoglobin is 11.6. PAST MEDICAL HISTORY: Reviewed. REVIEW OF SYSTEMS: Could not be taken. CURRENT MEDICATIONS: Reviewed. PHYSICAL EXAMINATION: VITAL SIGNS: Pulse is 74, blood pressure 114/78, respirations 26. Vent settings are noted. HEENT: Conjunctivae normal. CARDIOVASCULAR: S1, S2. RESPIRATIONS: Breath sounds diminished at the bases. A few scattered rhonchi and crackles. ABDOMEN: Soft. NERVOUS SYSTEM: Nonfocal. LABORATORY DATA: Noted. ASSESSMENT: 1. Chronic obstructive pulmonary disease acute exacerbation with acute purulent tracheobronchitis as well as acute hypoxic respiratory failure, on mechanical ventilation. 2. Change in mental status, acute metabolic encephalopathy. 3. Hypertension. 4. History of asthma. 5. Multiple complex medical issues. RECOMMENDATIONS: Recommend to continue current management and continue symptomatic treatment. Continue with bronchodilators. Continue with empiric antibiotics. The sputum culture showed Corynebacterium species. Otherwise, chest x-ray showed no significant pneumonia. We will continue to monitor steroids. Monitor blood sugars closely. Closely follow with Pulmonary. Further recommendations to follow. MMODL / IJN: [id number] /
[2024-10-03 04:45] LABS: Basophils % (A) 0 %; Eosinophils % (A) 0 %; HGB 11.8 gm/dL (13.0-17.5); Lymphocytes # (A) 0.1 k/uL (1.0-4.8); Lymphocytes % (A) 1 %; MCH 30.9 pg (25.0-35.0); MCHC 31.9 g/dL (31.0-37.0); MCV 96.8 fL (80.0-100.0); Mean Platelet Volume 8.9; Monocytes # (A) 0.4 k/uL (0-1.0); Monocytes % (A) 3 %; Neutrophils # (A) 10.9 k/uL (1.3-7.7); Neutrophils % (A) 95 %; Platelet Count 167 k/uL (150-450); RBC 3.82 m/uL (4.30-5.90); RDW 14.1 % (11.5-15.5); WBC 11.5 k/uL (3.8-10.6)
[2024-10-03 04:55] LABS: African American GFR (CKD) >90 (>60 ml/min/1.73 sqM); Blood Urea Nitrogen 28 mg/dL (9-20); Calcium 8.4 mg/dL (8.4-10.2); Carbon Dioxide 35 mmol/L (22-30); Glucose 174 mg/dL (74-99); Non-African American GFR(CKD) >90 (>60 ml/min/1.73 sqM); Potassium 3.8 mmol/L (3.5-5.1); Sodium 136 mmol/L (137-145)
[2024-10-03 05:11] LABS: ABG Base Excess 8.3 mmol/L; ABG HCO3 34 mmol/L (21-25); ABG Oxygen Saturation 99.3 % (94-97); ABG PCO2 51 mmHg (35-45); ABG PH 7.43 (7.35-7.45); ABG PO2 142 mmHg (83-108); ABG TCO2 36 mmol/L (19-24)
[2024-10-03 05:12] LABS: Allen Test Performed? no
[2024-10-03 05:25] LABS: Anion Gap 1 mmol/L; Chloride 100 mmol/L (98-107)
[2024-10-03 05:50] LABS: Glucose,Whole Blood 160 mg/dL (70-110)
[2024-10-03] MEDS: POTASSIUM BICARBONATE/CIT AC 20 MEQ TABLET.EFF NG-TUBE SCH (05:53)
--- NOTE | 2024-10-03 06:45 | XR ---
EXAMINATION TYPE: XR chest 1V portable DATE OF EXAM: 10/03/2024 CLINICAL INDICATION: Male, 69 years old with history of Tube placement, progress study. TECHNIQUE: Single AP portable semiupright view of the chest is obtained. COMPARISON: Chest x-ray from one day earlier and older studies. FINDINGS: Stable endotracheal and orogastric tubes. Suboptimal evaluation of endotracheal tube on cu rrent study due to overlap of external portion. Background chronic emphysematous change redemonstrated. Tiny bilateral pleural effusions remain prese nt. Cardiac silhouette size is stable and within normal limits. Underlying scoliosis is seen. Surgica l change in the cervical and thoracolumbar spine is redemonstrated. IMPRESSION: Chronic emphysematous change with tiny bilateral pleural effusions. No significant change from one day earlier. [facility], , 10/03/2024 6:43 AM
[2024-10-03] MEDS: METOPROLOL TARTRATE 12.5 MG TAB PO SCH (10:35)
[2024-10-03 10:41] LABS: ABG Base Excess 8.1 mmol/L; ABG HCO3 35 mmol/L (21-25); ABG Oxygen Saturation 97.9 % (94-97); ABG PCO2 58 mmHg (35-45); ABG PH 7.39 (7.35-7.45); ABG PO2 105 mmHg (83-108); ABG TCO2 37 mmol/L (19-24)
[2024-10-03 10:42] LABS: Allen Test Performed? no
[2024-10-03] MEDS: LORazepam 1 MG/0.5 ML VIAL IV STA (11:33)
[2024-10-03 11:40] LABS: Glucose,Whole Blood 126 mg/dL (70-110)
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
[2024-10-03] MEDS: ALPRAZolam 0.5 MG TAB PO PRN (13:58)
[2024-10-03] MEDS: amLODIPine 10 MG TAB PO SCH (15:36)
[2024-10-03 17:50] LABS: Glucose,Whole Blood 121 mg/dL (70-110)
[2024-10-03] MEDS: METOPROLOL TARTRATE 25 MG TAB PO SCH (20:36)
[2024-10-03] MEDS: guaiFENesin-DM 100-10MG/5ML 10 ML CUP PO PRN (20:50)
[2024-10-03] MEDS: DEXMEDETOMIDINE/0.9% NACL(PMX) 400 MCG in EMPTY BAG 1 BAG IV SCH (22:18)
--- NOTE | 2024-10-03 23:21 | PN ---
PROGRESS NOTE DATE OF SERVICE: 10/03/2024 SUBJECTIVE: This is a 69-year-old gentleman, who was admitted with COPD acute exacerbation, is on mechanical ventilator. The patient is extubated. The patient is confused. The patient is generally weak at this time. Pulmonary is following the patient. The patient is being closely monitored in the ICU. Chest x-ray which I reviewed personally showed no significant pneumonia at this point. PAST MEDICAL HISTORY: Reviewed. REVIEW OF SYSTEMS: A 14-point review of systems is negative except as mentioned earlier. CURRENT MEDICATIONS: Reviewed. PHYSICAL EXAMINATION: VITAL SIGNS: Pulse is 85, blood pressure 171/80, respirations 12. HEENT: Conjunctivae normal. CARDIOVASCULAR: S1, S2. RESPIRATIONS: A few scattered rhonchi. ABDOMEN: Soft. NERVOUS SYSTEM: Nonfocal. LABORATORY DATA: Reviewed. ASSESSMENT: 1. Chronic obstructive pulmonary disease acute exacerbation with acute purulent tracheobronchitis as well as acute hypoxic respiratory failure, status post mechanical ventilation. 2. Hypertension. 3. Change in mental status, acute metabolic encephalopathy. 4. History of asthma. 5. Multiple complex medical issues. RECOMMENDATIONS: Recommend to continue current medications and continue symptomatic treatment. Otherwise, I will add Norvasc to the current regimen. Continue the antibiotic. Continue the bronchodilators and steroids. Closely follow with Pulmonary. Further recommendations to follow. MMODL / IJN: [id number] /
[2024-10-03 23:27] LABS: Glucose,Whole Blood 105 mg/dL (70-110)
[2024-10-04] MEDS: IPRATROPIUM-ALBUTEROL 3 ML NEB INHALATION PRN (04:17)
[2024-10-04 05:25] LABS: Basophils # (A) 0.02 10*3/uL (0.00-0.10); Basophils % (A) 0.1 %; HCT 37.5 % (39.6-50.0); HGB 12.5 g/dL (13.0-17.0); Lymphocytes % (A) 1.3 %; MCH 31.9 pg (27.0-32.0); MCHC 33.3 g/dL (32.0-37.0); MCV 95.7 fL (80.0-97.0); Mean Platelet Volume 9.7 fL (9.5-12.2); Monocytes % (A) 2.6 %; Neutrophils # (A) 14.68 10*3/uL (1.80-7.70); Neutrophils % (A) 95.1 %; Platelet Count 182 10*3/uL (140-440); RBC 3.92 10*6/uL (4.40-5.60); RDW 13.9 % (11.5-14.5); WBC 15.44 10*3/uL (4.50-10.00)
[2024-10-04 05:36] LABS: Glucose,Whole Blood 118 mg/dL (70-110)
[2024-10-04 05:49] LABS: African American GFR (CKD) >90 (>60 ml/min/1.73 sqM); Anion Gap -1 mmol/L; Blood Urea Nitrogen 22 mg/dL (9-20); Calcium 8.4 mg/dL (8.4-10.2); Carbon Dioxide 38 mmol/L (22-30); Chloride 101 mmol/L (98-107); Glucose 120 mg/dL (74-99); Non-African American GFR(CKD) >90 (>60 ml/min/1.73 sqM); Potassium 4.2 mmol/L (3.5-5.1); Sodium 138 mmol/L (137-145)
--- NOTE | 2024-10-04 07:56 | XR ---
EXAMINATION TYPE: XR chest 1V portable DATE OF EXAM: 10/04/2024 CLINICAL INDICATION: Male, 69 years old with history of acute hypoxemic respiratory failure, progress study. TECHNIQUE: Single AP portable upright view of the chest is obtained. COMPARISON: Chest x-ray from one day earlier and older studies. FINDINGS: Interval extubation with removal of the endotracheal and orogastric tubes. Background chronic emphysematous change is redemonstrated. Tiny bilateral pleural effusions remain pr esent. Cardiac silhouette size is stable and within normal limits. Underlying scoliosis is seen. Surg ical change in the cervical and thoracolumbar spine is redemonstrated. IMPRESSION: Interval extubation. Chronic emphysematous change with tiny bilateral pleural effusions r edemonstrated. No acute pulmonary infiltrate. [facility], , 10/04/2024 7:54 AM
[2024-10-04] MEDS: LOSARTAN 50 MG TAB PO SCH (08:04)
[2024-10-04 11:12] LABS: Glucose,Whole Blood 119 mg/dL (70-110)
[2024-10-04] MEDS: HALOPERIDOL LACTATE 5 MG/ML 1 ML VIAL IVP STA (12:13)
[2024-10-04] MEDS: DEXMEDETOMIDINE/0.9% NACL(PMX) 400 MCG in EMPTY BAG 1 BAG IV SCH (13:00)
[2024-10-04 13:31] LABS: ABG Base Excess 9.8 mmol/L; ABG HCO3 37 mmol/L (21-25); ABG Oxygen Saturation 98.5 % (94-97); ABG PCO2 64 mmHg (35-45); ABG PH 7.38 (7.35-7.45); ABG PO2 117 mmHg (83-108); ABG TCO2 39 mmol/L (19-24); Allen Test Performed? Yes
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
[2024-10-04] MEDS: SODIUM CHLORIDE 0.9% 500 ML 500 ML IV ONE (14:30)
[2024-10-04] MEDS: ALPRAZolam 0.5 MG TAB PO SCH (15:14)
--- NOTE | 2024-10-04 17:18 | PN ---
PROGRESS NOTE DATE OF SERVICE: 10/04/2024 SUBJECTIVE: This is a 69-year-old gentleman, who was admitted with COPD acute exacerbation, is on mechanical ventilator, extubated. Currently, the patient is confused. The most recent chest x-ray reviewed again, no evidence of acute pneumonia. The patient is being closely monitored. Multiple consultants are following the patient in the ICU. PAST MEDICAL HISTORY: Reviewed. REVIEW OF SYSTEMS: Could not be taken. The patient is confused. CURRENT MEDICATIONS: Reviewed. PHYSICAL EXAMINATION: VITAL SIGNS: Pulse is 60, blood pressure 91/69, respirations 14. HEENT: Conjunctivae normal. NECK: No JVD. CARDIOVASCULAR: S1, S2. RESPIRATIONS: Breath sounds diminished at the bases. No rhonchi. No crackles. ABDOMEN: Soft, nontender. LEGS: No edema. NERVOUS SYSTEM: Nonfocal. LABORATORY DATA: Reviewed. ASSESSMENT: 1. Chronic obstructive pulmonary disease acute exacerbation with acute purulent tracheobronchitis as well as acute hypoxic respiratory failure, status post mechanical ventilation. 2. Relative hypotension. 3. History of hypertension. 4. Change in mental status, acute metabolic encephalopathy. 5. History of asthma. 6. Multiple complex medical issues. RECOMMENDATIONS: Recommend to continue current management and continue symptomatic treatment. Recommend to stop the Norvasc. ABGs noted. The patient has hypercarbic respiratory failure. Recommend to continue with BiPAP and closely follow with Dr. Pfeiffer. Continue with empiric antibiotics. Cultures are negative so far. The viral panel is also negative. Further recommendations to follow. MMODL / IJN: [id number] /
[2024-10-04 17:44] LABS: Glucose,Whole Blood 106 mg/dL (70-110)
[2024-10-04] MEDS: LORazepam 1 MG/0.5 ML VIAL IV STA (19:34)
[2024-10-04 23:46] LABS: Glucose,Whole Blood 93 mg/dL (70-110)
[2024-10-05 05:10] LABS: Basophils # (A) 0.01 10*3/uL (0.00-0.10); Basophils % (A) 0.1 %; HCT 36.5 % (39.6-50.0); HGB 11.7 g/dL (13.0-17.0); Lymphocytes # (A) 0.61 10*3/uL (0.90-5.00); Lymphocytes % (A) 4.6 %; MCH 31.4 pg (27.0-32.0); MCHC 32.1 g/dL (32.0-37.0); MCV 97.9 fL (80.0-97.0); Mean Platelet Volume 9.9 fL (9.5-12.2); Monocytes # (A) 0.96 10*3/uL (0.20-1.00); Monocytes % (A) 7.2 %; Neutrophils # (A) 11.58 10*3/uL (1.80-7.70); Neutrophils % (A) 87.4 %; Platelet Count 159 10*3/uL (140-440); RBC 3.73 10*6/uL (4.40-5.60); RDW 13.9 % (11.5-14.5); WBC 13.25 10*3/uL (4.50-10.00)
[2024-10-05 05:27] LABS: African American GFR (CKD) >90 (>60 ml/min/1.73 sqM); Anion Gap 0 mmol/L; Blood Urea Nitrogen 29 mg/dL (9-20); Calcium 8.8 mg/dL (8.4-10.2); Carbon Dioxide 36 mmol/L (22-30); Chloride 102 mmol/L (98-107); Glucose 73 mg/dL (74-99); Non-African American GFR(CKD) >90 (>60 ml/min/1.73 sqM); Potassium 4.3 mmol/L (3.5-5.1); Sodium 138 mmol/L (137-145)
[2024-10-05 06:07] LABS: Glucose,Whole Blood 75 mg/dL (70-110)
[2024-10-05] MEDS: predniSONE 20 MG TAB PO SCH (08:11)
[2024-10-05 08:29] LABS: Glucose,Whole Blood 80 mg/dL (70-110)
[2024-10-05] MEDS ORDERED: predniSONE 20 MG TAB PO SCH (09:00)
[2024-10-05] MEDS: LORazepam 1 MG/0.5 ML VIAL IV PRN (09:50)
[2024-10-05] MEDS: SODIUM CHLORIDE 0.9% 1,000 ML IV SCH (10:23)
[2024-10-05 11:40] LABS: Glucose,Whole Blood 67 mg/dL (70-110)
[2024-10-05] MEDS: DEXTROSE 50% SYRINGE 50 ML IVP PRN ×2 (11:44→23:39)
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
[2024-10-05 16:42] LABS: Glucose,Whole Blood 72 mg/dL (70-110)
[2024-10-05 17:38] LABS: Glucose,Whole Blood 68 mg/dL (70-110)
[2024-10-05 18:08] LABS: Glucose,Whole Blood 126 mg/dL (70-110)
[2024-10-05 21:53] LABS: Glucose,Whole Blood 73 mg/dL (70-110)
--- NOTE | 2024-10-05 23:29 | PN ---
PROGRESS NOTE DATE OF SERVICE: 10/05/2024 SUBJECTIVE: This is a 69-year-old gentleman, who was admitted with COPD exacerbation. He was on mechanical ventilation and the patient was extubated. The patient continues to be confused. The patient is currently no code. The patient is closely monitored. The patient . Most recent chest x-ray reviewed. PAST MEDICAL HISTORY: Reviewed. REVIEW OF SYSTEMS: Could not be taken. CURRENT MEDICATIONS: Reviewed. PHYSICAL EXAMINATION: VITAL SIGNS: Pulse 105, blood pressure 164/122, brought to 130/96, respirations 20. HEENT: Conjunctivae normal. CARDIOVASCULAR: S1, S2. RESPIRATIONS: Bilaterally scattered rhonchi and crackles. ABDOMEN: Soft. NERVOUS SYSTEM: Nonfocal. LABORATORY DATA: Noted. ASSESSMENT: 1. Chronic obstructive pulmonary disease with acute exacerbation with acute purulent tracheobronchitis, status post acute hypoxic respiratory failure, status post mechanical ventilation. 2. Change in mental status with acute metabolic encephalopathy. 3. Relative hypotension. 4. Hypertension. 5. History of asthma. 6. Multiple complex medical issues. RECOMMENDATIONS: Recommended to continue with current medications, continue with symptomatic treatment. The patient has multiple medical issues at this time, fluctuating blood pressure, significant respiratory abnormalities as well as change in mental status. I would recommend repeat labs and the patient is no code. Closely monitor. Closely follow up with Pulmonary. Guarded prognosis. Further recommendations to follow. MMODL / IJN: [id number] /
[2024-10-05 23:30] LABS: Glucose,Whole Blood 68 mg/dL (70-110)
[2024-10-06 00:56] LABS: Glucose,Whole Blood 139 mg/dL (70-110)
--- NOTE | 2024-10-06 05:45 | XR ---
EXAMINATION TYPE: XR chest 1V portable DATE OF EXAM: 10/06/2024 CLINICAL INDICATION: Male, 69 years old with history of BIPAP dependent respiratory failure, progress study. TECHNIQUE: Two AP portable semiupright views of the chest are obtained. COMPARISON: Chest x-ray from 2 days earlier Background chronic emphysematous change is redemonstrated. Cardiac silhouette size is stable and with in normal limits. Patchy bibasilar opacity. Lungs otherwise remain grossly clear. Surgical change in the cervical and thoracolumbar spine is redemonstrated. IMPRESSION: Chronic emphysematous change with right greater than left bibasilar acute infiltrate and/ or atelectasis. [facility], , 10/06/2024 5:42 AM
[2024-10-06 06:06] LABS: Basophils # (A) 0.01 10*3/uL (0.00-0.10); Basophils % (A) 0.1 %; HCT 38.8 % (39.6-50.0); HGB 12.8 g/dL (13.0-17.0); Lymphocytes # (A) 0.27 10*3/uL (0.90-5.00); Lymphocytes % (A) 1.8 %; MCH 32.1 pg (27.0-32.0); MCV 97.2 fL (80.0-97.0); Mean Platelet Volume 10.4 fL (9.5-12.2); Monocytes # (A) 1.01 10*3/uL (0.20-1.00); Monocytes % (A) 6.7 %; Neutrophils # (A) 13.72 10*3/uL (1.80-7.70); Neutrophils % (A) 90.6 %; Platelet Count 174 10*3/uL (140-440); RBC 3.99 10*6/uL (4.40-5.60); RDW 13.7 % (11.5-14.5); WBC 15.13 10*3/uL (4.50-10.00)
[2024-10-06 06:28] LABS: Glucose,Whole Blood 87 mg/dL (70-110)
[2024-10-06 06:38] LABS: African American GFR (CKD) >90 (>60 ml/min/1.73 sqM); Anion Gap 4 mmol/L; Blood Urea Nitrogen 25 mg/dL (9-20); Calcium 8.9 mg/dL (8.4-10.2); Carbon Dioxide 33 mmol/L (22-30); Chloride 103 mmol/L (98-107); Glucose 86 mg/dL (74-99); Non-African American GFR(CKD) >90 (>60 ml/min/1.73 sqM); Potassium 3.9 mmol/L (3.5-5.1); Sodium 140 mmol/L (137-145)
[2024-10-06] MEDS: amLODIPine 2.5 MG TAB PO SCH (09:52)
[2024-10-06] MEDS: predniSONE 10 MG TAB PO SCH (09:52)
[2024-10-06 12:21] LABS: Glucose,Whole Blood 95 mg/dL (70-110)
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
[2024-10-06 14:37] VITALS: BMI 17.1
[2024-10-06] MEDS ORDERED: GLYCOPYRROLATE 0.2 MG/ML 2 ML VIAL IVP PRN (15:11)
[2024-10-06] MEDS: LORazepam 2 MG/ML INJ IV PRN (15:49)
[2024-10-06] MEDS: MORPHINE SULFATE 2 MG/ML SYRINGE IVP PRN (17:49)
[2024-10-06] MEDS: MORPHINE SULFATE 100 MG in SODIUM CHLORIDE 0.9% 90 ML IV SCH (17:59)
--- NOTE | 2024-10-06 18:46 | P.PN ---
Subjective This is a 69 years old male with past medical history of COPD. Presents with respiratory distress. He remains in the ICU. He is not doing well he was very agitated yesterday and he has to be treated for that. Currently he is more calm but still jittery. He is on BiPAP, he is poor historian. He still respiratory distress he still tachycardic tachypneic WBC 15,000, hemoglobin 12.8 and creatinine 0.38 Chest x-ray showing severe emphysematous changes which are chronic but there is bibasilar infiltrate more on the right side. Covered with ceftriaxone and prednisone Critical care team discussed the case with his brother and made him comfort care measures CODE STATUS changed to DNR. This looks appropriate given overall clinical condition and lack of improvement. Objective - Vital Signs Vital signs: Vital Signs Temp 98 F 10/06/24 08:00 Pulse 83 10/06/24 10:00 Resp 20 10/06/24 10:00 BP 144/106 10/06/24 10:00 Pulse Ox 97 10/06/24 10:00 FiO2 35 10/06/24 08:29 Intake & Output 10/05/24 10/06/24 10/06/24 18:59 06:59 18:59 Intake Total 0800.119 8509.160 500 Output Total 455 410 195 Balance 828.065 879.160 305 Weight 57.3 kg Intake: IV 1100 1100 400 Sodium Chloride 0.9% 1, 1000 1100 300 000 ml @ 100 mls/hr IV . Q10H [facility] Rx#:[id number] Sodium Chloride 0.9% 1, 100 000 ml @ 50 mls/hr IV . Q20H [facility] Rx#:[id number] cefTRIAXone 1 gm In 100 Sodium Chloride 0.9% 50 ml @ 100 mls/hr IVPB Q24HR [facility] Rx#:[id number] Intake, IV Titration 183.065 189.160 100 Amount Dexmedetomidine/0.9% NaCl 183.065 189.160 100 (Pmx) 400 mcg In Empty Bag 1 bag @ 0.2 MCG/KG/HR 2.91 mls/hr IV .Q24H [facility] Rx#:[id number] Output: Urine 455 410 195 Other: Voiding Method Indwelling Catheter Indwelling Catheter Indwelling Catheter ABP, PAP, CO, CI - Last Documented Arterial Blood Pressure 124/80 - Exam --GENERAL: The patient is confused on BiPAP, cannot provide information. Well developed, well nourished. Cachectic HEENT: Pupils are round and equally reacting to light. EOMI. No scleral icterus. No conjunctival pallor. Normocephalic, atraumatic. No pharyngeal erythema. No thyromegaly. CARDIOVASCULAR: S1 and S2 present. No murmurs, rubs, or gallops. *-PULMONARY: Decreased air entry especially on both basal sides, scattered wheezing. On BiPAP. Tachypneic ABDOMEN: Soft, nontender, nondistended, normoactive bowel sounds. No palpable organomegaly. MUSCULOSKELETAL: No joint swelling or deformity. EXTREMITIES: No cyanosis, clubbing, or pedal edema. NEUROLOGICAL: Gross neurological examination did not reveal any focal deficits. SKIN: No rashes. no petechiae. - Labs CBC & Chem 7: 10/06/24 05:35 10/06/24 05:35 Labs: Abnormal Lab Results - Last 24 Hours (Table) 10/05/24 10/05/24 10/05/24 Range/Units 11:39 17:36 18:07 WBC (4.50-10.00) 10*3/uL RBC (4.40-5.60) 10*6/uL Hgb (13.0-17.0) g/dL Hct (39.6-50.0) % MCV (80.0-97.0) fL MCH (27.0-32.0) pg Immature Gran # (0.00-0.04) 10*3/uL Neutrophils # (1.80-7.70) 10*3/uL Lymphocytes # (0.90-5.00) 10*3/uL Monocytes # (0.20-1.00) 10*3/uL Eosinophils # (0.04-0.35) 10*3/uL Carbon Dioxide (22-30) mmol/L BUN (9-20) mg/dL Creatinine (0.66-1.25) mg/dL POC Glucose (mg/dL) 67 L 68 L 126 H (70-110) mg/dL 10/05/24 10/06/24 10/06/24 Range/Units 23:29 00:55 05:35 WBC 15.13 H (4.50-10.00) 10*3/uL RBC 3.99 L (4.40-5.60) 10*6/uL Hgb 12.8 L (13.0-17.0) g/dL Hct 38.8 L (39.6-50.0) % MCV 97.2 H (80.0-97.0) fL MCH 32.1 H (27.0-32.0) pg Immature Gran # 0.12 H (0.00-0.04) 10*3/uL Neutrophils # 13.72 H (1.80-7.70) 10*3/uL Lymphocytes # 0.27 L (0.90-5.00) 10*3/uL Monocytes # 1.01 H (0.20-1.00) 10*3/uL Eosinophils # 0.00 L (0.04-0.35) 10*3/uL Carbon Dioxide (22-30) mmol/L BUN (9-20) mg/dL Creatinine (0.66-1.25) mg/dL POC Glucose (mg/dL) 68 L 139 H (70-110) mg/dL 10/06/24 Range/Units 05:35 WBC (4.50-10.00) 10*3/uL RBC (4.40-5.60) 10*6/uL Hgb (13.0-17.0) g/dL Hct (39.6-50.0) % MCV (80.0-97.0) fL MCH (27.0-32.0) pg Immature Gran # (0.00-0.04) 10*3/uL Neutrophils # (1.80-7.70) 10*3/uL Lymphocytes # (0.90-5.00) 10*3/uL Monocytes # (0.20-1.00) 10*3/uL Eosinophils # (0.04-0.35) 10*3/uL Carbon Dioxide 33 H (22-30) mmol/L BUN 25 H (9-20) mg/dL Creatinine 0.38 L (0.66-1.25) mg/dL POC Glucose (mg/dL) (70-110) mg/dL Microbiology - Last 24 Hours (Table) 09/30/24 14:20 Blood Culture - Final Blood Assessment and Plan Assessment: Acute COPD exacerbation Acute hypoxic respiratory failure Severe calorie protein malnutrition with BMI of 17.1 Hyperlipidemia Osteoarthritis Benign prostatic hypertrophy Status post back surgery for degenerative disc disease Bipolar/depression, not an active issue Plan: Continue with BiPAP Continue with sedatives Continue the steroids Continue with antibiotics Monitor vitals and labs Pulmonary team consult Patient was made DNR Plan to family to decide about comfort care measures with critical care team Prognosis is very poor
[2024-10-06] MEDS: ATROPINE OPHTH SOLN 1% 5ML BTL SUBLINGUAL PRN (22:58)
[2024-10-07 04:49] VITALS: BP 147/85; PULSE 118; TEMP 100.3
[2024-10-07] MEDS ORDERED: LORazepam 1 MG/0.5 ML VIAL IV PRN (08:28)
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
--- NOTE | 2024-10-07 15:11 | P.PN ---
Subjective Progress Note Date: 10/07/24 Patient is eval today resting comfortably in bed he remains on a morphine drip. Patient has congested lung sounds throughout. He is on comfort care. Unable to complete a review of systems as patient is currently unresponsive PHYSICAL EXAMINATION: GENERAL: The patient is unresponsive, not in any acute distress. Thin built male HEENT: Pupils are round and equally reacting to light. EOMI. No scleral icterus. No conjunctival pallor. Normocephalic, atraumatic. No pharyngeal erythema. No thyromegaly. CARDIOVASCULAR: S1 and S2 present. No murmurs, rubs, or gallops. PULMONARY: Congested rhonchi throughout ABDOMEN: Soft, nontender, nondistended, normoactive bowel sounds. No palpable organomegaly. MUSCULOSKELETAL: No joint swelling or deformity. EXTREMITIES: No cyanosis, clubbing, or pedal edema. NEUROLOGICAL: Unable to complete SKIN: No rashes. Assessment and plan Acute COPD exacerbation Acute hypoxic respiratory failure Severe calorie protein malnutrition with BMI of 17.1 Hyperlipidemia Osteoarthritis Benign prostatic hypertrophy Status post back surgery for degenerative disc disease Bipolar/depression, not an active issue Plan Patient is DNR and comfort care measures at this time he continues on a morphine The impression and plan of care has been dictated by Veronica Casas Nurse Practitioner as directed. Dr. Kiana MD I have performed a history and physical examination and medical decision making of this patient, discussed the same with the dictator, and agree with the dictators assessment and plan as written, documented as a scribe. Based on total visit time, I have performed more than 50% of this visit. Objective - Vital Signs Vital signs: Vital Signs Temp 100.3 F H 10/07/24 04:35 Pulse 118 H 10/07/24 04:35 Resp 4 L 10/07/24 08:00 BP 147/85 10/07/24 04:35 Pulse Ox 76 L 10/07/24 04:35 FiO2 35 10/06/24 15:00 Intake & Output 10/06/24 10/07/24 10/07/24 18:59 06:59 18:59 Intake Total 1100.967 151.996 57.867 Output Total 495 800 Balance 605.967 -648.004 57.867 Weight 57.3 kg Intake: IV 900 Sodium Chloride 0.9% 1, 800 000 ml @ 100 mls/hr IV . Q10H [facility] Rx#:[id number] cefTRIAXone 1 gm In 100 Sodium Chloride 0.9% 50 ml @ 100 mls/hr IVPB Q24HR [facility] Rx#:[id number] Intake, IV Titration 200.967 151.996 57.867 Amount Dexmedetomidine/0.9% NaCl 200 138.196 (Pmx) 400 mcg In Empty Bag 1 bag @ 0.2 MCG/KG/HR 2.91 mls/hr IV .Q24H [facility] Rx#:[id number] Morphine Sulfate 100 mg 0.967 13.8 57.867 In Sodium Chloride 0.9% 90 ml @ 2 MG/HR 2 mls/hr IV .Q24H [facility] Rx#: [id number] Oral 0 0 Output: Urine 495 800 Other: Voiding Method Indwelling Catheter Indwelling Catheter Indwelling Catheter ABP, PAP, CO, CI - Last Documented Arterial Blood Pressure 124/80 - Labs CBC & Chem 7: 10/06/24 05:35 10/06/24 05:35 Assessment and Plan Time with Patient: Less than 30
[2024-10-08 02:38] VITALS: RESP 8
[2024-10-08] MEDS: amLODIPine 5 MG TAB PO SCH (05:44)
[2024-10-08] MEDS ORDERED: predniSONE 10 MG TAB PO SCH (09:00)
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
--- NOTE | 2024-10-10 22:45 | P.DS ---
Providers Date of admission: 09/30/24 06:16 Attending physician: Aurelio Gallagher MD Consults: 09/30/24 06:14 Consult Physician Routine Consulting Provider: Maira Jon Consult Reason/Comments: COPD Do you want consulting provider notified?: Yes Primary care physician: Becca Pedro Hospital Course: Final Diagnosis Acute COPD exacerbation Acute hypoxic respiratory failure Severe calorie protein malnutrition with BMI of 17.1 Hyperlipidemia Osteoarthritis Benign prostatic hypertrophy Status post back surgery for degenerative disc disease Bipolar/depression, not an active issue Preliminary cause of Influenza A pneumonia and hypoxic respiratory failure Hospital Course This is a 69 years old male with past medical history of COPD. Presents with respiratory distress less than 24 hours after being discharged from the hospital. The patient was hospitalized for an acute COPD exacerbation secondary influenza A infection. The patient was in acute hypoxic respiratory failure and he was maintained on oxygen throughout his hospitalization at around 4 L/min nasal cannula. It was decided to discharge patient home yesterday afternoon on a course of Tamiflu, Symbicort as maintenance, prednisone burst taper and DuoNeb nebulizer treatments [id number]. He was admitted and monitored in the ICU. Covered with ceftriaxone and prednisone. Critical care team discussed the case with his brother and made him comfort care measures. CODE STATUS changed to DNR. This looks appropriate given overall clinical condition and lack of improvement. Patient was moved out of the ICU and started on morphine gtt. He . Please see medication reconciliation for a list of current medications. Thank you for allowing us to participate in the care of this patient. The impression and plan of care has been dictated by Veronica Casas, Nurse Practitioner as directed. Dr. Kiana MD I have performed a history and physical examination and medical decision making of this patient, discussed the same with the dictator, and agree with the dictators assessment and plan as written, documented as a scribe. Based on total visit time, I have performed more than 50% of this visit. Plan - Discharge Summary New Discharge Prescriptions: No Action Tamsulosin HCl [Flomax] 0.8 mg PO DAILY Atorvastatin [Lipitor] 20 mg PO HS Losartan [Cozaar] 25 mg PO DAILY #30 tab Ipratropium-Albuterol Nebulize [Duoneb 0.5 mg-3 mg/3 ml Soln] 3 ml INHALATION RT-QID PRN each PRN Reason: Shortness Of Breath Or Wheezing predniSONE See Taper PO DIRECTED #30 tab Budesonide-Formot 160-4.5 Mcg [Symbicort 160-4.5 Mcg Inhaler] 2 puff INHALATION RT-BID #1 each Oseltamivir [Tamiflu] 75 mg PO Q12HR 2 Days #3 cap Metoprolol Succinate (ER) [Toprol XL] 25 mg PO DAILY #30 tab Acetaminophen Tab [Tylenol] 650 mg PO Q6HR PRN tab PRN Reason: Mild Pain Or Fever > 100.5 QUEtiapine [SEROquel] 100 mg PO HS #20 tab Albuterol Sulfate [Ventolin HFA] 2 puff INHALATION RT-QID PRN PRN Reason: Shortness Of Breath Dutasteride [Avodart] 0.5 mg PO DAILY FLUoxetine HCL 80 mg PO DAILY Ipratropium-Albuterol Nebulize [Duoneb 0.5 mg-3 mg/3 ml Soln] 3 ml INHALATION RT-QID 30 Days #100 each Discharge Medication List Tamsulosin HCl [Flomax] 0.8 mg PO DAILY 09/18/17 [History] QUEtiapine [SEROquel] 100 mg PO HS #20 tab 06/20/21 [Rx] Atorvastatin [Lipitor] 20 mg PO HS 04/20/23 [History] Albuterol Sulfate [Ventolin HFA] 2 puff INHALATION RT-QID PRN 09/25/24 [History] Dutasteride [Avodart] 0.5 mg PO DAILY 09/25/24 [History] FLUoxetine HCL 80 mg PO DAILY 09/25/24 [History] Acetaminophen Tab [Tylenol] 650 mg PO Q6HR PRN tab 09/29/24 [Rx] Budesonide-Formot 160-4.5 Mcg [Symbicort 160-4.5 Mcg Inhaler] 2 puff INHALATION RT-BID #1 each 09/29/24 [Rx] Ipratropium-Albuterol Nebulize [Duoneb 0.5 mg-3 mg/3 ml Soln] 3 ml INHALATION RT-QID 30 Days #100 each 09/29/24 [Rx] Ipratropium-Albuterol Nebulize [Duoneb 0.5 mg-3 mg/3 ml Soln] 3 ml INHALATION RT-QID PRN each 09/29/24 [Rx] Losartan [Cozaar] 25 mg PO DAILY #30 tab 09/29/24 [Rx] Metoprolol Succinate (ER) [Toprol XL] 25 mg PO DAILY #30 tab 09/29/24 [Rx] Oseltamivir [Tamiflu] 75 mg PO Q12HR 2 Days #3 cap 09/29/24 [Rx] predniSONE See Taper PO DIRECTED #30 tab 09/29/24 [Rx] Follow up Appointment(s)/Referral(s): Becca Pedro DO [Primary Care Provider] - 1-2 days Discharge Disposition: - Preliminary Cause of Preliminary Cause of : Influenza A
[2024-10-13] MEDS ORDERED: predniSONE 20 MG TAB PO SCH (09:00)
[2024-10-17] MEDS ORDERED: predniSONE 10 MG TAB PO SCH (09:00)
== END 2024-10-08 16:05 | disposition expired | DRG 208 ==
LOC: EC 06:09 → 3SCARD 06:16 → 2SICU 17:18 → 5NMEDONC 10-07 04:46
PROVIDERS: ADMIT Internal Medicine; ATTEND Internal Medicine
PROC: 5A09357 Assistance with Respiratory Ventilation, Less than 24 Consecutive Hours, Continuous Positive Airway Pressure (ICD-10-PCS; 2024-09-30)
PROC: 5A1945Z Respiratory Ventilation, 24-96 Consecutive Hours (ICD-10-PCS; principal; 2024-10-01)
PROC: 0BH17EZ Insertion of Endotracheal Airway into Trachea, Via Natural or Artificial Opening (ICD-10-PCS; principal; 2024-10-01)
PROC: 3E043XZ Introduction of Vasopressor into Central Vein, Percutaneous Approach (ICD-10-PCS; 2024-10-01)
PROC: 3E0G76Z Introduction of Nutritional Substance into Upper GI, Via Natural or Artificial Opening (ICD-10-PCS; 2024-10-01)
PROC: 0DH67UZ Insertion of Feeding Device into Stomach, Via Natural or Artificial Opening (ICD-10-PCS; 2024-10-01)
PROC: 5A09457 Assistance with Respiratory Ventilation, 24-96 Consecutive Hours, Continuous Positive Airway Pressure (ICD-10-PCS; 2024-10-04)
DX: J10.01 Influenza due to other identified influenza virus with the same other identified influenza virus pneumonia (principal); E43 Unspecified severe protein-calorie malnutrition; G93.41 Metabolic encephalopathy; J96.01 Acute respiratory failure with hypoxia; J96.02 Acute respiratory failure with hypercapnia; Z51.5 Encounter for palliative care; J44.0 Chronic obstructive pulmonary disease with (acute) lower respiratory infection; F31.9 Bipolar disorder, unspecified; I10 Essential (primary) hypertension; J44.1 Chronic obstructive pulmonary disease with (acute) exacerbation; Z68.1 Body mass index [BMI] 19.9 or less, adult; J10.1 Influenza due to other identified influenza virus with other respiratory manifestations; Z66 Do not resuscitate; I95.9 Hypotension, unspecified; H91.90 Unspecified hearing loss, unspecified ear; Z78.1 Physical restraint status; J20.9 Acute bronchitis, unspecified; M19.90 Unspecified osteoarthritis, unspecified site; N40.0 Benign prostatic hyperplasia without lower urinary tract symptoms; Z98.1 Arthrodesis status; G89.29 Other chronic pain; E78.5 Hyperlipidemia, unspecified; F41.9 Anxiety disorder, unspecified; Z71.3 Dietary counseling and surveillance; S12.500S Unspecified displaced fracture of sixth cervical vertebra, sequela; V89.2XXS Person injured in unspecified motor-vehicle accident, traffic, sequela; S12.600S Unspecified displaced fracture of seventh cervical vertebra, sequela; Z87.891 Personal history of nicotine dependence; Z79.51 Long term (current) use of inhaled steroids; Z79.899 Other long term (current) drug therapy
CPT/HCPCS: 36415; 36600; 71045; 80048; 80053; 82805; 83036; 83605; 83735; 83880; 84132; 84145; 85025; 85610; 85730; 87040; 87070; 87205; 87636; 93005; 94002; 94003; 94640; 94660; 94760; 96374; 96375; 96376; 99291